=== PATIENT | male | born 1945 | race Caucasian/White ===

== ENCOUNTER 2018-03-22 21:44 | Inpatient (IN) ==
--- NOTE | 2018-03-22 22:28 | Emergency Department Note ---
Disposition Clinical Impression: Acute pancreatitis Qualifiers: Pancreatitis type: unspecified pancreatitis type Acute pancreatitis complication: unspecified Qualified Code(s): K85.90 - Acute pancreatitis without necrosis or infection, unspecified Disposition: Admitted As Inpatient Condition: Fair Time of Disposition: 07:20 Abdominal Pain HPI - General Chief Complaint: ED Dental/Oral Stated Complaint: abd pain Time Seen by Provider: 03/22/18 22:22 Source: patient, EMS Nursing Notes Reviewed: Yes Vital Signs Reviewed: Yes - History of Present Illness HPI Narrative: [place] 3-year-old male presents as transfer from the [place] for pancreatitis. Suspects he may also have cholelithiasis. Patient is a poor historian secondary to his history of dementia. He believes that he is here because somebody is out getting groceries for him. Unknown if this is his baseline. Review of systems unobtainable secondary to patient's dementia. Pain Scale: 5 - Related Data Home Medications Medication Instructions Recorded Confirmed Adults Multivitamin Caplet 1 tab PO DAILY 03/23/18 03/23/18 Apixaban 5 mg PO 1-2XD 03/23/18 03/23/18 Aspirin 81 mg PO DAILY 03/23/18 03/23/18 Atorvastatin 80 mg PO DAILY 03/23/18 03/23/18 Calcium 250+D Tablet 250 mg PO 1-2XD 03/23/18 03/23/18 Cholecalciferol (D-3) 1,000 units PO 1-2XD 03/23/18 03/23/18 Colace 100 mg PO 1-2XD PRN 03/23/18 03/23/18 Ferrous Sulfate 325 mg PO 1-2XD 03/23/18 03/23/18 Furosemide [Lasix] 20 mg PO DAILY 03/23/18 03/23/18 Gabapentin [Neurontin] 100 mg PO 1-2XD 03/23/18 03/23/18 Hydrophilic Cream 1-3XD 03/23/18 Insulin Glargine 22 units SQ HS 03/23/18 03/23/18 Melatonin 3 mg Tablet 9 mg PO HS 03/23/18 03/23/18 Metformin HCl 1,000 mg PO 1-2XD 03/23/18 03/23/18 Nystatin POWDER 1 appl 03/23/18 Ranitidine HCl 150 mg PO 1-2XD 03/23/18 03/23/18 Sennosides [Senokot] 8.6 mg PO 1-2XD PRN 03/23/18 03/23/18 Allergies Allergy/AdvReac Type Severity Reaction Status Date / Time Amoxicillin Allergy See Verified 03/22/18 21:56 Comments clavulanic acid Allergy See Verified 03/22/18 21:56 Comments fluvastatin Allergy See Verified 03/22/18 21:56 Comments lovastatin Allergy See Verified 03/22/18 21:56 Comments niacin Allergy See Verified 03/22/18 21:56 Comments omeprazole Allergy See Verified 03/22/18 21:56 Comments simvastatin Allergy See Verified 03/22/18 21:56 Comments topiramate Allergy See Verified 03/22/18 21:56 Comments venlafaxine Allergy See Verified 03/22/18 21:56 Comments All systems ED: reviewed and negative except as stated. Review of Systems: As Per HPI Abdominal Pain PMH - Past Medical History Medical history: Reports: COPD, DVT, dementia, diabetes, GERD, hyperlipidemia, hypertension, osteoporosis Male Surgical History: Reports: non-contributory - Social History Smoking status: Unknown if ever smoked Alcohol use: Reports: none Drug use: Reports: none Physical Exam Vital Signs Reviewed General: Patient is alert, oriented, and in no acute distress. Head: atraumatic, normocephalic Eye: normal appearance, PERRL, EOMI, no scleral icterus, no conjunctival injection ENT: mucous membranes moist, normal external ear exam Neck: normal inspection, trachea midline, full ROM Chest: normal inspection, symmetric chest rise Respiratory: Good respiratory effort. Bilateral breath sounds are clear without wheezing, crackles, or rhonchi. Cardiovascular: Regular rate and rhythm. No clicks, rubs, gallops, or murmors. Normal heart sounds. Abdomen: Bowel sounds present normoactive. Abdomen is soft, nondistended. Mild epigastric and mild right-sided abdominal tenderness. No guarding or rebound. Musculoskeletal: Spontaneously moving all extremities. Skin: warm, dry, intact. Neuro: Alert and oriented x4. Sensation light touch intact. Psych: Patient's affect is appropriate for situation. - General Limitations: no limitations General appearance: alert, in no apparent distress Course Course Narrative: [facility] -[facility] abdomen pelvis without contrast of 03/22/18:1. CT findings consistent with mild acute pancreatitis. No associated fluid collection. 2. Trace pericholecystic fluid. Bodies may be suggestive of acute cholecystitis. Recommend right upper quadrant ultrasound for further evaluation. 3. Left nonobstructing nephrolithiasis. 4. Atherosclerosis. -Two-view x-ray chest of 03/22/18: Impression-stable chest. -Three-view x-ray right wrist 03/22/18: Impression-no acute osseous abnormalities -Serum hematology of 03/22/18 at 19:09 WBC 18.2 Hgb 11.5 HCT 33.9 -Serum chemistry 03/22 at 19:09 Sodium 133 Potassium 5.1 Chloride 97 CO2 26 Glucose 380 BU and 47 Creatinine 2.40 EGFR 28.2 Calcium 9.4 Magnesium 2.1 Albumin 3.3 ALP 505 AST 284 ALT 448 Alkaline phosphatase 505 Lipase greater than 3000 Total bili 1.8 Direct bili 1.4 CK 45 Troponin less than 0.015 -Urinalysis 03 22 2018 at 20:30 Urine bilirubin negative Urine ketones negative Specific gravity 1.011 Occult blood negative PH 5.0 Nitrite negative We will ultrasound patient's gallbladder looking for possible cholelithiasis. I discussed the patient with the admitting hospitalist. He is in agreement to accept the patient for continued evaluation of pancreatitis with possibility of cholelithiasis. Gallbladder Ultrasound 03/22/18 22:35 IMPRESSION: 1. Overall the exam is severely limited due to bowel gas. 2. Indeterminate for cholelithiasis. There is no wall thickening or cholecystitis. The technologist demonstrated presence of sonographic Daniel sign. 3. Dilated common bowel duct measuring 1 cm, choledocholithiasis cannot be excluded. D/ / 03/23/2018 05:11:11 Aris Moore MD / elmer Interpreting Provider: Aris Moore MD Chest X-Ray 03/22/18 23:23 IMPRESSION: Negative portable study. D/ / Zo Skinner Cha, MD / Zo Skinner Cha, MD Interpreting Provider: Zo Skinner Cha, MD Vital Signs Temperature 98.1 F 03/22/18 21:57 Pulse Rate 98 03/22/18 21:57 Respiratory Rate 20 03/22/18 21:57 Blood Pressure 136/88 03/22/18 21:57 O2 Sat by Pulse Oximetry 95 03/22/18 21:57 Temperature 98.4 F 03/23/18 06:47 Pulse Rate 78 03/23/18 06:47 Respiratory Rate 16 03/23/18 06:47 Blood Pressure 134/68 03/23/18 06:47 O2 Sat by Pulse Oximetry 96 03/23/18 06:47 Oxygen Delivery Oxygen Delivery Room Air Abdominal Pain - Lab Data Result diagrams: 03/23/18 00:13 03/23/18 00:13 Lab Results 03/23/18 03/23/18 03/23/18 Range/Units 00:13 00:13 00:13 WBC 16.5 H (4.3-11.1) K/mcL RBC 3.21 L (4.19-5.50) M/mcL Hgb 10.5 L (12.9-16.9) g/dL Hct 30.3 L (37.5-50.1) % MCV 94.4 (83.0-100.0) fL MCH 32.7 (28.0-33.3) pg MCHC 34.7 (31.6-35.5) g/dL RDW 13.1 (11.5-14.5) % Plt Count 198 (140-400) K/mcL MPV 9.8 (9.4-12.4) fL Immature Gran % 0.3 (0-4) % Seg Neutrophils % 86.2 % Lymphocytes % 8.2 % Monocytes % 5.1 % Eosinophils % 0.0 % Basophils % 0.2 % Neutrophils # 14.2 H (1.6-8.9) K/mcL Lymphocytes # 1.4 (0.6-4.6) K/mcL Monocytes # 0.9 (0.0-1.3) K/mcL Eosinophils # 0.0 (0.0-0.6) K/mcL Basophils # 0.0 (0.0-0.2) K/mcL Immature Plt Fraction 3.0 (1.1-6.1) % Sodium 134 L (136-145) mEq/L Potassium 4.6 (3.5-5.1) mEq/L Chloride 98 (98-107) mEq/L Carbon Dioxide 23 (23-29) mEq/L BUN 49 H (8-23) mg/dL Creatinine 1.83 H (0.70-1.30) mg/dL Est GFR ( Amer) 44 L (> 60) Est GFR (Non-Af Amer) 36 L (> 60) BUN/Creatinine Ratio 27 H (6-26) Glucose 317 H (70-105) mg/dL Calculated Osmolality 303 H (280-300) Calcium 9.5 (8.6-10.3) mg/dL Phosphorus 2.3 L (2.7-4.5) mg/dL Magnesium 1.8 (1.6-2.6) mg/dL Total Bilirubin 1.8 H (0.3-1.0) mg/dL AST 198 H (13-39) Units/L ALT 362 H (7-52) Units/L Alkaline Phosphatase 403 H (34-104) Units/L Serum Total Protein 7.4 (6.4-8.9) g/dL Albumin 3.8 (3.5-5.7) g/dL Globulin 3.6 H (2.4-3.5) g/dL Albumin/Globulin Ratio 1.1 (1.1-2.2)
[2018-03-22] MEDS ORDERED: 0.9 % Sodium Chloride 500 ML IVC ONE (22:56)
[2018-03-22] MEDS ORDERED: Naloxone 0.4 MG/ML INJ IVP PRN (23:15)
[2018-03-22] MEDS ORDERED: D5% in Water 1,000 ML IVC PRN (23:21)
[2018-03-22] MEDS ORDERED: *HR* Dextrose 50 % in Water (Syg) 50 ML SYRINGE IVP PRN (23:21)
[2018-03-22] MEDS ORDERED: Dextrose Gel 15 GM/37.5 ML TUBE PO PRN ×2 (23:21)
--- NOTE | 2018-03-22 23:38 | Emergency Department Note ---
Disposition Clinical Impression: Acute pancreatitis Qualifiers: Pancreatitis type: unspecified pancreatitis type Acute pancreatitis complication: unspecified Qualified Code(s): K85.90 - Acute pancreatitis without necrosis or infection, unspecified Disposition: Admitted As Inpatient Condition: Fair General Adult HPI - General Chief complaint: ED Abdominal Pain Stated complaint: abd pain Time Seen by Provider: 03/22/18 22:22 Source: patient, EMS Limitations: no limitations Nursing Notes Reviewed: Yes Vital Signs Reviewed: Yes - History of Present Illness Pain Scale: 5 - Related Data Allergies Allergy/AdvReac Type Severity Reaction Status Date / Time Amoxicillin Allergy See Verified 03/22/18 21:56 Comments clavulanic acid Allergy See Verified 03/22/18 21:56 Comments fluvastatin Allergy See Verified 03/22/18 21:56 Comments lovastatin Allergy See Verified 03/22/18 21:56 Comments niacin Allergy See Verified 03/22/18 21:56 Comments omeprazole Allergy See Verified 03/22/18 21:56 Comments simvastatin Allergy See Verified 03/22/18 21:56 Comments topiramate Allergy See Verified 03/22/18 21:56 Comments venlafaxine Allergy See Verified 03/22/18 21:56 Comments Past Medical History - Past Medical History Medical history: Reports: COPD, DVT, dementia, diabetes, GERD, hyperlipidemia, hypertension, osteoporosis - Social History Smoking Status: Unknown if ever smoked Alcohol use: Reports: none Drug use: Reports: none Physical Exam - General Limitations: no limitations General appearance: alert, in no apparent distress Course Vital Signs Temperature 98.1 F 03/22/18 21:57 Pulse Rate 98 03/22/18 21:57 Respiratory Rate 20 03/22/18 21:57 Blood Pressure 136/88 03/22/18 21:57 O2 Sat by Pulse Oximetry 95 03/22/18 21:57 Temperature 98.1 F 03/22/18 21:57 Pulse Rate 98 03/22/18 21:57 Respiratory Rate 18 03/23/18 00:20 Blood Pressure 143/59 03/23/18 00:20 O2 Sat by Pulse Oximetry 95 03/22/18 21:57 Oxygen Delivery Oxygen Delivery Room Air Medical Decision Making - Lab Data Result diagrams: 03/23/18 00:13 Lab Results 03/23/18 Range/Units 00:13 WBC 16.5 H (4.3-11.1) K/mcL RBC 3.21 L (4.19-5.50) M/mcL Hgb 10.5 L (12.9-16.9) g/dL Hct 30.3 L (37.5-50.1) % MCV 94.4 (83.0-100.0) fL MCH 32.7 (28.0-33.3) pg MCHC 34.7 (31.6-35.5) g/dL RDW 13.1 (11.5-14.5) % Plt Count 198 (140-400) K/mcL MPV 9.8 (9.4-12.4) fL Immature Gran % 0.3 (0-4) % Seg Neutrophils % 86.2 % Lymphocytes % 8.2 % Monocytes % 5.1 % Eosinophils % 0.0 % Basophils % 0.2 % Neutrophils # 14.2 H (1.6-8.9) K/mcL Lymphocytes # 1.4 (0.6-4.6) K/mcL Monocytes # 0.9 (0.0-1.3) K/mcL Eosinophils # 0.0 (0.0-0.6) K/mcL Basophils # 0.0 (0.0-0.2) K/mcL Immature Plt Fraction 3.0 (1.1-6.1) % - Radiology Data Radiology results reviewed: Yes I reviewed the patient's radiology results. Gallbladder Ultrasound 03/22/18 22:35 IMPRESSION: 1. the overall exam is severely limited due to bowel gas. 2. Indeterminate for cholelithiasis. There is no wall thickening or cholecystitis. The technologist demonstrated presence of sonographic Daniel's sign. 3. Dilated common bowel duct measuring 1 cm, choledocholithiasis cannot be excluded. D/ / Aris Moore MD / Aris Moore MD Interpreting Provider: Aris Moore MD Attestation Statement - Attestation Attestation: I, Woody Bonner MD, personally evaluated this patient and discussed their management with the resident physician. I reviewed the resident's note and agree with the documented findings, medical decision making, and plan of care. 73-year-old male transferred here from the [place] for admission for pancreatitis and possible cholecystitis. Patient presented there with one day history of abdominal pain in the upper abdomen. Also nausea and one episode of vomiting. He was evaluated at the [place] and had a CT scan as well as lab work. He was found to have acute pancreatitis with a lipase greater than 3000. CT consistent with acute pancreatitis but also some questionable pericholecystic fluid and ultrasound recommended. On examination patient is a well-developed obese elderly male in no acute distress. He is alert. There is no cyanosis or diaphoresis. Breath sounds are decreased but equal bilaterally. Heart regular rate and rhythm. Abdomen is soft with present bowel sounds. There is mild epigastric tenderness. The hospitalist, Dr. Apodaca, was consulted and accepted admission of the patient.
--- NOTE | 2018-03-22 23:45 | Internal Med History&Physical ---
Date of Encounter: 03/23/18 Time of Encounter: 23:00 Internal Medicine - H&P: HPI Chief complaint: Abdominal pain, nausea and vomiting History of present illness: Mr. Urena is a 73 year old male with pmh of diabetes presenting after he was transferred from the [place] for acute pancreatitis. He reported was sent to his PCP for abdominal pain , nausea and vomiting. PCP subsequently dis labs showing a lipase of [address] as a CT scan showing acute pancreatitis. He has therefore been sent here for further management. Patient has a history of dementia and is unable to provide a lot of information. He does admit to abdominal pain, nausea and vomiting Past Med Surg Social Fam HX - Past Medical History Medical history: COPD, DVT, dementia, diabetes, GERD, hyperlipidemia, hypertension, osteoporosis Additional medical history: anemia, neuropathy, PSA, - Past Surgical History Additional surgical history: unknown surgical - Social History Smoking Status: Unknown if ever smoked Alcohol use: none Drug use: none Internal Medicine - H&P: Meds Apixaban [Eliquis] 5 mg PO BID 03/23/18 [History] Aspirin [Lo-Dose Aspirin EC] 81 mg PO DAILY 03/23/18 [History] Atorvastatin Calcium [Lipitor] 40 mg PO HS 03/23/18 [History] Calcium Carbonate/Vitamin D3 [Calcium 250+D Tablet] 1 tab PO BID 03/23/18 [ History] Cholecalciferol (D-3) [Vitamin D] 2,000 unit PO DAILY 03/23/18 [History] Docusate [Colace] 100 mg PO BID PRN 03/23/18 [History] Ferrous Sulfate 325 mg PO BIDWM 03/23/18 [History] Furosemide [Lasix] 20 mg PO DAILY 03/23/18 [History] Gabapentin [Neurontin] 100 mg PO BID 03/23/18 [History] Insulin Glargine,Hum.rec.anlog [Basaglar Kwikpen U-100] 22 unit SQ HS 03/23/18 [ History] Melatonin/Pyridoxine HCl (B6) [Melatonin 3 mg Tablet] 3 tab PO HS 03/23/18 [ History] Metformin HCl 1,000 mg PO BID 03/23/18 [History] Multivitamin [One Daily Multivitamin] 1 tab PO DAILY 03/23/18 [History] Ranitidine HCl [Heartburn Relief] 150 mg PO BID 03/23/18 [History] Sennosides [Evac-U-Gen] 8.6 mg PO DAILY PRN 03/23/18 [History] 3 Allergy/AdvReac Type Severity Reaction Status Date / Time Amoxicillin Allergy See Verified 03/23/18 08:54 Comments clavulanic acid Allergy See Verified 03/23/18 08:54 Comments fluvastatin Allergy See Verified 03/23/18 08:54 Comments lovastatin Allergy See Verified 03/23/18 08:54 Comments niacin Allergy See Verified 03/23/18 08:54 Comments omeprazole Allergy See Verified 03/23/18 08:54 Comments simvastatin Allergy See Verified 03/23/18 08:54 Comments topiramate Allergy See Verified 03/23/18 08:54 Comments venlafaxine Allergy See Verified 03/23/18 08:54 Comments ROS unobtainable: due to mental status All Systems PM: A 10-system review of systems was performed and is negative for pertinent findings except as documented above in the HPI. - Gastrointestinal Gastrointestinal: abdominal pain, vomiting - Constitutional Vitals: Temp Pulse Resp BP Pulse Ox 98.1 F 98 20 136/88 95 03/22/18 21:57 03/22/18 21:57 03/22/18 21:57 03/22/18 21:57 03/22/18 21:57 - Head Head exam: Present: atraumatic, normocephalic - Eye Eye exam: Present: PERRL, conjuntiva pink, sclera anicteric Pupils: Present: PERRL - Neck Neck exam general surgery: Present: supple, trachea midline. Absent: lymphadenopathy - Respiratory Respiratory exam: Present: CTAB. Absent: accessory muscle use, rales, rhonchi, wheezes - Cardiovascular Cardiovascular exam: Present: RRR, +S1, +S2. Absent: diastolic murmur, gallop, rubs, systolic murmur - GI/Abdominal GI/Abdominal exam: Present: normal bowel sounds, soft, tenderness, no peritoneal signs. Absent: distended - Extremities Exam Extremities exam: Present: warm, radial pulses palpable and symmetrical. Absent : calf tenderness, cyanotic, pedal edema - Neurological Exam Neurological exam: Present: CN II-XII intact, oriented X3, no focal deficits. Absent: pronater drift, facial droop, speech deficit - Skin Skin exam: Present: dry, intact Internal Med - H&P Results - Labs CBC & Chem 7: 03/23/18 00:13 03/23/18 00:13 - Assessment and plan (1) Acute pancreatitis Current Visit: Yes Status: Acute Assessment and plan: Will keep , NPO, start on IV fluids, pain control. F/U ultrasound to r/o out any abscesses/ fluid collections in light of leukocytosis Qualifiers: Pancreatitis type: unspecified pancreatitis type Acute pancreatitis complication: unspecified Qualified Code(s): K85.90 - Acute pancreatitis without necrosis or infection, unspecified (2) Leukocytosis Current Visit: Yes Status: Acute Assessment and plan: R/o sepsis, query pancreatic pseudocyst/aabscess, f/u abdominal ultrasound, f/u blood cultures ancxr, urinalysis. start empirically on aztreonam. may be 2/2 to dehydration. repeat CBC Qualifiers: Qualified Code(s): D72.829 - Elevated white blood cell count, unspecified (3) Acute kidney injury Current Visit: Yes Status: Acute Assessment and plan: CHEMA vs Chema on CKD. No baseline creatinine available. Patients creatinie from [employer] paper work is 2.40. Will give Iv fluids. Monitor creatinine (4) Diabetes mellitus Current Visit: Yes Status: Acute Assessment and plan: Place on sliding scale. Monitor fingersticks Qualifiers: Qualified Code(s): E11.9 - Type 2 diabetes mellitus without complications (5) Transaminitis Current Visit: Yes Status: Acute Assessment and plan: F/u abdominal ultrasound. IV fluid hydration (6) DVT prophylaxis Current Visit: Yes Status: Acute Assessment and plan: Heparin sc - Time Spent With Patient Total time spent is greater than 50% in coordination of care (as documented) at patient's floor/unit and/or counseling patient:
[2018-03-23] MEDS: Aztreonam 1,000 MG in Water for inj. (sterile) 20 ML 10 ML IVP SCH ×3 (00:13→17:04)
[2018-03-23] MEDS: 0.9 % Sodium Chloride 1,000 ML IVC SCH ×3 (00:16→18:42)
[2018-03-23 00:45] LABS: Basophils % 0.2 %; Hematocrit 30.3 % (37.5-50.1); Hemoglobin 10.5 g/dL (12.9-16.9); Immature Granulocytes % 0.3 % (0-4); Lymphocytes # 1.4 K/mcL (0.6-4.6); Lymphocytes % 8.2 %; Mean Corpuscular HGB Conc 34.7 g/dL (31.6-35.5); Mean Corpuscular Hemoglobin 32.7 pg (28.0-33.3); Mean Corpuscular Volume 94.4 fL (83.0-100.0); Mean Platelet Volume 9.8 fL (9.4-12.4); Monocytes # 0.9 K/mcL (0.0-1.3); Monocytes % 5.1 %; Neutrophils # 14.2 K/mcL (1.6-8.9); Platelet Count 198 K/mcL (140-400); Red Blood Count 3.21 M/mcL (4.19-5.50); Red Cell Distribution Width 13.1 % (11.5-14.5); Segmented Neutrophils % 86.2 %
[2018-03-23] MEDS: Insulin LISPRO 300 UNITS/3 ML VIAL SQ SCH ×4 (01:15→18:46)
[2018-03-23 03:19] LABS: Bilirubin,Urine Negative (Negative); Blood,Urine Negative (Negative); Clarity,Urine Cloudy (Clear); Color,Urine Dark Yellow (Yellow); Glucose,Urine (UA) Normal (Normal); Ketones,Urine Negative (Negative); Leukocyte Esterase,Urine Trace (Negative); Nitrite,Urine Negative (Negative); PH,Urine 5.5 pH Units (5.0-8.0); Protein,Urine 100 mg/dL (Neg-Trace); Specific Gravity,Urine 1.018 (1.010-1.025); Urobilinogen,Urine Normal (Normal)
[2018-03-23 03:21] LABS: Squamous Epithelial Cell,Urine Many per lpf (None-Few)
[2018-03-23 03:40] LABS: Amorphous Sediment,Urine Few (Few); Bacteria,Urine Few per hpf (None-Few); Hyaline Casts,Urine Few per lpf (None-Few); RBC,Urine 0-3 per hpf (0-3)
[2018-03-23 04:46] LABS: Magnesium 1.8 mg/dL (1.6-2.6); Phosphorous 2.3 mg/dL (2.7-4.5)
[2018-03-23 04:47] LABS: Albumin 3.8 g/dL (3.5-5.7); Albumin/Globulin Ratio 1.1 (1.1-2.2); Bilirubin,Total 1.8 mg/dL (0.3-1.0); Calcium 9.5 mg/dL (8.6-10.3); Globulin 3.6 g/dL (2.4-3.5); Potassium 4.6 mEq/L (3.5-5.1); Total Protein 7.4 g/dL (6.4-8.9)
[2018-03-23 08:36] LABS: Estimated Average Glucose 157 mg/dl; Hemoglobin A1C 7.1 %
--- NOTE | 2018-03-23 13:09 | Gastroenterology Consult Note ---
<Art Holbrook - Last Filed: 03/23/18 14:22> Date of Encounter: 03/23/18 Time of Encounter: 13:08 - Assessment and plan (1) Acute pancreatitis Current Visit: Yes Status: Acute Assessment and plan: - Evidence of obstruction given elevated Alk phos, LFTs, CBD dilation - Suspect gallstone pancreatitis however US was obstructed by bowel gas. Denies alcohol use, family history of GI problems. - Radiologist contacted personally and says there is no definite obstructing stone - CT at [facility] shows mild inflammatory fat stranding around pancreatitis. Lipase > 3000 - Patient is asymptomatic right now. - MRCP ordered and pending. - Labs improving from [facility]. Plan - Possible ERCP tonight/tomorrow pending results of MRCP - Patient may have passed the stone or may have moved. MRCP will confirm. - NPO Supportive care Qualifiers: Pancreatitis type: unspecified pancreatitis type Acute pancreatitis complication: unspecified Qualified Code(s): K85.90 - Acute pancreatitis without necrosis or infection, unspecified (2) Gallstone pancreatitis Current Visit: Yes Status: Suspected Assessment and plan: - As above. - Unsure of cause of CBD dilation. Radiologist contacted and states that it may be an overestimation. - Will follow up on MRCP. - Time Spent With Patient Total time spent is greater than 50% in coordination of care (as documented) at patient's floor/unit and/or counseling patient: GI History of Present Illness - Data of Consult Consult date: 03/23/18 Requesting Physician: Manav Apodaca MD - Consult Narrative Reason for consult: Pancreatitis, CBD dilation History of present illness: Mr. Urena is a 73 year old male with past medical history of COPD, diabetes, dementia, GERD presents to emergency room from [facility] with plan of abdominal pain 1 day. No overdose of a history of dementia and is unable to provide full history. He states that he awoke with mid abdominal sharp pain without radiation on day of admission. Currently during time of interview, he denies any symptoms. He states that he was experiencing some nausea with 1 episode of vomiting including food contents and no blood however this resolved as well. He denies any changes in bowel movements since his last one was yesterday morning. He has never experienced pain like this in the past. At the [facility] labs: -CT abdomen pelvis without contrast of 03/22/18:1. CT findings consistent with mild acute pancreatitis. No associated fluid collection. 2. Trace pericholecystic fluid. Bodies may be suggestive of acute cholecystitis. Recommend right upper quadrant ultrasound for further evaluation. 3. Left nonobstructing nephrolithiasis. 4. Atherosclerosis. WBC 18.2, Hgb 11.5, HCT 33.9 Sodium 133 Potassium 5.1 Chloride 97 CO2 26 Glucose 380 BU and 47 Creatinine 2.40 EGFR 28.2 Calcium 9.4 Magnesium 2.1 Albumin 3.3 ALP 505 AST 284 ALT 448 Alkaline phosphatase 505 Lipase greater than 3000 Total bili 1.8 Direct bili 1.4 CK 45 Patient denies any abdominal surgeries. He states he is a former smoker quitting proximally 5 years ago. Denies any history of heavy drinking. Denies any recreational drug abuse. Gallbladder ultrasound at this facility shows calm bile duct dilation at approximately 1.0 cm. Film is noted to be severely obscured due to bowel gas. Past Med Surg Social Fam HX - Past Medical History Medical history: COPD, DVT, dementia, diabetes, GERD, hyperlipidemia, hypertension, osteoporosis Additional medical history: anemia, neuropathy, PSA, Psychiatric history: other - Past Surgical History Additional surgical history: unknown surgical - Social History Smoking Status: Unknown if ever smoked Smokeless Tobacco Status: No Alcohol use: none Drug use: none ROS unobtainable: due to mental status - Gastrointestinal Gastrointestinal: Present: abdominal pain, nausea, vomiting. Absent: change in bowel habits, coffee ground emesis, constipation, diarrhea, heartburn, hematemesis, hematochezia, melena - Constitutional Constitutional: no fever(s) - Cardiovascular Cardiovascular ROS: Absent: chest pain - Respiratory Respiratory IM: Present: dyspnea - Neurological ROS Neurological GI: Present: confusion - Constitutional Vitals: Temp Pulse Resp BP Pulse Ox 98.2 F 76 18 155/66 95 03/23/18 11:57 03/23/18 11:57 03/23/18 11:57 03/23/18 11:57 03/23/18 11:57 Exam: Gen.: Vitals noted. No acute distress. Alert and oriented, answers questions appropriately but does search for answers. Resting comfortably in bed HEENT: PERRL/EOMI, oropharynx clear, Normocephalic, atraumatic, moist mucous membranes Cardiac: RRR, no murmur, +S1/S2 Pulmonary: CTA bilaterally, no wheezes, rales or rhonchi, equal chest expansion. Decreased lung sounds in bases Abdomen: soft, nontender, BS noted, no guarding, no rebound, no peritoneal signs. Nondistended Extremities: no BLE edema, nontender calf, no cyanosis or clubbing Neuro: A&O, moves all extremities, no focal deficits Psych: Appropriate mood and behavior Results - Labs CBC & Chem 7: 03/23/18 00:13 03/23/18 00:13 Labs: Last Result Calcium 9.5 mg/dL (8.6-10.3) 03/23/18 00:13 Triglycerides 58 mg/dL (< 150) 03/23/18 11:39 Entire Visit Hgb 10.5 g/dL (12.9-16.9) L 03/23/18 00:13 Hct 30.3 % (37.5-50.1) L 03/23/18 00:13 Total Bilirubin 1.8 mg/dL (0.3-1.0) H 03/23/18 00:13 AST 198 Units/L (13-39) H 03/23/18 00:13 ALT 362 Units/L (7-52) H 03/23/18 00:13 Consult Discharge Plan - Plan [facility]errals: [facility] [Primary Care Provider[facility] - <Shira Brown - Last Filed: 03/23/18 19:00> Date of Encounter: 03/23/18 Time of Encounter: 17:30 - Time Spent With Patient Total time spent is greater than 50% in coordination of care (as documented) at patient's floor/unit and/or counseling patient: GI History of Present Illness - Data of Consult Requesting Physician: Manav Apodcaa MD - Consult Narrative History of present illness: Mr. Urena is a 73 year old male - Constitutional Vitals: Temp Pulse Resp BP Pulse Ox 98.9 F 73 18 153/71 97 03/23/18 16:38 03/23/18 16:38 03/23/18 16:38 03/23/18 16:38 03/23/18 16:38 Results - Labs CBC & Chem 7: 03/23/18 00:13 03/23/18 00:13 Labs: Last Result Calcium 9.5 mg/dL (8.6-10.3) 03/23/18 00:13 Triglycerides 58 mg/dL (< 150) 03/23/18 11:39 Entire Visit Hgb 10.5 g/dL (12.9-16.9) L 03/23/18 00:13 Hct 30.3 % (37.5-50.1) L 03/23/18 00:13 Total Bilirubin 1.8 mg/dL (0.3-1.0) H 03/23/18 00:13 AST 198 Units/L (13-39) H 03/23/18 00:13 ALT 362 Units/L (7-52) H 03/23/18 00:13 - Attending Attestation I have personally performed a face to face evaluation on this patient. I have reviewed and agree with the care plan. History and Exam by me shows: Patient seen denies any abdominal pain. Patient with gallstone pancreatitis on examination belly is benign. Does has elevated alkaline phosphatase and bilirubin concerning for retained stone. Assessment: Gallstone pancreatitis rule out CBD stone Recommendation: MRCP if positive for stone then ERCP
--- NOTE | 2018-03-23 17:15 | Internal Med Progress Note ---
Date of Encounter: 03/23/18 Time of Encounter: 10:50 - Assessment and plan (1) Acute pancreatitis Current Visit: Yes Status: Acute Assessment and plan: Noted per CT scan at [facility]. Lipase elevated at 3000. Pt with abdominal pain and nausea. GI has been consulted, I appreciate their recommendations and consultation. Ultrasound showed 1 cm dilated CBD, choledocholithiasis could not be ruled out. MRCP ordered and still pending. NPO, IVF hydration, pain control MRCP Monitor labs and vitals Qualifiers: Pancreatitis type: unspecified pancreatitis type Acute pancreatitis complication: unspecified Qualified Code(s): K85.90 - Acute pancreatitis without necrosis or infection, unspecified (2) Acute kidney injury Current Visit: Yes Status: Acute Assessment and plan: IVF hydration Avoid nephrotoxins Continue to monitor labs Consider nephrology consultation if no improvement in the a.m. (3) DVT prophylaxis Current Visit: Yes Status: Acute Assessment and plan: Heparin SQ BID (4) Diabetes mellitus Current Visit: Yes Status: Acute Assessment and plan: SSI, accuchecks achs, diabetic diet when able to eat. Qualifiers: Diabetes mellitus type: type 2 Diabetes mellitus half-way insulin use: unspecified half-way insulin use status Diabetes mellitus complication status : without complication Qualified Code(s): E11.9 - Type 2 diabetes mellitus without complications (5) Leukocytosis Current Visit: Yes Status: Acute Assessment and plan: WBC 16.5 this a.m. Blood cultures pending, urine not indicative of UTI. Unclear source, possibly pancreatitis vs reactive from dehydration/stress Pt has been started on Aztreonam Recheck CBC in the a.m. Pt does not have fever, tachypnea, tachycardia, or hypotension. Qualifiers: Leukocytosis type: unspecified Qualified Code(s): D72.829 - Elevated white blood cell count, unspecified (6) Transaminitis Current Visit: Yes Status: Acute Assessment and plan: Abdominal ultrasound shows dilated CBD, choledocholitiasis could not be excluded. MRCP ordered and pending. IV fluid hydration Recheck labs in the a.m. (7) Anemia Current Visit: Yes Status: Acute Assessment and plan: Hgb 10.5/ Hct 30.3 No signs of bleeding, no hematuria on UA. Stool occult blood ordered. Could be dilutional from 3 liters of IV fluids, will follow H and H. Qualifiers: Anemia type: unspecified type Qualified Code(s): D64.9 - Anemia, unspecified - Time Spent With Patient Total time spent is greater than 50% in coordination of care (as documented) at patient's floor/unit and/or counseling patient: less than 15 minutes - Subjective Interval history: Pt was seen and assessed at bedside at 1050a.m. Pt states that his pain has improved as long as he is lying still. He denies headache, nausea, diarrhea, vomiting. Pt denies chest pain or SOB. He reports chronic BLE cellulitis, he states it is the same as it always looks and denies pain. He denies fever or chills. - Constitutional Vitals: Temp Pulse Resp BP Pulse Ox 98.9 F 73 18 153/71 97 03/23/18 16:38 03/23/18 16:38 03/23/18 16:38 03/23/18 16:38 03/23/18 16:38 General appearance: Present: cooperative, pleasant, no acute distress, answers questions appropriately - Head Head exam: Present: atraumatic, normal inspection, normocephalic - Eye Eye exam: Present: normal appearance, conjuntiva pink, sclera anicteric - Neck Neck exam general surgery: Present: supple, trachea midline. Absent: lymphadenopathy, tenderness - Respiratory Respiratory exam: Present: CTAB. Absent: accessory muscle use, rales, rhonchi, wheezes - Cardiovascular Cardiovascular exam: Present: RRR, +S1, +S2. Absent: diastolic murmur, gallop, rubs, systolic murmur - GI/Abdominal GI/Abdominal exam: Present: normal bowel sounds, soft, no peritoneal signs. Absent: distended, hepatomegaly, tenderness - Extremities Exam Extremities exam: Present: normal capillary refill, normal inspection, tenderness, warm, radial pulses palpable and symmetrical. Absent: calf tenderness, cyanotic, pedal edema - Neurological Exam Neurological exam: Present: alert, oriented X3, no focal deficits. Absent: facial droop, speech deficit - Skin Skin exam: Present: dry, intact, normal color, warm. Absent: rash Internal Medicine: Result - Labs CBC & Chem 7: 03/23/18 00:13 03/23/18 00:13 Labs: Urine 03/23/18 Range/Units 02:50 Urine Color Dark Yellow (Yellow) Urine Clarity Cloudy A (Clear) Urine pH 5.5 (5.0-8.0) pH Units Ur Specific [place] 1.018 (1.010-1.025) Urine Protein 100 H (Neg-Trace) mg/dL Urine Glucose (UA) Normal (Normal) mg/dL Consult Discharge Plan - Plan [facility]errals: [facility] [Primary Care Provider] -
[2018-03-23] MEDS ORDERED: 0.9 % Sodium Chloride 1,000 ML ONE (17:31)
[2018-03-23 20:12] LABS: VBG Ionized Calcium 1.14 mmol/L (1.15-1.35)
[2018-03-23 21:38] LABS: INR 1.2; Prothrombin Time 13.1 Seconds (9.4-12.1)
[2018-03-24] MEDS: Aztreonam 1,000 MG in Water for inj. (sterile) 20 ML 10 ML IVP SCH ×4 (00:25→23:58)
[2018-03-24] MEDS: Insulin LISPRO 300 UNITS/3 ML VIAL SQ SCH ×5 (04:56→23:59)
[2018-03-24] MEDS ORDERED: *HR* FentaNYL (PF) 100 MCG/2 ML VIAL ONE (07:42)
[2018-03-24] MEDS ORDERED: *HR* Propofol 200 MG/20 ML VIAL IVP ONE (07:42)
[2018-03-24] MEDS ORDERED: *HR* Succinylcholine 200 MG/10 ML VIAL IVP ONE (07:43)
[2018-03-24 07:55] LABS: Basophils % 0.3 %; Eosinophils # 0.1 K/mcL (0.0-0.6); Eosinophils % 0.5 %; Hematocrit 29.6 % (37.5-50.1); Hemoglobin 10.2 g/dL (12.9-16.9); Immature Granulocytes % 0.3 % (0-4); Immature Platelets 2.4 % (1.1-6.1); Lymphocytes # 1.3 K/mcL (0.6-4.6); Lymphocytes % 9.8 %; Mean Corpuscular HGB Conc 34.5 g/dL (31.6-35.5); Mean Corpuscular Hemoglobin 32.4 pg (28.0-33.3); Mean Platelet Volume 10.1 fL (9.4-12.4); Monocytes # 0.8 K/mcL (0.0-1.3); Monocytes % 6.4 %; Neutrophils # 10.8 K/mcL (1.6-8.9); Platelet Count 161 K/mcL (140-400); Red Blood Count 3.15 M/mcL (4.19-5.50); Red Cell Distribution Width 13.2 % (11.5-14.5); Segmented Neutrophils % 82.7 %
[2018-03-24 08:27] LABS: BUN/Creatinine Ratio 29 (6-26); Blood Urea Nitrogen 26 mg/dL (8-23); Calcium 8.8 mg/dL (8.6-10.3); Carbon Dioxide 22 mEq/L (23-29); Chloride 104 mEq/L (98-107); Glucose 187 mg/dL (70-105); Osmolality,Calculated 292 (280-300); Potassium 3.9 mEq/L (3.5-5.1); Sodium 136 mEq/L (136-145); eGFR For African Americans > 60 (> 60); eGFR For Non-African Americans > 60 (> 60)
[2018-03-24] MEDS ORDERED: Lidocaine -MPF 2% 2 ML VIAL ONE (08:58)
--- NOTE | 2018-03-24 11:12 | Anesthesia Evaluation PreOp ---
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) Other Medical History: Diabetes Type II Anesthesia History: No Prior Anesthetic Complications Alcohol Use: none Drug use: none Medications and Allergies Apixaban [Eliquis] 5 mg PO BID 03/23/18 [History] Aspirin [Lo-Dose Aspirin EC] 81 mg PO DAILY 03/23/18 [History] Atorvastatin Calcium [Lipitor] 40 mg PO HS 03/23/18 [History] Calcium Carbonate/Vitamin D3 [Calcium 250+D Tablet] 1 tab PO BID 03/23/18 [ History] Cholecalciferol (D-3) [Vitamin D] 2,000 unit PO DAILY 03/23/18 [History] Docusate [Colace] 100 mg PO BID PRN 03/23/18 [History] Ferrous Sulfate 325 mg PO BIDWM 03/23/18 [History] Furosemide [Lasix] 20 mg PO DAILY 03/23/18 [History] Gabapentin [Neurontin] 100 mg PO BID 03/23/18 [History] Insulin Glargine,Hum.rec.anlog [Basaglar Kwikpen U-100] 22 unit SQ HS 03/23/18 [ History] Melatonin/Pyridoxine HCl (B6) [Melatonin 3 mg Tablet] 3 tab PO HS 03/23/18 [ History] Metformin HCl 1,000 mg PO BID 03/23/18 [History] Multivitamin [One Daily Multivitamin] 1 tab PO DAILY 03/23/18 [History] Ranitidine HCl [Heartburn Relief] 150 mg PO BID 03/23/18 [History] Sennosides [Evac-U-Gen] 8.6 mg PO DAILY PRN 03/23/18 [History] 3 Allergy/AdvReac Type Severity Reaction Status Date / Time Amoxicillin Allergy See Verified 03/23/18 08:54 Comments clavulanic acid Allergy See Verified 03/23/18 08:54 Comments fluvastatin Allergy See Verified 03/23/18 08:54 Comments lovastatin Allergy See Verified 03/23/18 08:54 Comments niacin Allergy See Verified 03/23/18 08:54 Comments omeprazole Allergy See Verified 03/23/18 08:54 Comments simvastatin Allergy See Verified 03/23/18 08:54 Comments topiramate Allergy See Verified 03/23/18 08:54 Comments venlafaxine Allergy See Verified 03/23/18 08:54 Comments - Meds/Allergy Pre-op Review Medications Reviewed: Yes Allergies Reviewed: Yes Beta Blockers on Current Med List: No Anesthesia Results - Labs 03/23/18 00:13 03/23/18 00:13 - Imaging EKG: report reviewed (SR) Anesthesia Exam Vital Signs/O2 Sat/Glucose, Most Current Resp BP Pulse Ox 03/24/18 11:10 18 190/82 97 Height: 5'7 Weight: 219 lbs NPO (# of Hours): MN Pain Scale: 0 - HEENT Pupil (Motor): Pupils equal, EOMI Mallampati: III Denture Type: Upper: Complete Oral Opening: Less than or equal to 3 - CHUTE TENDER LOC: Disoriented CHUTE TENDER Motor: Normal RUE, Normal LUE, Normal RLE, Normal LLE, Normal Face CHUTE TENDER Sensory: Normal: RUE, LUE, RLE, LLE, Face - Cardiac Rhythm: Regular Murmur: None JVD: No Carotid Bruit: No - Pulmonary Breath Sounds: bilateral Clear Respiratory Effort: Symmetrical Anesthesia Assess/Plan ASA Score: 3 (HTN Dementia DM) Modified Kaylynn Scale for Level of Consciousness: Cooperative, oriented, and tranquil Anesthetic Plan: General Monitoring Plan: Standard Monitors Recovery Plan: PACU (Discussed GA, agrees to proceed, discussed with POA)
--- NOTE | 2018-03-24 11:14 | Anesthesia Evaluation Post Op ---
Date of Encounter: 03/24/18 Time of Encounter: 10:35 - Vital Signs Vital Signs: Vital Signs/O2 Sat/Glucose, Most Current Resp BP Pulse Ox 03/24/18 11:10 18 190/82 97 - Lungs Lungs: Clear Ascult./Percussion - Airway Airway: Non-obstructed - Cardiovascular Regular Rate - Mental Status Mental Status: Alert & Oriented, Answers Appropriately - Pain Pain Scale: 0 - Nausea Vomiting Nausea Vomiting: Not Present - Hydration Hydration: NPO - Discharge PostOp Status: Transfer Patient to floor
[2018-03-24] MEDS: 0.9 % Sodium Chloride 1,000 ML IVC SCH ×2 (11:46→16:29)
--- NOTE | 2018-03-24 17:47 | Event Note ---
Date of Encounter: 03/24/18 Time of Encounter: 07:50 [facility] down time. See paper documentation.
[2018-03-25] MEDS: *HR* Morphine 2 MG/ML SYRINGE IVP PRN ×2 (04:11→21:03)
[2018-03-25 05:24] LABS: Basophils % 0.2 %; Eosinophils # 0.1 K/mcL (0.0-0.6); Eosinophils % 0.9 %; Hematocrit 30.8 % (37.5-50.1); Hemoglobin 10.8 g/dL (12.9-16.9); Immature Granulocytes % 0.5 % (0-4); Lymphocytes # 1.5 K/mcL (0.6-4.6); Lymphocytes % 11.5 %; Mean Corpuscular HGB Conc 35.1 g/dL (31.6-35.5); Mean Corpuscular Hemoglobin 32.5 pg (28.0-33.3); Mean Corpuscular Volume 92.8 fL (83.0-100.0); Mean Platelet Volume 9.8 fL (9.4-12.4); Monocytes # 0.9 K/mcL (0.0-1.3); Neutrophils # 10.1 K/mcL (1.6-8.9); Platelet Count 160 K/mcL (140-400); Red Blood Count 3.32 M/mcL (4.19-5.50); Red Cell Distribution Width 12.9 % (11.5-14.5); Segmented Neutrophils % 79.9 %
[2018-03-25 05:42] LABS: BUN/Creatinine Ratio 26 (6-26); Blood Urea Nitrogen 21 mg/dL (8-23); Calcium 8.6 mg/dL (8.6-10.3); Carbon Dioxide 23 mEq/L (23-29); Chloride 103 mEq/L (98-107); Glucose 131 mg/dL (70-105); Osmolality,Calculated 285 (280-300); Potassium 3.5 mEq/L (3.5-5.1); Sodium 135 mEq/L (136-145); eGFR For African Americans > 60 (> 60); eGFR For Non-African Americans > 60 (> 60)
[2018-03-25] MEDS: Insulin LISPRO 300 UNITS/3 ML VIAL SQ SCH ×3 (06:23→17:35)
[2018-03-25] MEDS: Aztreonam 1,000 MG in Water for inj. (sterile) 20 ML 10 ML IVP SCH ×2 (09:04→17:07)
[2018-03-25] MEDS ORDERED: 0.9 % Sodium Chloride 1,000 ML IVC SCH (13:00)
--- NOTE | 2018-03-25 17:41 | Internal Med Progress Note ---
Date of Encounter: 03/25/18 Time of Encounter: 10:40 - Assessment and plan (1) Acute pancreatitis Current Visit: Yes Status: Acute Assessment and plan: Noted per CT scan at [facility]. Lipase elevated at 3000 on admission. Pt with abdominal pain and nausea that are resolving. Pt states that pain is somewhat better, denies nausea. GI has been consulted, I appreciate their recommendations and consultation. ERCP 03/25 total of approximately 10 stones, 4-6 mm in size, removed. Patient has a 10-Green[place]ic by 9 cm temporary stent that was placed 8 cm in the common bile duct. Patient will have ERCP for stent removal in 2 months. IVF hydration, pain control Patient has been started on clear liquid diet and is tolerating well, we will advance as tolerated. Monitor labs and vitals Qualifiers: Pancreatitis type: unspecified pancreatitis type Acute pancreatitis complication: unspecified Qualified Code(s): K85.90 - Acute pancreatitis without necrosis or infection, unspecified (2) Acute kidney injury Current Visit: Yes Status: Acute Assessment and plan: 0.80/> 60 IVF hydration while patient is still on clear liquid diet. Renal function appears to have improved with gentle IV fluid hydration. Avoid nephrotoxins Continue to monitor labs Consider nephrology consultation if no improvement in the a.m. (3) DVT prophylaxis Current Visit: Yes Status: Acute Assessment and plan: Heparin SQ (4) Diabetes mellitus Current Visit: Yes Status: Acute Assessment and plan: SSI, accuchecks achs, diabetic diet when able to eat. 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 Blood cultures pending, urine not indicative of UTI. Unclear source, most likely pancreatitis Continue IV aztreonam Continue to trend labs Pt does not have fever, tachypnea, tachycardia, or hypotension. Qualifiers: Leukocytosis type: unspecified Qualified Code(s): D72.829 - Elevated white blood cell count, unspecified (6) Transaminitis Current Visit: Yes Status: Acute Assessment and plan: Abdominal ultrasound shows dilated CBD, MRCP and stone removal on 03/24. Recheck labs in the a.m. (7) Anemia Current Visit: Yes Status: Acute Assessment and plan: Hgb 10.8/ Hct 30.8 No signs of bleeding, no hematuria on UA. Stool occult blood ordered, remains pending Could be dilutional from IV fluids, will follow H and H. Qualifiers: Anemia type: unspecified type Qualified Code(s): D64.9 - Anemia, unspecified - Time Spent With Patient Total time spent is greater than 50% in coordination of care (as documented) at patient's floor/unit and/or counseling patient: less than 15 minutes - Subjective Interval history: Pt was seen and assessed at bedside at 1040 a.m. Pt states that his pain has improved, abdomen remains tender to palpation near umbilicus. He denies headache , nausea, diarrhea, vomiting. Pt denies chest pain or SOB. He reports chronic BLE cellulitis that is tender to palpation today, seems to be a little more red , however, pt states that it looks the same. He still is alert, oriented to name only. States that Sean is the president and is unsure of where he is or of the year. - Constitutional Vitals: Temp Pulse Resp BP Pulse Ox 98.3 F 86 16 144/66 97 03/25/18 14:48 03/25/18 14:48 03/25/18 14:48 03/25/18 14:48 03/25/18 14:48 General appearance: Present: cooperative, pleasant, no acute distress, answers questions appropriately - Head Head exam: Present: atraumatic, normal inspection, normocephalic - Eye Eye exam: Present: normal appearance, conjuntiva pink, sclera anicteric - Neck Neck exam general surgery: Present: supple, trachea midline. Absent: lymphadenopathy, tenderness - Respiratory Respiratory exam: Present: chest wall tenderness, CTAB. Absent: accessory muscle use, rales, rhonchi, stridor, wheezes - Cardiovascular Cardiovascular exam: Present: RRR, +S1, +S2. Absent: diastolic murmur, gallop, rubs, systolic murmur - GI/Abdominal GI/Abdominal exam: Present: normal bowel sounds, soft. Absent: distended, hepatomegaly, tenderness - Extremities Exam Extremities exam: Present: normal capillary refill, normal inspection, warm, radial pulses palpable and symmetrical. Absent: calf tenderness, cyanotic, pedal edema, tenderness - Neurological Exam Neurological exam: Present: alert, oriented X3, no focal deficits. Absent: facial droop, speech deficit - Skin Skin exam: Present: dry, intact, normal color, warm. Absent: rash Internal Medicine: Result - Labs CBC & Chem 7: 03/25/18 03:45 03/25/18 03:45 Labs: Short CBC 03/25/18 Range/Units 03:45 WBC 12.7 H (4.3-11.1) K/mcL Hgb 10.8 L (12.9-16.9) g/dL Hct 30.8 L (37.5-50.1) % Plt Count 160 (140-400) K/mcL Neutrophils # 10.1 H (1.6-8.9) K/mcL BMP 03/25/18 03:45 Sodium 135 L Potassium 3.5 Chloride 103 Carbon Dioxide 23 BUN 21 Creatinine 0.80 Glucose 131 H Calcium 8.6 - ABG Interpretation ABG results: PT/INR, D-dimer PT 13.1 Seconds (9.4-12.1) H 03/23/18 21:11 Consult Discharge Plan - Plan [facility]errals: [facility] [Primary Care Provider] -
[2018-03-26] MEDS: Aztreonam 1,000 MG in Water for inj. (sterile) 20 ML 10 ML IVP SCH ×3 (00:27→17:42)
[2018-03-26] MEDS: Insulin LISPRO 300 UNITS/3 ML VIAL SQ SCH ×5 (00:33→23:28)
[2018-03-26] MEDS: *HR* Morphine 2 MG/ML SYRINGE IVP PRN ×2 (03:17→20:22)
[2018-03-26 05:30] LABS: Basophils % 0.4 %; Eosinophils # 0.2 K/mcL (0.0-0.6); Eosinophils % 1.6 %; Hematocrit 28.9 % (37.5-50.1); Hemoglobin 10.2 g/dL (12.9-16.9); Immature Granulocytes % 0.4 % (0-4); Lymphocytes # 1.8 K/mcL (0.6-4.6); Lymphocytes % 16.7 %; Mean Corpuscular HGB Conc 35.3 g/dL (31.6-35.5); Mean Corpuscular Hemoglobin 32.7 pg (28.0-33.3); Mean Corpuscular Volume 92.6 fL (83.0-100.0); Mean Platelet Volume 9.2 fL (9.4-12.4); Monocytes # 0.9 K/mcL (0.0-1.3); Monocytes % 8.6 %; Neutrophils # 7.6 K/mcL (1.6-8.9); Platelet Count 156 K/mcL (140-400); Red Blood Count 3.12 M/mcL (4.19-5.50); Segmented Neutrophils % 72.3 %
[2018-03-26 06:39] LABS: BUN/Creatinine Ratio 29 (6-26); Blood Urea Nitrogen 23 mg/dL (8-23); Calcium 8.2 mg/dL (8.6-10.3); Carbon Dioxide 23 mEq/L (23-29); Chloride 107 mEq/L (98-107); Glucose 135 mg/dL (70-105); Osmolality,Calculated 292 (280-300); Potassium 3.4 mEq/L (3.5-5.1); Sodium 138 mEq/L (136-145); eGFR For African Americans > 60 (> 60); eGFR For Non-African Americans > 60 (> 60)
[2018-03-26 08:35] LABS: Immunoglobulin G Subclass 1 580 mg/dL (240-1118); Immunoglobulin G Subclass 2 270 mg/dL (124-549); Immunoglobulin G Subclass 3 48 mg/dL (21-134); Immunoglobulin G Subclass 4 34 mg/dL (1-123)
[2018-03-26 10:34] LABS: ANA IgG by ELISA NONE DETECTED (None Detected)
--- NOTE | 2018-03-26 13:21 | Internal Med Progress Note ---
Date of Encounter: 03/26/18 Time of Encounter: 09:15 - Assessment and plan (1) Acute pancreatitis Current Visit: Yes Status: Acute Assessment and plan: Repeating amylase, lipase, transaminases. Pt continues to deny nausea and reports that pain is better. ERCP 03/25 total of approximately 10 stones, 4-6 mm in size, removed. Patient has a 10-[place] by 9 cm temporary stent that was placed 8 cm in the common bile duct. Patient will have ERCP for stent removal in 2 months. IVF hydration, pain control Advance to full liquids for dinner. Pt tolerating clear liquids well. Qualifiers: Pancreatitis type: unspecified pancreatitis type Acute pancreatitis complication: unspecified Qualified Code(s): K85.90 - Acute pancreatitis without necrosis or infection, unspecified (2) Acute kidney injury Current Visit: Yes Status: Acute Assessment and plan: 0.79/> 60 IVF hydration while patient is still on clear liquid diet. Renal function appears to have improved with gentle IV fluid hydration. Avoid nephrotoxins Continue to monitor labs (3) DVT prophylaxis Current Visit: Yes Status: Acute Assessment and plan: Heparin SQ (4) Diabetes mellitus Current Visit: Yes Status: Acute Assessment and plan: SSI, accuchecks achs, full liquid diet for now. Qualifiers: Diabetes mellitus type: type 2 Diabetes mellitus fdc insulin use: unspecified fdc insulin use status Diabetes mellitus complication status : without complication Qualified Code(s): E11.9 - Type 2 diabetes mellitus without complications (5) Leukocytosis Current Visit: Yes Status: Acute Assessment and plan: Resolved. Continue to monitor labs. Blood cultures pending, urine not indicative of UTI. Continue to trend labs Pt does not have fever, tachypnea, tachycardia, or hypotension. Continue IV antibiotics. Qualifiers: Leukocytosis type: unspecified Qualified Code(s): D72.829 - Elevated white blood cell count, unspecified (6) Transaminitis Current Visit: Yes Status: Acute Assessment and plan: Repeat labs ordered and pending. (7) Anemia Current Visit: Yes Status: Acute Assessment and plan: Hgb 10.2 No signs of bleeding, no hematuria on UA. Stool occult blood ordered, remains pending Has remained stable, follow and see PCP after discharge. Qualifiers: Anemia type: unspecified type Qualified Code(s): D64.9 - Anemia, unspecified - Time Spent With Patient Total time spent is greater than 50% in coordination of care (as documented) at patient's floor/unit and/or counseling patient: less than 15 minutes - Subjective Interval history: Pt was seen and assessed at bedside at 0915 a.m. Pt states that his pain has improved, abdomen less tender to palpation today. He denies headache, nausea, diarrhea, vomiting. Pt denies chest pain or SOB. He reports chronic BLE cellulitis that is tender to palpation, but has improved. He is alert, oriented mentatinon is better today and pt answers questions appropriately. Pt states that he lives at home with his step daughter and is planning to return there after discharge. - Constitutional Vitals: Temp Pulse Resp BP Pulse Ox 98.2 F 74 16 136/77 97 03/26/18 11:34 03/26/18 11:34 03/26/18 11:34 03/26/18 11:34 03/26/18 11:34 General appearance: Present: cooperative, A&O X 2, pleasant, no acute distress, answers questions appropriately - Head Head exam: Present: atraumatic, normal inspection, normocephalic - Eye Eye exam: Present: normal appearance, conjuntiva pink, sclera anicteric. Absent : nystagmus - Neck Neck exam general surgery: Present: supple, trachea midline. Absent: lymphadenopathy, tenderness - Respiratory Respiratory exam: Present: CTAB. Absent: accessory muscle use, decreased breath sounds, rales, respiratory distress, rhonchi, wheezes - Cardiovascular Cardiovascular exam: Present: RRR, +S1, +S2. Absent: diastolic murmur, gallop, rubs, systolic murmur - GI/Abdominal GI/Abdominal exam: Present: normal bowel sounds, soft. Absent: distended, hepatomegaly, tenderness - Extremities Exam Extremities exam: Present: normal capillary refill, normal inspection, warm, radial pulses palpable and symmetrical. Absent: calf tenderness, cyanotic, pedal edema, tenderness - Neurological Exam Neurological exam: Present: alert, oriented X3, no focal deficits. Absent: facial droop, speech deficit - Skin Skin exam: Present: dry, intact, normal color, warm. Absent: rash Internal Medicine: Result - Labs CBC & Chem 7: 03/26/18 05:12 03/26/18 05:12 Labs: Short CBC 03/26/18 Range/Units 05:12 WBC 10.6 (4.3-11.1) K/mcL Hgb 10.2 L (12.9-16.9) g/dL Hct 28.9 L (37.5-50.1) % Plt Count 156 (140-400) K/mcL Neutrophils # 7.6 (1.6-8.9) K/mcL BMP 03/26/18 05:12 Sodium 138 Potassium 3.4 L Chloride 107 Carbon Dioxide 23 BUN 23 Creatinine 0.79 Glucose 135 H Calcium 8.2 L - ABG Interpretation ABG results: PT/INR, D-dimer PT 13.1 Seconds (9.4-12.1) H 03/23/18 21:11 Consult Discharge Plan - Plan [facility]: [facility]Primary Care Provider[facility] -
[2018-03-26 14:10] LABS: Alanine Aminotransferase 113 Units/L (7-52); Amylase 20 Units/L (29-103); Aspartate Amino Transferase 34 Units/L (13-39); Lipase 19 Units/L (11-82)
[2018-03-27] MEDS: Aztreonam 1,000 MG in Water for inj. (sterile) 20 ML 10 ML IVP SCH ×4 (01:00→23:15)
[2018-03-27] MEDS: Insulin LISPRO 300 UNITS/3 ML VIAL SQ SCH ×4 (05:56→23:16)
[2018-03-27 06:59] LABS: Basophils # 0.1 K/mcL (0.0-0.2); Basophils % 0.6 %; Eosinophils # 0.4 K/mcL (0.0-0.6); Eosinophils % 4.4 %; Hematocrit 28.8 % (37.5-50.1); Hemoglobin 9.9 g/dL (12.9-16.9); Immature Granulocytes % 0.6 % (0-4); Lymphocytes # 1.9 K/mcL (0.6-4.6); Lymphocytes % 22.9 %; Mean Corpuscular HGB Conc 34.4 g/dL (31.6-35.5); Mean Corpuscular Hemoglobin 32.2 pg (28.0-33.3); Mean Corpuscular Volume 93.8 fL (83.0-100.0); Mean Platelet Volume 9.4 fL (9.4-12.4); Monocytes # 0.8 K/mcL (0.0-1.3); Monocytes % 9.7 %; Neutrophils # 5.1 K/mcL (1.6-8.9); Platelet Count 153 K/mcL (140-400); Red Blood Count 3.07 M/mcL (4.19-5.50); Red Cell Distribution Width 13.1 % (11.5-14.5); Segmented Neutrophils % 61.8 %
[2018-03-27 07:10] LABS: BUN/Creatinine Ratio 26 (6-26); Blood Urea Nitrogen 20 mg/dL (8-23); Calcium 8.1 mg/dL (8.6-10.3); Carbon Dioxide 24 mEq/L (23-29); Chloride 107 mEq/L (98-107); Glucose 142 mg/dL (70-105); Osmolality,Calculated 289 (280-300); Potassium 3.4 mEq/L (3.5-5.1); Sodium 137 mEq/L (136-145); eGFR For African Americans > 60 (> 60); eGFR For Non-African Americans > 60 (> 60)
[2018-03-27 09:58] LABS: % Iron Saturation 12 % (20-55); Iron 30 mcg/dL (65-175); Transferrin 184 mg/dL (203-362)
[2018-03-27 10:15] LABS: Ferritin 157 ng/mL (20-250)
[2018-03-27 10:22] LABS: Vitamin B12 722 pg/mL (250-1100)
[2018-03-27 10:25] LABS: Folate > 22.3 ng/mL (3.0-16.0)
[2018-03-27] MEDS ORDERED: *HR* OxyCODONE Oral Soln 5 MG/5 ML UD.LIQ PO PRN (13:31)
--- NOTE | 2018-03-27 15:17 | Internal Med Progress Note ---
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: unspecified [facility] insulin use status Diabetes mellitus complication status : without complication Qualified Code(s): E11.9 - Type 2 diabetes mellitus without complications (5) Leukocytosis Current Visit: Yes Status: Acute Qualifiers: Leukocytosis type: unspecified Qualified Code(s): D72.829 - Elevated white blood cell count, unspecified (6) Transaminitis Current Visit: Yes Status: Acute (7) Anemia Current Visit: Yes Status: Acute Qualifiers: Anemia type: unspecified type Qualified Code(s): D64.9 - Anemia, unspecified - Time Spent With Patient Total time spent is greater than 50% in coordination of care (as documented) at patient's floor/unit and/or counseling patient: - Subjective Interval history: Pt was seen and assessed at bedside at 0915 a.m. Pt states that his pain has improved, abdomen less tender to palpation today. He denies headache, nausea, diarrhea, vomiting. Pt denies chest pain or SOB. He reports chronic BLE cellulitis that is tender to palpation, but has improved. He is alert, oriented mentatinon is better today and pt answers questions appropriately. Pt states that he lives at home with his step daughter and is planning to return there after discharge. - Constitutional Vitals: Temp Pulse Resp BP Pulse Ox 97.7 F 65 18 131/74 97 03/27/18 10:56 03/27/18 10:56 03/27/18 10:56 03/27/18 10:56 03/27/18 10:56 General appearance: Present: cooperative, A&O X 2, pleasant, no acute distress, answers questions appropriately Internal Medicine: Result - Labs CBC & Chem 7: 03/27/18 06:17 03/27/18 06:17 Labs: Short CBC 03/27/18 Range/Units 06:17 WBC 8.3 (4.3-11.1) K/mcL Hgb 9.9 L (12.9-16.9) g/dL Hct 28.8 L (37.5-50.1) % Plt Count 153 (140-400) K/mcL Neutrophils # 5.1 (1.6-8.9) K/mcL BMP 03/27/18 06:17 Sodium 137 Potassium 3.4 L Chloride 107 Carbon Dioxide 24 BUN 20 Creatinine 0.77 Glucose 142 H Calcium 8.1 L - ABG Interpretation ABG results: PT/INR, D-dimer PT 13.1 Seconds (9.4-12.1) H 03/23/18 21:11 Consult Discharge Plan - Plan [facility]errals: [facility] [Primary Care Provider] -
--- NOTE | 2018-03-27 15:26 | General Surgery Consult Note ---
<Emerson Mello W - Last Filed: 03/27/18 17:50> Date of Encounter: 03/27/18 Time of Encounter: 15:21 Assessment and Plan (1) Gall stones Current Visit: Yes Status: Acute MRCP showed evidence of Cholelithiasis but no evidence of Cholecystitis noted no abdominal tenderness ERCP removed 10 stones Surgical intervention is recommended in the future but is not emergent Sister in law may have medical power of attorney lawyer we will attempt to contact her tomorrow for consent or to find the true medical power of attorney lawyer continue conservative management IVF hydration pain control as necessary will continue to follow (2) Gallstone pancreatitis Current Visit: Yes Status: Suspected Resolving amylase and lipase have normalized see above plan (3) Anemia Current Visit: Yes Status: Acute continue care per primary follow up with pcp Qualifiers: Anemia type: unspecified type Qualified Code(s): D64.9 - Anemia, unspecified History of Present Illness Reason for consult: gallstones Requesting physician: Lyssa Lance History of present illness: Mr. Urena is a 73 year old male with past medical history of COPD, diabetes, dementia, GERD presents to emergency room from [place] with plan of abdominal painon 03/22/18. The patient was found to have choledocholithiasis and pancreatitis from gallstones. Patient was treated for pancreatitis which has now resolved. On 03/24/18, patient had an ERCP with stent placement. Abdominal MRI showed cholelithiasis wth no evidence of cholecystitis. Currently the patient has no abdominal pain. Pt denies n/v/d. He cannot remember when his last bowel movement was last noted on 03/23. Patient has been passing gas. Patient is tolerating a liquid diet. Denies fever, chills or night sweats. Past Med Surg Social Fam HX - Past Medical History Medical history: COPD, DVT, dementia, diabetes, GERD, hyperlipidemia, hypertension, osteoporosis Additional medical history: anemia, neuropathy, PSA, Psychiatric history: other - Past Surgical History Additional surgical history: unknown surgical - Social History Smoking Status: Unknown if ever smoked Smokeless Tobacco Status: No Alcohol use: none Drug use: none Medications and Allergies Apixaban [Eliquis] 5 mg PO BID 03/23/18 [History] Aspirin [Lo-Dose Aspirin EC] 81 mg PO DAILY 03/23/18 [History] Atorvastatin Calcium [Lipitor] 40 mg PO HS 03/23/18 [History] Calcium Carbonate/Vitamin D3 [Calcium 250+D Tablet] 1 tab PO BID 03/23/18 [ History] Cholecalciferol (D-3) [Vitamin D] 2,000 unit PO DAILY 03/23/18 [History] Docusate [Colace] 100 mg PO BID PRN 03/23/18 [History] Ferrous Sulfate 325 mg PO BIDWM 03/23/18 [History] Furosemide [Lasix] 20 mg PO DAILY 03/23/18 [History] Gabapentin [Neurontin] 100 mg PO BID 03/23/18 [History] Insulin Glargine,Hum.rec.anlog [Basaglar Kwikpen U-100] 22 unit SQ HS 03/23/18 [ History] Melatonin/Pyridoxine HCl (B6) [Melatonin 3 mg Tablet] 3 tab PO HS 03/23/18 [ History] Metformin HCl 1,000 mg PO BID 03/23/18 [History] Multivitamin [One Daily Multivitamin] 1 tab PO DAILY 03/23/18 [History] Ranitidine HCl [Heartburn Relief] 150 mg PO BID 03/23/18 [History] Sennosides [Evac-U-Gen] 8.6 mg PO DAILY PRN 03/23/18 [History] 3 Allergy/AdvReac Type Severity Reaction Status Date / Time Amoxicillin Allergy See Verified 03/23/18 08:54 Comments clavulanic acid Allergy See Verified 03/23/18 08:54 Comments fluvastatin Allergy See Verified 03/23/18 08:54 Comments lovastatin Allergy See Verified 03/23/18 08:54 Comments niacin Allergy See Verified 03/23/18 08:54 Comments omeprazole Allergy See Verified 03/23/18 08:54 Comments simvastatin Allergy See Verified 03/23/18 08:54 Comments topiramate Allergy See Verified 03/23/18 08:54 Comments venlafaxine Allergy See Verified 03/23/18 08:54 Comments Review of Systems All systems PM: The remainder of the systems were reviewed and are negative - Constitutional as per HPI - Cardiovascular no chest pain, no dyspnea, no palpitations - Respiratory no cough, no dyspnea on exertion - Gastrointestinal change in bowel habits, no diarrhea, no vomiting - Neurological no vertigo, no weakness General Surgery Exam Initial Vital Signs Temp Pulse Resp BP Pulse Ox 98.1 F 98 20 136/88 95 03/22/18 21:57 03/22/18 21:57 03/22/18 21:57 03/22/18 21:57 03/22/18 21:57 - General physical appearance well developed, well nourished, no distress, no pain, obese, other (attention focused on TV) - Eyes PERRL, normal ocular movement - ENT atraumatic, normocephalic, CN 2-12 grossly intact - Neck no masses - Respiratory normal expansion, normal respiratory effort, clear to percussion, clear to auscultation - Cardiovascular Cardiovascular exam: Present: RRR, no murmurs/rubs/gallops - Abdomen Abdomen general surgery: Present: bowel sounds present, soft, tender (only with deep palpation) Abdominal Tenderness: Present: RUQ - Integumentary Integumentary general surgery: Present: other (b/l lower leg venous stasis demratitis) - Neurologic Present: CN 2-12 grossly intact, normal coordination, normal sensation - Musculoskeletal Present: normal posture - Psychiatric Psychiatric general surgery: Present: other (friendly but not oriented to time, oriented to person and place. poor historian and seemed disinterested in his hospital course. ) Exam Initial Vital Signs Temp Pulse Resp BP Pulse Ox 98.1 F 98 20 136/88 95 03/22/18 21:57 03/22/18 21:57 03/22/18 21:57 03/22/18 21:57 03/22/18 21:57 Results - Labs 03/27/18 06:17 03/27/18 06:17 Abnormal lab results RBC 3.07 M/mcL (4.19-5.50) L 03/27/18 06:17 Hgb 9.9 g/dL (12.9-16.9) L 03/27/18 06:17 Hct 28.8 % (37.5-50.1) L 03/27/18 06:17 PT 13.1 Seconds (9.4-12.1) H 03/23/18 21:11 Potassium 3.4 mEq/L (3.5-5.1) L 03/27/18 06:17 Glucose 142 mg/dL (70-105) H 03/27/18 06:17 POC Glucose 116 mg/dL (70-99) H 03/26/18 23:04 Hemoglobin A1c 7.1 % (-5.6) H 03/22/18 23:21 Calcium 8.1 mg/dL (8.6-10.3) L 03/27/18 06:17 Venous Ioniz Calcium 1.14 mmol/L (1.15-1.35) L 03/23/18 20:09 Phosphorus 2.3 mg/dL (2.7-4.5) L 03/23/18 00:13 Iron 30 mcg/dL (65-175) L 03/27/18 09:27 % Saturation 12 % (20-55) L 03/27/18 09:27 Transferrin 184 mg/dL (203-362) L 03/27/18 09:27 Total Bilirubin 1.8 mg/dL (0.3-1.0) H 03/23/18 00:13 ALT 113 Units/L (7-52) H 03/26/18 13:42 Alkaline Phosphatase 403 Units/L (34-104) H 03/23/18 00:13 Globulin 3.6 g/dL (2.4-3.5) H 03/23/18 00:13 Amylase 20 Units/L (29-103) L 03/26/18 13:42 Folate > 22.3 ng/mL (3.0-16.0) H 03/27/18 09:27 Urine Clarity Cloudy (Clear) A 03/23/18 02:50 Urine Protein 100 mg/dL (Neg-Trace) H 03/23/18 02:50 Ur Leukocyte Esterase Trace (Negative) H 03/23/18 02:50 Urine Microscopic WBC 5-15 per hpf (0-3) H 03/23/18 02:50 Ur Squamous Epith Cells Many per lpf (None-Few) H 03/23/18 02:50 Vancomycin Trough 22 mcg/mL (5-10) H 03/27/18 06:17 Diabetes panel 03/27/18 Range/Units 06:17 Sodium 137 (136-145) mEq/L Potassium 3.4 L (3.5-5.1) mEq/L Chloride 107 (98-107) mEq/L Carbon Dioxide 24 (23-29) mEq/L BUN 20 (8-23) mg/dL Creatinine 0.77 (0.70-1.30) mg/dL Glucose 142 H (70-105) mg/dL Calcium 8.1 L (8.6-10.3) mg/dL Calcium panel 03/27/18 Range/Units 06:17 Calcium 8.1 L (8.6-10.3) mg/dL Pituitary panel 03/27/18 Range/Units 06:17 Sodium 137 (136-145) mEq/L Potassium 3.4 L (3.5-5.1) mEq/L Chloride 107 (98-107) mEq/L Carbon Dioxide 24 (23-29) mEq/L BUN 20 (8-23) mg/dL Creatinine 0.77 (0.70-1.30) mg/dL Glucose 142 H (70-105) mg/dL Calcium 8.1 L (8.6-10.3) mg/dL Adrenal panel 03/27/18 Range/Units 06:17 Sodium 137 (136-145) mEq/L Potassium 3.4 L (3.5-5.1) mEq/L Chloride 107 (98-107) mEq/L Carbon Dioxide 24 (23-29) mEq/L BUN 20 (8-23) mg/dL Creatinine 0.77 (0.70-1.30) mg/dL Glucose 142 H (70-105) mg/dL Calcium 8.1 L (8.6-10.3) mg/dL All other labs normal. Consult Discharge Plan - Plan [facility]errals: [facility] [Primary Care Provider[facility] - <Brandi Womack - Last Filed: 03/28/18 08:28> Date of Encounter: 03/27/18 Assessment and Plan (1) Choledocholithiasis Current Visit: Yes Status: Acute s/p ERCP, stone extraction x 1o, stent placement (2) Gallstone pancreatitis Current Visit: Yes Status: Suspected no amylase and lipase ordered this hospital stay, will check in am would like to plan laparoscopic cholecystectomy in next 24 to 48 hrs need to establish who patient lives with and if he someone has medical power of attorney lawyer, if not need competency eval History of Present Illness Consult date: 03/27/18 History of present illness: Patient is confused and essentially unable to relay any reliable history. States he was told by the nurses to come to the hospital but cannot tell me who those nurses were. He denies abdominal pain, nausea , vomiting, diarrhea, jaundice, fevers, chills night sweats. States he has not had any imaging or procedures done during this hospital stay despite his mrcp and ERCP States year is 1995 and Laith is president Past Med Surg Social Fam HX - Past Medical History Source: old records reviewed Review of Systems All systems PM: The remainder of the systems were reviewed and are negative General Surgery Exam Initial Vital Signs Temp Pulse Resp BP Pulse Ox 98.1 F 98 20 136/88 95 03/22/18 21:57 03/22/18 21:57 03/22/18 21:57 03/22/18 21:57 03/22/18 21:57 - General physical appearance no distress - Eyes PERRL, normal ocular movement - ENT normal mucosa - Neck trachea midline - Respiratory normal expansion - Cardiovascular Cardiovascular exam: Present: RRR - Abdomen Abdomen general surgery: Present: soft, non tender. Absent: distended, tender - Integumentary Integumentary general surgery: Present: warm and dry, other (b/l lower leg venous stasis dermatitis) - Neurologic Present: CN 2-12 grossly intact - Musculoskeletal Present: normal posture - Psychiatric Psychiatric general surgery: Present: other Exam Initial Vital Signs Temp Pulse Resp BP Pulse Ox 98.1 F 98 20 136/88 95 03/22/18 21:57 03/22/18 21:57 03/22/18 21:57 03/22/18 21:57 03/22/18 21:57 Results - Labs 03/28/18 03:25 03/28/18 03:25 Abnormal lab results RBC 3.00 M/mcL (4.19-5.50) L 03/28/18 03:25 Hgb 10.0 g/dL (12.9-16.9) L 03/28/18 03:25 Hct 28.0 % (37.5-50.1) L 03/28/18 03:25 MCHC 35.7 g/dL (31.6-35.5) H 03/28/18 03:25 PT 13.1 Seconds (9.4-12.1) H 03/23/18 21:11 Sodium 133 mEq/L (136-145) L 03/28/18 03:25 Carbon Dioxide 19 mEq/L (23-29) L 03/28/18 03:25 POC Glucose 337 mg/dL (70-99) H 03/27/18 17:26 Hemoglobin A1c 7.1 % (-5.6) H 03/22/18 23:21 Calculated Osmolality 278 (280-300) L 03/28/18 03:25 Calcium 8.5 mg/dL (8.6-10.3) L 03/28/18 03:25 Venous Ioniz Calcium 1.14 mmol/L (1.15-1.35) L 03/23/18 20:09 Phosphorus 2.3 mg/dL (2.7-4.5) L 03/23/18 00:13 Iron 30 mcg/dL (65-175) L 03/27/18 09:27 % Saturation 12 % (20-55) L 03/27/18 09:27 Transferrin 184 mg/dL (203-362) L 03/27/18 09:27 Total Bilirubin 1.8 mg/dL (0.3-1.0) H 03/23/18 00:13 ALT 113 Units/L (7-52) H 03/26/18 13:42 Alkaline Phosphatase 403 Units/L (34-104) H 03/23/18 00:13 Globulin 3.6 g/dL (2.4-3.5) H 03/23/18 00:13 Amylase 20 Units/L (29-103) L 03/26/18 13:42 Folate > 22.3 ng/mL (3.0-16.0) H 03/27/18 09:27 Urine Clarity Cloudy (Clear) A 03/23/18 02:50 Urine Protein 100 mg/dL (Neg-Trace) H 03/23/18 02:50 Ur Leukocyte Esterase Trace (Negative) H 03/23/18 02:50 Urine Microscopic WBC 5-15 per hpf (0-3) H 03/23/18 02:50 Ur Squamous Epith Cells Many per lpf (None-Few) H 03/23/18 02:50 Vancomycin Trough 22 mcg/mL (5-10) H 03/27/18 06:17 Diabetes panel 03/28/18 Range/Units 03:25 Sodium 133 L (136-145) mEq/L Potassium 3.5 (3.5-5.1) mEq/L Chloride 105 (98-107) mEq/L Carbon Dioxide 19 L (23-29) mEq/L BUN 18 (8-23) mg/dL Creatinine 0.77 (0.70-1.30) mg/dL Glucose 97 (70-105) mg/dL Calcium 8.5 L (8.6-10.3) mg/dL Calcium panel 03/28/18 Range/Units 03:25 Calcium 8.5 L (8.6-10.3) mg/dL Pituitary panel 03/28/18 Range/Units 03:25 Sodium 133 L (136-145) mEq/L Potassium 3.5 (3.5-5.1) mEq/L Chloride 105 (98-107) mEq/L Carbon Dioxide 19 L (23-29) mEq/L BUN 18 (8-23) mg/dL Creatinine 0.77 (0.70-1.30) mg/dL Glucose 97 (70-105) mg/dL Calcium 8.5 L (8.6-10.3) mg/dL Adrenal panel 03/28/18 Range/Units 03:25 Sodium 133 L (136-145) mEq/L Potassium 3.5 (3.5-5.1) mEq/L Chloride 105 (98-107) mEq/L Carbon Dioxide 19 L (23-29) mEq/L BUN 18 (8-23) mg/dL Creatinine 0.77 (0.70-1.30) mg/dL Glucose 97 (70-105) mg/dL Calcium 8.5 L (8.6-10.3) mg/dL All other labs normal. - Imaging Additional studies: MRI and ercp reports reviewed - Attending Attestation I examined this patient and my medical decision-making was reviewed with the Resident Physician. I agree with the documented findings, disposition and treatment plan as described except to the extent set forth below.
[2018-03-27] MEDS: Aspirin Enteric Coated 81 MG Tablet PO SCH (17:32)
[2018-03-27] MEDS: *HR* Metformin 500 MG TABLET PO SCH (17:32)
--- NOTE | 2018-03-27 19:11 | Internal Med Progress Note ---
Date of Encounter: 03/27/18 Time of Encounter: 09:25 - Assessment and plan (1) Acute pancreatitis Current Visit: Yes Status: Acute Assessment and plan: Repeated amylase, lipase, transaminases, all have decreased and ALT remains elevated but improved. Pt continues to deny nausea and reports that pain is better. ERCP 03/25 total of approximately 10 stones, 4-6 mm in size, removed. Patient has a 10-Romansh by 9 cm temporary stent that was placed 8 cm in the common bile duct. Patient will have ERCP for stent removal in 2 months. IVF hydration, pain control Advance to regular diet. 03/27/18- Received call from GI that pt should have cholecystectomy and to call surgery. Surgery evaluated pt today and state that it is not emergent. Will follow pt. He can probably be discharged tomorrow. Qualifiers: Pancreatitis type: unspecified pancreatitis type Acute pancreatitis complication: unspecified Qualified Code(s): K85.90 - Acute pancreatitis without necrosis or infection, unspecified (2) Acute kidney injury Current Visit: Yes Status: Acute Assessment and plan: 0.77/> 60 Renal function appears to have improved with gentle IV fluid hydration. Avoid nephrotoxins Continue to monitor labs (3) DVT prophylaxis Current Visit: Yes Status: Acute Assessment and plan: Heparin SQ (4) Diabetes mellitus Current Visit: Yes Status: Acute Assessment and plan: SSI, accuchecks achs, diabetic/regular diet. 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 Qualifiers: Leukocytosis type: unspecified Qualified Code(s): D72.829 - Elevated white blood cell count, unspecified (6) Transaminitis Current Visit: Yes Status: Acute Assessment and plan: Improving. (7) Anemia Current Visit: Yes Status: Acute Assessment and plan: Hgb 9.9 No signs of bleeding, no hematuria on UA. Stool occult blood ordered, remains pending Has remained stable, follow and see PCP after discharge. Patient with known iron deficiency anemia. Ferrous sulfate continued from home. Qualifiers: Anemia type: unspecified type Qualified Code(s): D64.9 - Anemia, unspecified - Time Spent With Patient Total time spent is greater than 50% in coordination of care (as documented) at patient's floor/unit and/or counseling patient: less than 15 minutes - Subjective Interval history: Pt was seen and assessed at bedside at 0925 a.m. Pt states that his pain has improved, abdomen less tender to palpation today. He denies headache, nausea, diarrhea, vomiting. Pt denies chest pain or SOB. He reports chronic BLE cellulitis that is tender to palpation, but has improved. He is alert, oriented mentatinon is better today and pt answers questions appropriately. Pt states that he lives at home with his step daughter and is planning to return there after discharge. Pt is more alert and interactive than he has been since I have seen him. - Constitutional Vitals: Temp Pulse Resp BP Pulse Ox 99.8 F H 60 16 138/62 99 03/27/18 15:32 03/27/18 15:32 03/27/18 15:32 03/27/18 15:32 03/27/18 15:32 General appearance: Present: cooperative, A&O X 2, pleasant, no acute distress, answers questions appropriately - Head Head exam: Present: atraumatic, normal inspection, normocephalic - Eye Eye exam: Present: normal appearance, conjuntiva pink, sclera anicteric - Neck Neck exam general surgery: Present: supple, trachea midline. Absent: lymphadenopathy, tenderness - Respiratory Respiratory exam: Present: decreased breath sounds, CTAB. Absent: accessory muscle use, chest wall tenderness, rales, respiratory distress, rhonchi, wheezes - Cardiovascular Cardiovascular exam: Present: RRR, +S1, +S2. Absent: diastolic murmur, gallop, rubs, systolic murmur - GI/Abdominal GI/Abdominal exam: Present: distended, normal bowel sounds, soft. Absent: hepatomegaly, tenderness - Extremities Exam Extremities exam: Present: normal capillary refill, normal inspection, warm, radial pulses palpable and symmetrical. Absent: calf tenderness, cyanotic, pedal edema, tenderness - Neurological Exam Neurological exam: Present: alert, oriented X3, no focal deficits. Absent: facial droop, speech deficit - Skin Skin exam: Present: dry, intact, normal color, warm. Absent: rash Internal Medicine: Result - Labs CBC & Chem 7: 03/27/18 06:17 03/27/18 06:17 Labs: Short CBC 03/27/18 Range/Units 06:17 WBC 8.3 (4.3-11.1) K/mcL Hgb 9.9 L (12.9-16.9) g/dL Hct 28.8 L (37.5-50.1) % Plt Count 153 (140-400) K/mcL Neutrophils # 5.1 (1.6-8.9) K/mcL BMP 03/27/18 06:17 Sodium 137 Potassium 3.4 L Chloride 107 Carbon Dioxide 24 BUN 20 Creatinine 0.77 Glucose 142 H Calcium 8.1 L - ABG Interpretation ABG results: PT/INR, D-dimer PT 13.1 Seconds (9.4-12.1) H 03/23/18 21:11 Consult Discharge Plan - Plan [facility] Provider[facility] -
[2018-03-27] MEDS: Gabapentin 100 MG CAPSULE PO SCH (20:05)
[2018-03-27] MEDS ORDERED: Apixaban 5 MG TABLET PO SCH (21:00)
[2018-03-28 05:07] LABS: Basophils % 0.5 %; Eosinophils # 0.4 K/mcL (0.0-0.6); Eosinophils % 4.6 %; Immature Granulocytes % 0.7 % (0-4); Mean Corpuscular HGB Conc 35.7 g/dL (31.6-35.5); Mean Corpuscular Hemoglobin 33.3 pg (28.0-33.3); Mean Corpuscular Volume 93.3 fL (83.0-100.0); Mean Platelet Volume 9.7 fL (9.4-12.4); Monocytes # 0.9 K/mcL (0.0-1.3); Monocytes % 11.1 %; Neutrophils # 4.7 K/mcL (1.6-8.9); Platelet Count 161 K/mcL (140-400); Segmented Neutrophils % 58.1 %
[2018-03-28 05:32] LABS: BUN/Creatinine Ratio 23 (6-26); Blood Urea Nitrogen 18 mg/dL (8-23); Calcium 8.5 mg/dL (8.6-10.3); Carbon Dioxide 19 mEq/L (23-29); Chloride 105 mEq/L (98-107); Glucose 97 mg/dL (70-105); Osmolality,Calculated 278 (280-300); Potassium 3.5 mEq/L (3.5-5.1); Sodium 133 mEq/L (136-145); eGFR For African Americans > 60 (> 60); eGFR For Non-African Americans > 60 (> 60)
--- NOTE | 2018-03-28 08:07 | Event Note ---
Date of Encounter: 03/28/18 Time of Encounter: 08:04 Discussed patients POC with Dr. Womack this morning. Plan is to recheck liver function and lipase. If normal patient okay to discharge home. Resume eliquis at this time. Patient to follow-up with Dr. Womack in 1-2 weeks to discuss elective cholecystectomy.
[2018-03-28 08:31] LABS: Albumin 2.9 g/dL (3.5-5.7); Albumin/Globulin Ratio 0.9 (1.1-2.2); Bilirubin,Direct 0.1 mg/dL (0.0-0.2); Bilirubin,Indirect 0.4 mg/dL (0.0-1.2); Bilirubin,Total 0.5 mg/dL (0.3-1.0); Globulin 3.1 g/dL (2.4-3.5)
[2018-03-28] MEDS ORDERED: Apixaban 5 MG TABLET PO SCH (09:00)
[2018-03-28] MEDS ORDERED: Multivit/Ca/Min/Fe/FA 1 TAB TABLET PO SCH (09:00)
[2018-03-28] MEDS ORDERED: Cholecalciferol (D-3) 1,000 UNIT TABLET PO SCH (09:00)
--- NOTE | 2018-03-28 10:22 | Discharge Summary ---
- NOTES TO OUTPATIENT PROVIDER Notes to Outpatient Provider: Admitted for gallstone pancreatitis. Approximately 10 stones, 4-6cm in size removed. Received a temporary stent in the CBD; to be removed in 2-months MRCP with evidence of cholecystitis. To f/ u with Dr. Womack, in 1-2 weeks to schedule elective cholecystectomy. Clinically improving, liver enzymes trending down, lipase 20 on day of d/c. No studies pending Orders not resulted at time of discharge: Pending orders 03/27/18 07:34 Occult Blood,Stool [BF] Stat Date of Encounter: 03/28/18 Time of Encounter: 10:19 - Discharge Diagnosis (1) Acute pancreatitis Priority: Primary Status: Acute Assessment and Plan: Repeated amylase, lipase, transaminases, all have decreased and ALT remains elevated but improved. Pt continues to deny nausea and reports that pain is better. ERCP 03/25 total of approximately 10 stones, 4-6 mm in size, removed. Patient has a 10-Ugandan by 9 cm temporary stent that was placed 8 cm in the common bile duct. Patient will have ERCP for stent removal in 2 months. IVF hydration, pain control Advance to regular diet. 03/27/18- Received call from GI that pt should have cholecystectomy and to call surgery. Surgery evaluated pt today and state that it is not emergent. Will follow pt. He can probably be discharged tomorrow. Qualifiers: Pancreatitis type: unspecified pancreatitis type Acute pancreatitis complication: unspecified Qualified Code(s): K85.90 - Acute pancreatitis without necrosis or infection, unspecified (2) Leukocytosis Priority: Secondary Status: Acute Assessment and Plan: Resolved. Qualifiers: Leukocytosis type: unspecified Qualified Code(s): D72.829 - Elevated white blood cell count, unspecified (3) Acute kidney injury Priority: Secondary Status: Acute Assessment and Plan: 0.77/> 60 Renal function appears to have improved with gentle IV fluid hydration. Avoid nephrotoxins Continue to monitor labs (4) Diabetes mellitus Priority: Secondary Status: Acute Assessment and Plan: SSI, accuchecks achs, diabetic/regular diet. 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 (6) Anemia Priority: Secondary Status: Acute Assessment and Plan: Hgb 9.9 No signs of bleeding, no hematuria on UA. Stool occult blood ordered, remains pending Has remained stable, follow and see PCP after discharge. Patient with known iron deficiency anemia. Ferrous sulfate continued from home. Qualifiers: Anemia type: unspecified type Qualified Code(s): D64.9 - Anemia, unspecified (7) DVT prophylaxis Priority: Secondary Status: Acute Hospital course: Mr. Urena is a 73 year old male admitted with abdominal pain. Also found to have elevated amylase, lipase, transaminitis as well as cholecystitis. Gallstone pancreatitis. ERCP 03/25 with removal of approximately 10 stones ranging in 4-6 mm in size. Patient had a 10-Ugandan by 9 cm temporary stent placed 8 cm in the CBD. To have follow-up ERCP for stent removal in 2 months. Abdominal pain improved throughout the stay. Transaminase returning to normal day of discharge. Lipase 20. We will need to follow up with Dr. Womack outpatient to schedule elective cholecystectomy. No pending studies or diagnostic studies at time of discharge. Was found to have cellulitis of BLE, wound cultures growing staph warneri with (S) to bactrim DS. He is being discharged on a 10-day course of Bactrim DS. Uneventful hospital course. Remains hemodynamically stable. Continuing to improve clinically daily. Instructed to follow-up with PCP within 1 week of discharge to discuss pancreatitis, so cholecystitis and bilateral lower extremity cellulitis. Also, instructed to return to the ED should he develop abdominal pain, fever, chills, rigors, vomiting. Patient verbalizes understanding denies any further questions at this time. Discharge discussed with: patient, family - Time Spent with Patient Total time spent providing and/or coordinating discharge services: Less than 30 minutes - Discharge Medications Prescriptions: Ondansetron ODT [Zofran ODT] 4 mg SL Q8HR 30 Days #90 tab.rapdis Sulfamethoxazole/Trimeth DS [Bactrim DS] 1 each PO BID 10 Days #20 tablet Home Medications: Apixaban [Eliquis] 5 mg PO BID 03/23/18 [History] Aspirin [Lo-Dose Aspirin EC] 81 mg PO DAILY 03/23/18 [History] Atorvastatin Calcium [Lipitor] 40 mg PO HS 03/23/18 [History] Calcium Carbonate/Vitamin D3 [Calcium 250+D Tablet] 1 tab PO BID 03/23/18 [ History] Cholecalciferol (D-3) [Vitamin D] 2,000 unit PO DAILY 03/23/18 [History] Docusate [Colace] 100 mg PO BID PRN 03/23/18 [History] Ferrous Sulfate 325 mg PO BIDWM 03/23/18 [History] Furosemide [Lasix] 20 mg PO DAILY 03/23/18 [History] Gabapentin [Neurontin] 100 mg PO BID 03/23/18 [History] Insulin Glargine,Hum.rec.anlog [Basaglar Kwikpen U-100] 22 unit SQ HS 03/23/18 [ History] Melatonin/Pyridoxine HCl (B6) [Melatonin 3 mg Tablet] 3 tab PO HS 03/23/18 [ History] Metformin HCl 1,000 mg PO BID 03/23/18 [History] Multivitamin [One Daily Multivitamin] 1 tab PO DAILY 03/23/18 [History] Ranitidine HCl [Heartburn Relief] 150 mg PO BID 03/23/18 [History] Sennosides [Evac-U-Gen] 8.6 mg PO DAILY PRN 03/23/18 [History] Ondansetron ODT [Zofran ODT] 4 mg SL Q8HR 30 Days #90 tab.rapdis 03/28/18 [Rx] Sulfamethoxazole/Trimeth DS [Bactrim DS] 1 each PO BID 10 Days #20 tablet [Rx] Allergies/Adverse Reactions: 3 Allergy/AdvReac Type Severity Reaction Status Date / Time Amoxicillin Allergy See Verified 03/23/18 08:54 Comments clavulanic acid Allergy See Verified 03/23/18 08:54 Comments fluvastatin Allergy See Verified 03/23/18 08:54 Comments lovastatin Allergy See Verified 03/23/18 08:54 Comments niacin Allergy See Verified 03/23/18 08:54 Comments omeprazole Allergy See Verified 03/23/18 08:54 Comments simvastatin Allergy See Verified 03/23/18 08:54 Comments topiramate Allergy See Verified 03/23/18 08:54 Comments venlafaxine Allergy See Verified 03/23/18 08:54 Comments Date of admission: 03/23/18 00:30 Primary care physician: PCP [place] Consults: 03/23/18 11:06 Consult to Gastroenterology [CONS] Routine Consulting Provider: [facility] Reason for Consult: MRCP ordered for possible choledocholithiasis, 1 cm dilation on ultrasound. abd tender, reports abd pain. Lipase elevated, transaminitis. Time Notified: 11:09 Call Completed: Yes 03/25/18 15:25 Consult to Physical Therapy [CONS] Routine Comment: Evaluate, develop and implement POC Reason for Consult: weakness, lives at home with family. May not be able to care for patient. Does patient have active BEDREST order?: No Is patient medically & hemodynamically stable?: Yes 03/27/18 15:03 Consult to Surgery [CONS] Routine Consulting Provider: [facility] Reason for Consult: ERCP Tuesday, today GI recommends cholecystectomy Time Notified: 09:25 Call Completed: Yes Discharging clinician: Krishna Rosado Anticipated date of discharge: 03/28/18 - Constitutional Vitals: Temp Pulse Resp BP Pulse Ox 98.2 F 74 18 114/65 98 03/28/18 06:47 03/28/18 06:47 03/28/18 06:47 03/28/18 06:47 03/28/18 06:47 General appearance: Present: cooperative, A&O X 2, pleasant, no acute distress, answers questions appropriately - Head Head exam: Present: atraumatic, normocephalic - Eye Eye exam: Present: PERRL, conjuntiva pink, sclera anicteric Pupils: Present: PERRL - Neck Neck exam general surgery: Present: supple, trachea midline. Absent: lymphadenopathy - Respiratory Respiratory exam: Present: CTAB. Absent: accessory muscle use, rales, rhonchi, wheezes - Cardiovascular Cardiovascular exam: Present: RRR, +S1, +S2. Absent: diastolic murmur, gallop, rubs, systolic murmur - GI/Abdominal GI/Abdominal exam: Present: normal bowel sounds, soft, no peritoneal signs. Absent: distended, tenderness - Extremities Exam Extremities exam: Present: warm, radial pulses palpable and symmetrical. Absent : calf tenderness, cyanotic, pedal edema - Expanded Lower Extremities Exam Lower Leg exam: Present: erythema, swelling (Bilateral extremity cellulitis), tenderness - Neurological Exam Neurological exam: Present: CN II-XII intact, oriented X3, no focal deficits. Absent: pronater drift, facial droop, speech deficit - Skin Skin exam: Present: dry, intact - Patient Status Disposition: Home, Self-Care Condition: Fair Overall status at discharge: patient is progressing back to baseline - Discharge Instructions Instructions: Pancreatitis (DC), Diabetes Mellitus Type 2 in Adults (DC), Anemia (GEN) Follow Up With: Brandi Womack MD [Partnered Physician] - 04/06/18 8:55 am [facility] - ([facility] and [facility] will be setting you an appointment up soon with your provider. ) - Diet and Activity Activity: increase activity as tolerated, resume usual activities as tolerated Diet: advance to your usual diet
[2018-03-28] MEDS: Aztreonam 1,000 MG in Water for inj. (sterile) 20 ML 10 ML IVP SCH ×2 (10:59→16:50)
[2018-03-28] MEDS: *HR* Metformin 500 MG TABLET PO SCH ×2 (11:02→17:09)
[2018-03-28] MEDS: Aspirin Enteric Coated 81 MG Tablet PO SCH (11:07)
[2018-03-28] MEDS: Gabapentin 100 MG CAPSULE PO SCH (11:08)
[2018-03-28] MEDS: Insulin LISPRO 300 UNITS/3 ML VIAL SQ SCH ×2 (12:45→18:59)
[2018-03-28 16:03] VITALS: BP 128/79
--- NOTE | 2018-03-28 18:25 | Physician Discharge Referral ---
Home Health/Hosp Referral Info Transfer to: Home Health Provider in Charge Post Discharge: PCP - Diagnosis (1) Acute pancreatitis Priority: Primary Status: Acute (2) Leukocytosis Priority: Secondary Status: Acute (3) Acute kidney injury Priority: Secondary Status: Acute (4) Diabetes mellitus Priority: Secondary Status: Acute (5) Transaminitis Priority: Secondary Status: Acute (6) Anemia Priority: Secondary Status: Acute (7) DVT prophylaxis Priority: Secondary Status: Acute - Respiratory Orders Smoking Cessation: Smoking cessation has been advised. For more information, call the [place] [employer] Quit Line at 7-388-OHMT-NOW. - Diet/Nutrition Diet/Nutrition Orders: Cardiac - Activity Activity Orders: Ambulate - Services Needed Following services are medically necessary services: Nursing, Home Health Aide - Transfer Medications Prescriptions: Ondansetron ODT [Zofran ODT] 4 mg SL Q8HR 30 Days #90 tab.rapdis Sulfamethoxazole/Trimeth DS [Bactrim DS] 1 each PO BID 10 Days #20 tablet Home Medications: Apixaban [Eliquis] 5 mg PO BID 03/23/18 [History] Aspirin [Lo-Dose Aspirin EC] 81 mg PO DAILY 03/23/18 [History] Atorvastatin Calcium [Lipitor] 40 mg PO HS 03/23/18 [History] Calcium Carbonate/Vitamin D3 [Calcium 250+D Tablet] 1 tab PO BID 03/23/18 [ History] Cholecalciferol (D-3) [Vitamin D] 2,000 unit PO DAILY 03/23/18 [History] Docusate [Colace] 100 mg PO BID PRN 03/23/18 [History] Ferrous Sulfate 325 mg PO BIDWM 03/23/18 [History] Furosemide [Lasix] 20 mg PO DAILY 03/23/18 [History] Gabapentin [Neurontin] 100 mg PO BID 03/23/18 [History] Insulin Glargine,Hum.rec.anlog [Basaglar Kwikpen U-100] 22 unit SQ HS 03/23/18 [ History] Melatonin/Pyridoxine HCl (B6) [Melatonin 3 mg Tablet] 3 tab PO HS 03/23/18 [ History] Metformin HCl 1,000 mg PO BID 03/23/18 [History] Multivitamin [One Daily Multivitamin] 1 tab PO DAILY 03/23/18 [History] Ranitidine HCl [Heartburn Relief] 150 mg PO BID 03/23/18 [History] Sennosides [Evac-U-Gen] 8.6 mg PO DAILY PRN 03/23/18 [History] Ondansetron ODT [Zofran ODT] 4 mg SL Q8HR 30 Days #90 tab.rapdis 03/28/18 [Rx] Sulfamethoxazole/Trimeth DS [Bactrim DS] 1 each PO BID 10 Days #20 tablet [Rx] Allergies/Adverse Reactions: 3 Allergy/AdvReac Type Severity Reaction Status Date / Time Amoxicillin Allergy See Verified 03/23/18 08:54 Comments clavulanic acid Allergy See Verified 03/23/18 08:54 Comments fluvastatin Allergy See Verified 03/23/18 08:54 Comments lovastatin Allergy See Verified 03/23/18 08:54 Comments niacin Allergy See Verified 03/23/18 08:54 Comments omeprazole Allergy See Verified 03/23/18 08:54 Comments simvastatin Allergy See Verified 03/23/18 08:54 Comments topiramate Allergy See Verified 03/23/18 08:54 Comments venlafaxine Allergy See Verified 03/23/18 08:54 Comments Certification: Further, I certify that my clinical findings support that this patient is homebound (i.e. absences from home require considerable and taxing effort and are for medical reasons or cheondoism services or infrequently or short duration when for other reasons) because: Homebound Reason: Patient requires assistance of a person or device to safely leave home Attestation: My signature below is to certify that this patient is under my care and that I, or nurse practitioner, or a physician's home care assistant working with me, has a face-to -face encounter with this patient.
[2018-03-28] MEDS ORDERED: Aminoglycoside Consult 1 EACH MC ONE (19:09)
== END 2018-03-28 19:10 | disposition home or self-care (01) | DRG 444 ==
LOC: EMEROO 21:44 → 3BNU 21:44
PROVIDERS: ADMIT Internal Medicine; ATTEND Internal Medicine

== ENCOUNTER 2018-06-12 09:00 | Inpatient (IN) ==
[2018-06-12] MEDS ORDERED: Albuterol 2.5 MG/3 ML NEBULIZER IH ONE (09:26)
[2018-06-12] MEDS ORDERED: Acetaminophen IV 1,000 MG/100 ML INFUS..BTL IVPB ONE (09:30)
[2018-06-12] MEDS ORDERED: Ringers Solution, Lactated 1,000 ML IVC SCH (09:30)
[2018-06-12] MEDS ORDERED: Famotidine 20 MG/2 ML VIAL IVP ONE (09:30)
--- NOTE | 2018-06-12 10:02 | Anesthesia Evaluation PreOp ---
Date of Encounter: 06/12/18 Time of Encounter: 10:00 - Past History Planned Operation: Lap Cholecystectomy Cardiac History: HTN, Hyperlipidemia, Other (Hx DVT on Eliquis) Pulmonary History: Former smoker, COPD PRINT MANAGER History: Denies Any Significant HX Other Medical History: Diabetes Type II Anesthesia History: No Prior Anesthetic Complications Alcohol Use: none Drug use: none Medications and Allergies Apixaban [Eliquis] 5 mg PO BID 03/23/18 [History] Aspirin [Lo-Dose Aspirin EC] 81 mg PO DAILY 03/23/18 [History] Atorvastatin Calcium [Lipitor] 40 mg PO HS 03/23/18 [History] Calcium Carbonate/Vitamin D3 [Calcium 250+D Tablet] 1 tab PO BID 03/23/18 [ History] Cholecalciferol (D-3) [Vitamin D] 2,000 unit PO DAILY 03/23/18 [History] Docusate [Colace] 100 mg PO BID PRN 03/23/18 [History] Ferrous Sulfate 325 mg PO BIDWM 03/23/18 [History] Furosemide [Lasix] 20 mg PO DAILY 03/23/18 [History] Gabapentin [Neurontin] 100 mg PO BID 03/23/18 [History] Insulin Glargine,Hum.rec.anlog [Basaglar Kwikpen U-100] 22 unit SQ HS 03/23/18 [ History] Melatonin/Pyridoxine HCl (B6) [Melatonin 3 mg Tablet] 3 tab PO HS 03/23/18 [ History] Metformin HCl 1,000 mg PO BID 03/23/18 [History] Multivitamin [One Daily Multivitamin] 1 tab PO DAILY 03/23/18 [History] Ranitidine HCl [Heartburn Relief] 150 mg PO BID 03/23/18 [History] Sennosides [Evac-U-Gen] 8.6 mg PO DAILY PRN 03/23/18 [History] Ondansetron ODT [Zofran ODT] 4 mg SL Q8HR 30 Days #90 tab.rapdis 03/28/18 [Rx] Sulfamethoxazole/Trimeth DS [Bactrim DS] 1 each PO BID 10 Days #20 tablet [Rx] 3 Allergy/AdvReac Type Severity Reaction Status Date / Time Amoxicillin Allergy See Verified 03/23/18 08:54 Comments clavulanic acid Allergy See Verified 03/23/18 08:54 Comments fluvastatin Allergy See Verified 03/23/18 08:54 Comments lovastatin Allergy See Verified 03/23/18 08:54 Comments niacin Allergy See Verified 03/23/18 08:54 Comments omeprazole Allergy See Verified 03/23/18 08:54 Comments simvastatin Allergy See Verified 03/23/18 08:54 Comments topiramate Allergy See Verified 03/23/18 08:54 Comments venlafaxine Allergy See Verified 03/23/18 08:54 Comments - Meds/Allergy Pre-op Review Medications Reviewed: Yes Allergies Reviewed: Yes Beta Blockers on Current Med List: No Anesthesia Results - Labs Laboratory Tests 03/28/18 06/06/18 06/06/18 03:25 13:00 13:00 Hgb Hct Plt Count PT 13.5 H INR 1.2 APTT 45.7 H Sodium 133 L Potassium 4.4 BUN 18 Creatinine 1.11 06/06/18 13:00 Hgb 9.6 L Hct 28.8 L Plt Count 188 PT INR APTT Sodium Potassium BUN Creatinine - Imaging EKG: report reviewed (SB Intraventricular Delay) Anesthesia Exam O2 Sat Height 1.65 m Height 1.65 m Height 1.65 m Weight 96.162 kg Weight 96.162 kg Weight 96.162 kg O2 Sat by Pulse Oximetry 98 Vital Signs Temp Pulse Resp BP Pulse Ox 97.6 F 83 18 110/52 98 06/12/18 09:35 06/12/18 09:35 06/12/18 09:35 06/12/18 09:35 06/12/18 09:35 Height: 5'5 Weight: 212 lbs NPO (# of Hours): MN Pain Scale: 0 - HEENT Pupil (Motor): Pupils equal, EOMI Mallampati: II Oral Opening: Greater than 3 - PRINT MANAGER LOC: Oriented PRINT MANAGER Motor: Normal RUE, Normal LUE, Normal RLE, Normal LLE, Normal Face PRINT MANAGER Sensory: Normal: RUE, LUE, RLE, LLE, Face - Cardiac Rhythm: Regular Murmur: None JVD: No Carotid Bruit: No - Pulmonary Breath Sounds: bilateral Clear Respiratory Effort: Symmetrical Anesthesia Assess/Plan ASA Score: 3 (HTN DVT DM COPD) Modified Kaylynn Scale for Level of Consciousness: Cooperative, oriented, and tranquil Anesthetic Plan: General Monitoring Plan: Standard Monitors Recovery Plan: PACU (Discussed GA, agrees to proceed)
[2018-06-12] MEDS ORDERED: Isovue-300 50 ML VIAL IVP ONE (10:22)
[2018-06-12] MEDS ORDERED: Neostigmine Methylsulfate 3 MG/3 ML SYRINGE ONE (10:54)
[2018-06-12] MEDS ORDERED: Ketorolac 30 MG/ML VIAL ONE (10:54)
[2018-06-12] MEDS ORDERED: Dexamethasone 4 MG/ML VIAL ONE (10:54)
[2018-06-12] MEDS ORDERED: *HR* Midazolam HCl 2 MG/2 ML VIAL ONE (10:54)
[2018-06-12] MEDS ORDERED: *HR* Propofol 200 MG/20 ML VIAL IVP ONE (10:54)
[2018-06-12] MEDS ORDERED: *HR* FentaNYL (PF) 100 MCG/2 ML VIAL ONE (10:54)
[2018-06-12] MEDS ORDERED: Ondansetron 4 MG/2 ML VIAL ONE (10:54)
[2018-06-12] MEDS ORDERED: *HR* Rocuronium Bromide 50 MG/5 ML VIAL ONE (10:54)
[2018-06-12] MEDS ORDERED: Lidocaine -MPF 4% 5 ML AMPUL ONE (10:54)
[2018-06-12] MEDS ORDERED: Lidocaine -MPF 2% 2 ML VIAL ONE (10:54)
--- NOTE | 2018-06-12 11:33 | Event Note ---
Date of Encounter: 06/12/18 Time of Encounter: 11:28 Patient was planned to have laparoscopic cholecystectomy today for recent choledocholithiasis and gallstone pancreatitis. Today his daughter who is present states patient has additional antibiotic allergies in addition to what is currently listed but she nor the patient know what they are. Patient is [facility] and [facility] is closed today due to holiday and we are currently unable to obtain that information. Will admit patient for observation and plan surgery tomorrow, will get old of [facility] pharmacy in an and confirm allergies to be able to proceed with surgery. Patient H/P is in paper format in chart/ 24 hr full h/p update
[2018-06-12] MEDS ORDERED: *HR* Dextrose 50 % in Water (Syg) 50 ML SYRINGE IVP PRN (11:52)
[2018-06-12] MEDS ORDERED: Naloxone 0.4 MG/ML INJ IVP PRN (11:52)
[2018-06-12] MEDS ORDERED: Dextrose Gel 15 GM/37.5 ML TUBE PO PRN ×2 (11:52)
[2018-06-12] MEDS ORDERED: D5% in Water 1,000 ML IVC PRN (11:52)
[2018-06-12] MEDS ORDERED: Ondansetron 4 MG/2 ML VIAL IVP PRN (11:52)
[2018-06-12] MEDS: Insulin LISPRO 300 UNITS/3 ML VIAL SQ SCH ×2 (13:00→16:45)
[2018-06-12] MEDS: Famotidine 20 MG TABLET PO SCH (16:44)
[2018-06-12] MEDS: *HR* Metformin 500 MG TABLET PO SCH (16:45)
[2018-06-12] MEDS: *HR* Heparin 5,000 UNIT/ML VIAL SQ SCH (22:21)
[2018-06-12] MEDS: Gabapentin 100 MG CAPSULE PO SCH (22:21)
[2018-06-13 05:52] LABS: Basophils # 0.1 K/mcL (0.0-0.2); Basophils % 0.9 %; Eosinophils # 0.3 K/mcL (0.0-0.6); Eosinophils % 3.5 %; Hematocrit 30.2 % (37.5-50.1); Immature Granulocytes % 0.3 % (0-4); Lymphocytes # 1.8 K/mcL (0.6-4.6); Lymphocytes % 23.5 %; Mean Corpuscular HGB Conc 33.1 g/dL (31.6-35.5); Mean Corpuscular Hemoglobin 32.9 pg (28.0-33.3); Mean Corpuscular Volume 99.3 fL (83.0-100.0); Mean Platelet Volume 9.8 fL (9.4-12.4); Monocytes # 0.8 K/mcL (0.0-1.3); Monocytes % 10.3 %; Neutrophils # 4.8 K/mcL (1.6-8.9); Platelet Count 186 K/mcL (140-400); Red Blood Count 3.04 M/mcL (4.19-5.50); Red Cell Distribution Width 13.5 % (11.5-14.5); Segmented Neutrophils % 61.5 %
[2018-06-13 06:12] LABS: Alanine Aminotransferase 10 Units/L (7-52); Albumin 3.8 g/dL (3.5-5.7); Albumin/Globulin Ratio 1.2 (1.1-2.2); Alkaline Phosphatase 85 Units/L (34-104); Aspartate Amino Transferase 10 Units/L (13-39); BUN/Creatinine Ratio 26 (6-26); Bilirubin,Direct 0.1 mg/dL (0.0-0.2); Bilirubin,Indirect 0.3 mg/dL (0.0-1.2); Bilirubin,Total 0.4 mg/dL (0.3-1.0); Blood Urea Nitrogen 32 mg/dL (8-23); Calcium 9.8 mg/dL (8.6-10.3); Carbon Dioxide 25 mEq/L (23-29); Chloride 104 mEq/L (98-107); Globulin 3.1 g/dL (2.4-3.5); Glucose 150 mg/dL (70-105); Osmolality,Calculated 296 (280-300); Potassium 4.5 mEq/L (3.5-5.1); Sodium 138 mEq/L (136-145); Total Protein 6.9 g/dL (6.4-8.9); eGFR For Non-African Americans 58 (> 60)
[2018-06-13] MEDS: Famotidine 20 MG TABLET PO SCH ×2 (06:43→17:43)
[2018-06-13] MEDS: *HR* Heparin 5,000 UNIT/ML VIAL SQ SCH ×3 (06:43→22:39)
[2018-06-13] MEDS: Furosemide 20 MG TABLET PO SCH (09:05)
[2018-06-13] MEDS: Cholecalciferol (D-3) 1,000 UNIT TABLET PO SCH (09:05)
[2018-06-13] MEDS: Gabapentin 100 MG CAPSULE PO SCH ×2 (09:05→22:40)
[2018-06-13] MEDS: *HR* Metformin 500 MG TABLET PO SCH ×2 (09:05→17:43)
[2018-06-13] MEDS: Insulin LISPRO 300 UNITS/3 ML VIAL SQ SCH ×3 (09:07→17:33)
--- NOTE | 2018-06-13 11:53 | General Surgery Progress Note ---
Date of Encounter: 06/13/18 Time of Encounter: 11:49 - Assessment and Plan (1) Diabetes mellitus Current Visit: No Status: Acute continue diabetic diet and home medication with SSI coverage if needed Qualifiers: Diabetes mellitus type: type 2 Diabetes mellitus long-term insulin use: unspecified ferry terminal agent insulin use status Diabetes mellitus complication status : without complication Qualified Code(s): E11.9 - Type 2 diabetes mellitus without complications (2) Choledocholithiasis Current Visit: No Status: Acute patient with CBD stent planning laparoscopic cholecystectomy in near future, awaiting to hear from [facility] regarding allergies (antibiotic) as patient and daughter daughter states she will be unable to take patient home after surgery and would like him set up with [facility] lft (3) GERD (gastroesophageal reflux disease) Current Visit: Yes Status: Chronic continue home medication Qualifiers: Esophagitis presence: with esophagitis Qualified Code(s): K21.0 - Gastro- esophageal reflux disease with esophagitis (4) BPH (benign prostatic hyperplasia) Current Visit: Yes Status: Chronic continue with home medication Qualifiers: Lower urinary tract symptom presence: unspecified whether lower urinary tract symptoms present Qualified Code(s): N40.0 - Benign prostatic hyperplasia without lower urinary tract symptoms Subjective Patient reports: no new complaints, tolerating a regular diet Objective Vital Signs - Last 8 Hours Temp Pulse Resp BP Pulse Ox 06/13/18 11:17 97.7 F 54 16 115/56 98 06/13/18 08:30 96 06/13/18 07:19 97.9 F 61 16 117/74 96 Intake and Output 06/12/18 06/13/18 06/13/18 23:59 07:59 15:59 Intake Total 240 / 240 720 / 720 240 / 240 Output Total 925 / 925 Balance 240 / 240 -205 / -205 240 / 240 Intake: Oral 240 / 240 720 / 720 240 / 240 Output: Urine 925 / 925 Other: Meal Dinner Breakfast Percent of Meal Consumed 90% 50% # Voids 3 Weight 101.9 kg Blood Glucose* 168 177 217 Patient Weight 06/13/18 23:59 Weight 101.9 kg - General physical appearance well developed, well nourished, no pain - Eyes PERRL, normal ocular movement - ENT normal mucosa, normocephalic - Neck Neck exam: trachea midline - Respiratory normal expansion, normal respiratory effort - Cardiovascular Cardiovascular exam: Present: RRR - Abdomen Abdomen: Present: bowel sounds present, soft, non tender - Integumentary no rash, no growths - Neurologic CN 2-12 grossly intact - Musculoskeletal normal gait - Psychiatric oriented to time, oriented to person, oriented to place, speech is normal, memory intact - Labs 06/13/18 05:26 06/13/18 05:26 Diabetes panel 06/13/18 Range/Units 05:26 Sodium 138 (136-145) mEq/L Potassium 4.5 (3.5-5.1) mEq/L Chloride 104 (98-107) mEq/L Carbon Dioxide 25 (23-29) mEq/L BUN 32 H (8-23) mg/dL Creatinine 1.21 (0.70-1.30) mg/dL Glucose 150 H (70-105) mg/dL Calcium 9.8 (8.6-10.3) mg/dL AST 10 L (13-39) Units/L ALT 10 (7-52) Units/L Alkaline Phosphatase 85 (34-104) Units/L Albumin 3.8 (3.5-5.7) g/dL Calcium panel 06/13/18 Range/Units 05:26 Calcium 9.8 (8.6-10.3) mg/dL Albumin 3.8 (3.5-5.7) g/dL Pituitary panel 06/13/18 Range/Units 05:26 Sodium 138 (136-145) mEq/L Potassium 4.5 (3.5-5.1) mEq/L Chloride 104 (98-107) mEq/L Carbon Dioxide 25 (23-29) mEq/L BUN 32 H (8-23) mg/dL Creatinine 1.21 (0.70-1.30) mg/dL Glucose 150 H (70-105) mg/dL Calcium 9.8 (8.6-10.3) mg/dL Adrenal panel 06/13/18 Range/Units 05:26 Sodium 138 (136-145) mEq/L Potassium 4.5 (3.5-5.1) mEq/L Chloride 104 (98-107) mEq/L Carbon Dioxide 25 (23-29) mEq/L BUN 32 H (8-23) mg/dL Creatinine 1.21 (0.70-1.30) mg/dL Glucose 150 H (70-105) mg/dL Calcium 9.8 (8.6-10.3) mg/dL Total Bilirubin 0.4 (0.3-1.0) mg/dL AST 10 L (13-39) Units/L ALT 10 (7-52) Units/L Alkaline Phosphatase 85 (34-104) Units/L Albumin 3.8 (3.5-5.7) g/dL Consult Discharge Plan - Plan Referrals: Brandi Womack MD [Partnered Physician] - [facility] [[facility] Care Provider] -
[2018-06-14] MEDS: Insulin LISPRO 300 UNITS/3 ML VIAL SQ SCH ×3 (08:14→17:47)
[2018-06-14] MEDS: Furosemide 20 MG TABLET PO SCH (08:14)
[2018-06-14] MEDS: *HR* Heparin 5,000 UNIT/ML VIAL SQ SCH ×3 (08:14→21:50)
[2018-06-14] MEDS: Cholecalciferol (D-3) 1,000 UNIT TABLET PO SCH (08:14)
[2018-06-14] MEDS: Gabapentin 100 MG CAPSULE PO SCH ×2 (08:15→21:50)
[2018-06-14] MEDS: *HR* Metformin 500 MG TABLET PO SCH ×2 (08:15→17:46)
[2018-06-14] MEDS: Famotidine 20 MG TABLET PO SCH ×2 (08:15→17:47)
--- NOTE | 2018-06-14 12:01 | General Surgery Progress Note ---
Date of Encounter: 06/14/18 Time of Encounter: 11:30 - Assessment and Plan (1) Choledocholithiasis Current Visit: No Status: Acute Diabetic diet NPO after midnight IV fluids at midnight Plan for laparoscopic cholecystectomy with Dr. Womack 06/15/18 Antibiotic allergies confirmed- Augmentin Supportive care Social service consult for discharge planning- [facility] (2) Diabetes mellitus Current Visit: No Status: Chronic Continue current medication regimen Qualifiers: Diabetes mellitus type: type 2 Diabetes mellitus fdc insulin use: unspecified improvement manager insulin use status Diabetes mellitus complication status : without complication Qualified Code(s): E11.9 - Type 2 diabetes mellitus without complications (3) BPH (benign prostatic hyperplasia) Current Visit: Yes Status: Chronic Qualifiers: Lower urinary tract symptom presence: unspecified whether lower urinary tract symptoms present Qualified Code(s): N40.0 - Benign prostatic hyperplasia without lower urinary tract symptoms (4) GERD (gastroesophageal reflux disease) Current Visit: Yes Status: Chronic PPI therapy daily Qualifiers: Esophagitis presence: with esophagitis Qualified Code(s): K21.0 - Gastro- esophageal reflux disease with esophagitis (5) DVT prophylaxis Current Visit: No Status: Acute Heparin 5,000 units SQ TID for DVT prophylaxis Subjective Patient reports: no new complaints, tolerating liquids well, tolerating a regular diet, voiding w/o difficulty, afebrile Objective Vital Signs - Last 8 Hours Temp Pulse Resp BP Pulse Ox 06/14/18 10:31 97.5 F L 55 15 120/75 98 06/14/18 07:18 97.6 F 56 15 147/62 97 Intake and Output 06/13/18 06/14/18 06/14/18 23:59 07:59 15:59 Intake Total 120 / 120 240 / 240 120 / 120 Output Total 0 / 0 0 / 0 Balance 120 / 120 240 / 240 120 / 120 Intake: Oral 120 / 120 240 / 240 120 / 120 Output: Urine 0 / 0 0 / 0 Other: Meal Dinner Percent of Meal Consumed 100% # Voids 2 Blood Glucose* 138 212 159 - General physical appearance well nourished, no distress, no pain - Eyes normal ocular movement - ENT normal mucosa, atraumatic, normocephalic - Neck Neck exam: trachea midline - Respiratory normal respiratory effort, clear to auscultation - Cardiovascular Cardiovascular exam: Present: RRR, bradycardia - Abdomen Abdomen: Present: bowel sounds present, soft, non tender - Neurologic CN 2-12 grossly intact - Psychiatric oriented to time, oriented to person, oriented to place, speech is normal, memory intact - Labs 06/13/18 05:26 06/13/18 05:26 Consult Discharge Plan - Plan Referrals: Brandi Womack MD [Partnered Physician] - [facility] [[facility] Care Provider] - - Attending Attestation For this encounter, I have reviewed the [employer]ANGER or PA documentation, treatment plan, and medical decision making; and I have had face to face time with this patient.
[2018-06-15] MEDS: 0.9 % Sodium Chloride 1,000 ML IVC SCH ×2 (00:10→23:52)
[2018-06-15] MEDS: *HR* Heparin 5,000 UNIT/ML VIAL SQ SCH ×2 (04:54→23:53)
[2018-06-15] MEDS: Insulin LISPRO 300 UNITS/3 ML VIAL SQ SCH ×2 (09:09→23:54)
[2018-06-15] MEDS: Gabapentin 100 MG CAPSULE PO SCH ×2 (09:15→23:55)
[2018-06-15] MEDS: Famotidine 20 MG TABLET PO SCH (09:15)
[2018-06-15] MEDS: Cholecalciferol (D-3) 1,000 UNIT TABLET PO SCH (09:15)
[2018-06-15] MEDS: *HR* Metformin 500 MG TABLET PO SCH ×2 (09:16→23:53)
[2018-06-15] MEDS: Furosemide 20 MG TABLET PO SCH (09:21)
[2018-06-15] MEDS ORDERED: Isovue-300 50 ML VIAL IVP ONE (15:27)
[2018-06-15] MEDS ORDERED: *HR* FentaNYL (PF) 100 MCG/2 ML VIAL ONE (15:46)
[2018-06-15] MEDS ORDERED: Ondansetron 4 MG/2 ML VIAL ONE (15:46)
[2018-06-15] MEDS ORDERED: Lidocaine -MPF 2% 2 ML VIAL ONE (15:46)
[2018-06-15] MEDS ORDERED: Neostigmine Methylsulfate 3 MG/3 ML SYRINGE ONE ×2 (15:46→18:28)
[2018-06-15] MEDS ORDERED: *HR* Rocuronium Bromide 50 MG/5 ML VIAL ONE (15:46)
[2018-06-15] MEDS ORDERED: *HR* Propofol 200 MG/20 ML VIAL IVP ONE (15:46)
[2018-06-15] MEDS ORDERED: Lidocaine -MPF 4% 5 ML AMPUL ONE (15:50)
--- NOTE | 2018-06-15 15:57 | Anesthesia Evaluation PreOp ---
Date of Encounter: 06/15/18 Time of Encounter: 15:55 - Past History Planned Operation: Laparoscopic Cholecystectomy Cardiac History: HTN, Hyperlipidemia, Other (H/O DVT, on Eliquis) Pulmonary History: Former smoker (smoked for 65 years, now using E-cigs), COPD RETAIL ZONE SPECIALIST History: Denies Any Significant HX Other Medical History: Diabetes Type II Anesthesia History: Past Anesthesia (no prior surgery) Alcohol Use: none Drug use: none Medications and Allergies Apixaban [Eliquis] 5 mg PO BID 03/23/18 [History] Aspirin [Lo-Dose Aspirin EC] 81 mg PO DAILY 03/23/18 [History] Atorvastatin Calcium [Lipitor] 40 mg PO HS 03/23/18 [History] Calcium Carbonate/Vitamin D3 [Calcium 250+D Tablet] 1 tab PO BID 03/23/18 [ History] Cholecalciferol (D-3) [Vitamin D] 2,000 unit PO DAILY 03/23/18 [History] Docusate [Colace] 100 mg PO BID PRN 03/23/18 [History] Ferrous Sulfate 325 mg PO BIDWM 03/23/18 [History] Furosemide [Lasix] 20 mg PO DAILY 03/23/18 [History] Gabapentin [Neurontin] 100 mg PO BID 03/23/18 [History] Melatonin/Pyridoxine HCl (B6) [Melatonin 3 mg Tablet] 3 tab PO HS 03/23/18 [ History] Multivitamin [One Daily Multivitamin] 1 tab PO DAILY 03/23/18 [History] Ranitidine HCl [Heartburn Relief] 150 mg PO BID 03/23/18 [History] Lisinopril [Zestril] 5 mg PO DAILY 06/12/18 [History] Metformin HCl 1,000 mg PO BID 06/12/18 [History] Tamsulosin HCl [Flomax] 0.8 mg PO DAILY 06/12/18 [History] 3 Allergy/AdvReac Type Severity Reaction Status Date / Time Amoxicillin Allergy See Verified 06/12/18 11:15 Comments clavulanic acid Allergy See Verified 06/12/18 11:15 Comments fluvastatin Allergy See Verified 06/12/18 11:15 Comments lovastatin Allergy See Verified 06/12/18 11:15 Comments niacin Allergy See Verified 06/12/18 11:15 Comments omeprazole Allergy See Verified 06/12/18 11:15 Comments simvastatin Allergy See Verified 06/12/18 11:15 Comments topiramate Allergy See Verified 06/12/18 11:15 Comments venlafaxine Allergy See Verified 06/12/18 11:15 Comments - Meds/Allergy Pre-op Review Medications Reviewed: Yes Allergies Reviewed: Yes Beta Blockers on Current Med List: No Anesthesia Results - Labs 06/13/18 05:26 06/13/18 05:26 - Imaging EKG: report reviewed (06/06/2018 SINUS BRADYCARDIA INTRAVENTRICULAR CONDUCTION DELAY) Anesthesia Exam Vital Signs/O2 Sat/Glucose, Most Recent Temp Pulse Resp BP Pulse Ox 97.8 F 83 17 126/72 95 06/15/18 10:22 06/15/18 10:22 06/15/18 10:22 06/15/18 10:22 06/15/18 10:22 Blood Glucose* 138 Height: 5'5''/1.65m Weight: 224 lbs/101.7 kg NPO (# of Hours): 8 Pain Scale: 0 Pain Scale Used: Numeric (1 - 10) - HEENT Pupil (Motor): EOMI Mallampati: II Teeth: Missing Denture Type: Upper: Complete Oral Opening: Greater than 3 - RETAIL ZONE SPECIALIST LOC: Oriented RETAIL ZONE SPECIALIST Motor: Normal RUE, Normal LUE, Normal RLE, Normal LLE, Normal Face RETAIL ZONE SPECIALIST Sensory: Normal: RUE, LUE, Face, Deficit: RLE, LLE - Cardiac Rhythm: Regular Murmur: None - Pulmonary Breath Sounds: bilateral Clear Respiratory Effort: Symmetrical Anesthesia Assess/Plan ASA Score: 3 Modified Delta Scale for Level of Consciousness: Cooperative, oriented, and tranquil Anesthetic Plan: General Monitoring Plan: Standard Monitors Recovery Plan: PACU
[2018-06-15] MEDS ORDERED: Clindamycin 900 MG/50 ML 900 MG/50 ML IV.SOLN IVPB ONE ×2 (16:23→16:57)
[2018-06-15] MEDS ORDERED: Dexamethasone 4 MG/ML VIAL ONE (16:34)
[2018-06-15] MEDS ORDERED: EPHEDrine 50 MG/ML VIAL ONE (16:37)
[2018-06-15] MEDS ORDERED: *HR* OxyCODONE Immed Rel 5 MG TABLET PO PRN (16:55)
[2018-06-15] MEDS ORDERED: *HR* Promethazine 25 MG/ML VIAL IVP PRN (16:55)
[2018-06-15] MEDS ORDERED: *HR* HYDROmorphone (PF) 1 MG/ML SYRINGE IVP PRN (16:55)
[2018-06-15] MEDS ORDERED: *HR* Labetalol 20 MG/4 ML SYRINGE IVP PRN (16:55)
[2018-06-15] MEDS ORDERED: *HR* PHENYLEPHRINE 1,000 MCG/10 ML SYRINGE IVP ONE (16:59)
[2018-06-15] MEDS ORDERED: *HR* Morphine 10 MG/ML VIAL ONE (17:36)
[2018-06-15] MEDS: Fluconazole 200 MG/100 ML 200 MG/100 ML BAG IVPB ONE (18:30)
--- NOTE | 2018-06-15 18:40 | Event Note ---
Date of Encounter: 06/15/18 Time of Encounter: 18:00 I was called to the operating room for intraoperative consultation by Dr. Womack. The patient was stable. Dr. Womack attempted laparoscopic cholecystectomy but was unable to safely complete the operation due to tremendous difficulty with dissection and inflammatory change along the lateral aspect of the common bile duct involving the neck of the gallbladder. Appropriate decision was made for open conversion. The patient had already had subcostal incision with exposure the gallbladder. The common bile duct was clearly visible and the gallbladder had been dissected retrograde off the gallbladder fossa. At this point I was able to assist in dissecting the cystic artery free of the neck of the gallbladder as well as mobilize the cystic duct. Dr. Womack had performed the vast majority of the dissection. There was no evidence of any injury. Once the cystic artery and cystic duct were fully dissected identified the cystic duct was ligated and the cholecystectomy was completed. There was no bleeding. I was present for the dissection of the neck the gallbladder and cystic artery and cystic duct. No evidence of damage to the common bile duct. Excellent technical result. The remainder of the patient's care is assumed by Dr. Womack
[2018-06-15] MEDS ORDERED: Acetaminophen IV 1,000 MG/100 ML INFUS..BTL ONE (19:05)
--- NOTE | 2018-06-15 19:20 | Operative Note ---
Date of procedure: 06/15/18 Pre-op diagnosis: choledocholithiasis, gallstone pancreatitis Post-op diagnosis: same Procedure: Laparoscopic converted to open cholecystectomy Complications: none immediate Anesthesia: RODRICK local Surgeon: Brandi Womack Was there an compounding assistant present: Yes Corporate Development Intern: Jenifer Street Corporate Development Intern Other: Ramón Johns Estimated blood loss (cc): 280 Specimen: gallbladder and contents Condition: stable Disposition: PACU Procedure in Detail: Patient was brought into the operating suite and placed supine on the operating table. Sign in was performed and everyone was in agreement. Anesthesia was induced and patient was endotracheally intubated by anesthesia without incident. The abdomen was prepped and draped in the usual sterile fashion. Timeout was performed and everyone was in agreement. Stab incision left upper quadrant with 11 blade was made through the skin and subcutaneous tissue. Veress needle was placed through this and water drop test confirmed placement and the abdomen was insufflated. An incision above the umbilicus was made with an 11 blade. Towel clamps were placed on 7 fascia for retraction. We dissected through the subcutaneous tissue to the intra-abdominal fascia with S retractors. The abdomen was entered with a 5 mm 0 degree laparoscope on a 5 mm excelL trocar. A 5 mm trocar was placed in the subxiphoid position under direct visualization after first incising skin with 11 blade. A 5 mm port was placed in the subcostal right upper quadrant midclavicular line under direct visualization after first incising the skin with 11 blade. The laparoscope was placed to the right upper quadrant port. The super umbilical 5 mm port was visualized and it was obvious that was going through a small super umbilical hernia with omentum incarcerated within the hernia. The 5 mm port was removed. An incision several centimeters above the super umbilical incision was made through the skin into the subcutaneous tissue and 11 blade. The 12 mm port was placed through this incision. The super umbilical 5 mm port skin was closed with 4-0 Monocryl interrupted subcuticular stitches and a Tegaderm applied over the wound. The patient was placed in reverse Trendelenburg left side down position. The lesser omentum was adherent to the inferior aspect of the liver as well as the omentum. Using gentle blunt dissection and the Bovie the lesser omentum and greater omentum were dissected off the dome of the gallbladder. The gallbladder was scarred and tense. The anterior aspect of the right liver was completely adhesed to the anterior abdominal wall. These adhesions are taken down with the laparoscopic right angle.. The liver was very dense and heavy and this did not afford any more significant retraction of the liver. Due to the patient's body habitus, immobility of the liver and small contracted gallbladder visualization of the infundibulum was not possible. The decision to convert to open was made. The trochars were removed. A [place] incision through the skin and the subcutaneous tissue was made with a 15 blade connecting the previous right upper quadrant and subxiphoid port sites. He dissected through the subcutaneous tissue to the anterior abdominal wall with the Bovie. The lateral anterior rectus and external oblique fascia was transected with the Bovie. A large Antoinette was placed beneath the rectus muscle which was transected with the Bovie. Bookwalter was placed for retraction and exposure. A Antoinette was placed on the dome of the gallbladder for retraction. The gallbladder was taken off the liver in a dome down fashion with the Bovie and gentle blunt dissection. Around the infundibulum of the gallbladder there was significant scar and inflammatory changes making the dissection extremely difficult. Patient had a very large dilated common bile duct. The dome of the gallbladder was opened with the Bovie. Intraluminal gallstones were removed. The area of the infundibulum was able to be located through the lumen of the gallbladder. Using the right angle and gentle blunt dissection with Kitners were able to dissect to the infundibulum of the gallbladder which was densely scarred and adherent to the common bile duct area. Dr Johns was called into the case for an intraoperative consult due to the difficulty of dissection. Using a right angle the cystic artery was dissected off the posterior aspect of the cystic duct and two 5 mm Hemoclips were placed toward the common duct and it was transected near the gallbladder with the Bovie. A large dilated short scarred cystic duct was dissected with the right ankle. The cystic duct was ligated with 2 separate 0 silk ties and the gallbladder was transected off the cystic duct with Metzenbaum scissors. There was no obvious common bile duct injury. The abdomen was irrigated with sterile saline. A 19-[place] Tal drain was placed through the right upper quadrant skin after an incision was made with an 11 blade, laying the drain along the inferior aspect of the liver at the cystic plate. The Tal drain was secured to the skin with a 2-0 silk stitch. The posterior rectus and posterior transversus abdominis muscle fascia was reapproximated with a #1 non-looped PDS running stitch. The anterior rectus fascia and external oblique fascia were reapproximated with 2 separate # 1 non-looped PDS running stitches meeting in the middle. The subcutaneous tissue was copiously irrigated with sterile saline. The subcutaneous tissue was reapproximated with 3-0 Vicryl interrupted stitches. The skin was closed with kaylee. The abdominal wall the previous 12 mm port site was closed with a 0 Vicryl [id number] stitch. Kaylee were used to close the incision. All lap and instrument counts were correct at the end of the case. 30 mL of 0.5 % Marcaine was injected subcutaneously at the Bret incision. 4 x 4 gauze and Medipore tape were applied as a dressing to the right upper quadrant incision, a drain sponge was placed at the Tal drain site at the skin. A large Band- Aid was placed at the 12 mm port site. And Steri-Strips were applied at the supraumbilical incision site. Patient was awoken in the operating suite and extubated by anesthesia without incident. He was taken to PACU in stable condition.
[2018-06-15] MEDS ORDERED: Naloxone 0.4 MG/ML INJ IVP PRN (21:25)
[2018-06-15] MEDS ORDERED: Dextrose Gel 15 GM/37.5 ML TUBE PO PRN ×2 (21:25)
[2018-06-15] MEDS ORDERED: D5% in Water 1,000 ML IVC PRN (21:25)
[2018-06-15] MEDS ORDERED: OXYCODONE Oral CONC 10 MG/0.5 ML ORAL.SYG SL PRN (21:25)
[2018-06-15] MEDS ORDERED: *HR* Dextrose 50 % in Water (Syg) 50 ML SYRINGE IVP PRN (21:25)
[2018-06-15] MEDS ORDERED: Ondansetron 4 MG/2 ML VIAL IVP PRN (21:25)
--- NOTE | 2018-06-15 21:32 | Anesthesia Evaluation Post Op ---
Date of Encounter: 06/15/18 Time of Encounter: 21:31 - Vital Signs Vital Signs: Vital Signs/O2 Sat, Most Current Temp Pulse Resp BP Pulse Ox 94.2 F L 92 20 134/92 100 06/15/18 21:20 06/15/18 21:20 06/15/18 21:20 06/15/18 21:20 06/15/18 21:20 - Lungs Lungs: Clear Ascult./Percussion - Airway Airway: Non-obstructed - Cardiovascular Regular Rate - Mental Status Mental Status: Alert & Oriented, Answers Appropriately - Pain Pain Scale: 0 Pain Scale used: Numeric (1 - 10) - Nausea Vomiting Nausea Vomiting: Not Present - Hydration Hydration: NPO, Has not voided - Discharge PostOp Status: Transfer Patient to floor
[2018-06-16 01:37] LABS: Basophils % 0.1 %; Hematocrit 27.4 % (37.5-50.1); Hemoglobin 9.2 g/dL (12.9-16.9); Immature Granulocytes % 0.3 % (0-4); Lymphocytes # 0.4 K/mcL (0.6-4.6); Lymphocytes % 2.7 %; Mean Corpuscular HGB Conc 33.6 g/dL (31.6-35.5); Mean Corpuscular Volume 98.2 fL (83.0-100.0); Mean Platelet Volume 9.9 fL (9.4-12.4); Monocytes # 0.6 K/mcL (0.0-1.3); Monocytes % 4.4 %; Neutrophils # 12.3 K/mcL (1.6-8.9); Platelet Count 150 K/mcL (140-400); Red Blood Count 2.79 M/mcL (4.19-5.50); Red Cell Distribution Width 13.2 % (11.5-14.5); Segmented Neutrophils % 92.5 %
[2018-06-16 01:56] LABS: Alanine Aminotransferase 108 Units/L (7-52); Albumin 3.5 g/dL (3.5-5.7); Albumin/Globulin Ratio 1.3 (1.1-2.2); Alkaline Phosphatase 86 Units/L (34-104); Aspartate Amino Transferase 83 Units/L (13-39); Bilirubin,Direct 0.1 mg/dL (0.0-0.2); Bilirubin,Indirect 0.5 mg/dL (0.0-1.2); Bilirubin,Total 0.6 mg/dL (0.3-1.0); Blood Urea Nitrogen 27 mg/dL (8-23); Calcium 8.9 mg/dL (8.6-10.3); Carbon Dioxide 21 mEq/L (23-29); Chloride 103 mEq/L (98-107); Globulin 2.8 g/dL (2.4-3.5); Glucose 312 mg/dL (70-105); Osmolality,Calculated 297 (280-300); Sodium 135 mEq/L (136-145); Total Protein 6.3 g/dL (6.4-8.9)
[2018-06-16] MEDS: Acetaminophen IV 1,000 MG/100 ML INFUS..BTL IVPB SCH ×4 (02:00→18:41)
[2018-06-16] MEDS: *HR* Heparin 5,000 UNIT/ML VIAL SQ SCH ×4 (02:01→21:31)
[2018-06-16 02:36] LABS: BUN/Creatinine Ratio 23 (6-26); eGFR For Non-African Americans > 60 (> 60)
[2018-06-16] MEDS: 0.9 % Sodium Chloride 1,000 ML IVC SCH (06:09)
[2018-06-16] MEDS: *HR* Metformin 500 MG TABLET PO SCH ×2 (08:07→16:43)
[2018-06-16] MEDS: Insulin LISPRO 300 UNITS/3 ML VIAL SQ SCH ×4 (08:08→21:31)
[2018-06-16] MEDS ORDERED: Famotidine 20 MG TABLET PO SCH (09:00)
--- NOTE | 2018-06-16 11:25 | General Surgery Progress Note ---
<Mecca Barcenas - Last Filed: 06/16/18 11:23> Date of Encounter: 06/16/18 Time of Encounter: 11:00 - Assessment and Plan (1) Choledocholithiasis Current Visit: No Status: Acute POD #1 Laparoscopic converted to open cholecystectomy with Dr. Womack Pathology pending Continue clear liquid diet with assistance- will advance with return of bowel function IV fluids- 50ml/hour Strict I&Os Bladder scan now- may need simon catheter IS every 1 hour while awake Continue surgical drain Daily incision care PPI therapy daily Supportive care Out of bed to chair with assistance for meals PT/OT for mobilization AM labs- CBC, BMP Social service consult for [facility] (2) Diabetes mellitus Current Visit: No Status: Chronic Hyperglycemia noted Increased patient to medium sliding scale coverage Qualifiers: Diabetes mellitus type: type 2 Diabetes mellitus termite control 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 insulin use: unspecified termite control 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 insulin use status Diabetes mellitus complication status : without complication Qualified Code(s): E11.9 - Type 2 diabetes mellitus without complications (3) BPH (benign prostatic hyperplasia) Current Visit: Yes Status: Chronic Bladder scan now May need simon catheter Strict I&Os Add Flomax Qualifiers: Lower urinary tract symptom presence: unspecified whether lower urinary tract symptoms present Qualified Code(s): N40.0 - Benign prostatic hyperplasia without lower urinary tract symptoms (4) GERD (gastroesophageal reflux disease) Current Visit: Yes Status: Chronic PPI therapy daily Qualifiers: Esophagitis presence: with esophagitis Qualified Code(s): K21.0 - Gastro- esophageal reflux disease with esophagitis (5) DVT prophylaxis Current Visit: No Status: Acute Heparin 5,000 units SQ TID for DVT prophylaxis Subjective Patient reports: no new complaints, still having pain (post-surgical- minimal complaints), tolerating liquids well (with assistance), no flatus, no bowel movement, afebrile Objective Vital Signs - Last 8 Hours Temp Pulse Resp BP Pulse Ox 06/16/18 09:51 98.1 F 100 23 138/79 98 06/16/18 07:06 98.6 F 98 22 146/83 98 06/16/18 04:45 97.6 F 108 23 137/80 97 Intake and Output 06/15/18 06/16/18 06/16/18 23:59 07:59 15:59 Intake Total 950 / 950 100 / 100 340 / 340 Output Total 280 / 280 100 / 100 80 / 80 Balance 670 / 670 0 / 0 260 / 260 Intake: IV Fluids 950 / 950 100 / 100 100 / 100 0.9 % Sodium Chloride 1,000 ML 800 / 800 @ 50 mls/hr IVC .Q[facility]H [facility] Rx#: [id number] Ofirmev 1,000 mg/100 ml 1,000 100 / 100 100 / 100 mg In 100 ml @ 400 mls/hr IVPB Q6HR [facility] Rx#:[id number] Cleocin Premix 900 MG/50 ML 900 50 / 50 mg In 50 ml @ 50 mls/hr IVPB ONCE ONE Rx#:[id number] Diflucan Premix 200 MG/100 ML 100 / 100 200 mg In 100 ml @ 100 mls/hr IVPB ONCE ONE Rx#:[id number] Oral 240 / 240 Output: Urine 0 / 0 Estimated Blood Loss 280 / 280 Wound Drainage 100 / 100 80 / 80 Right Abdomen 100 / 100 80 / 80 Other: Meal NPO CLEARS Blood Glucose* 327 - General physical appearance well developed, well nourished, no distress, chronically ill - Eyes PERRL, normal ocular movement - ENT normal mucosa, atraumatic, normocephalic - Neck Neck exam: trachea midline - Respiratory normal respiratory effort, clear to auscultation - Cardiovascular Cardiovascular exam: Present: RRR - Abdomen Abdomen: Present: bowel sounds present, soft, tender (Expected postoperative tenderness), wound (VINH drain to bulb suction with serous drainage noted (200ml noted since midnight)) - Incision Incision: Present: clean and dry, intact - Neurologic CN 2-12 grossly intact - Psychiatric oriented to person, oriented to place, speech is normal - Labs 06/16/18 01:15 06/16/18 01:15 Diabetes panel 06/16/18 Range/Units 01:15 Sodium 135 L (136-145) mEq/L Potassium 4.0 (3.5-5.1) mEq/L Chloride 103 (98-107) mEq/L Carbon Dioxide 21 L (23-29) mEq/L BUN 27 H (8-23) mg/dL Creatinine 1.17 (0.70-1.30) mg/dL Glucose 312 H (70-105) mg/dL Calcium 8.9 (8.6-10.3) mg/dL AST 83 H (13-39) Units/L ALT 108 H (7-52) Units/L Alkaline Phosphatase 86 (34-104) Units/L Albumin 3.5 (3.5-5.7) g/dL Calcium panel 06/16/18 Range/Units 01:15 Calcium 8.9 (8.6-10.3) mg/dL Albumin 3.5 (3.5-5.7) g/dL Pituitary panel 06/16/18 Range/Units 01:15 Sodium 135 L (136-145) mEq/L Potassium 4.0 (3.5-5.1) mEq/L Chloride 103 (98-107) mEq/L Carbon Dioxide 21 L (23-29) mEq/L BUN 27 H (8-23) mg/dL Creatinine 1.17 (0.70-1.30) mg/dL Glucose 312 H (70-105) mg/dL Calcium 8.9 (8.6-10.3) mg/dL Adrenal panel 06/16/18 Range/Units 01:15 Sodium 135 L (136-145) mEq/L Potassium 4.0 (3.5-5.1) mEq/L Chloride 103 (98-107) mEq/L Carbon Dioxide 21 L (23-29) mEq/L BUN 27 H (8-23) mg/dL Creatinine 1.17 (0.70-1.30) mg/dL Glucose 312 H (70-105) mg/dL Calcium 8.9 (8.6-10.3) mg/dL Total Bilirubin 0.6 (0.3-1.0) mg/dL AST 83 H (13-39) Units/L ALT 108 H (7-52) Units/L Alkaline Phosphatase 86 (34-104) Units/L Albumin 3.5 (3.5-5.7) g/dL Consult Discharge Plan - Plan Referrals: Brandi Womack MD [Partnered Physician] - [facility] - - Attending Attestation For this encounter, I have reviewed the RIPSHEAR OPERATOR or PA documentation, treatment plan, and medical decision making; and I have had face to face time with this patient. <Brandi Womack - Last Filed: 06/16/18 15:02> Date of Encounter: 06/16/18 Time of Encounter: 08:30 - Assessment and Plan (1) Diabetes mellitus Current Visit: No Status: Chronic Qualifiers: Diabetes mellitus type: type 2 Diabetes mellitus care home insulin use: unspecified termite control 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 insulin use status Diabetes mellitus complication status : without complication Qualified Code(s): E11.9 - Type 2 diabetes mellitus without complications (2) Choledocholithiasis Current Visit: No Status: Acute Tal drain serosanginous pain controlled per patient start clears and see how he tolerates (3) GERD (gastroesophageal reflux disease) Current Visit: Yes Status: Chronic Qualifiers: Esophagitis presence: with esophagitis Qualified Code(s): K21.0 - Gastro- esophageal reflux disease with esophagitis (4) BPH (benign prostatic hyperplasia) Current Visit: Yes Status: Chronic Qualifiers: Lower urinary tract symptom presence: unspecified whether lower urinary tract symptoms present Qualified Code(s): N40.0 - Benign prostatic hyperplasia without lower urinary tract symptoms (5) Cutaneous candidiasis Current Visit: Yes Status: Acute nystatin powder to affected areas BID diflucan daily Subjective Patient reports: still having pain, no flatus, no bowel movement, afebrile Objective Vital Signs - Last 8 Hours Temp Pulse Resp BP Pulse Ox 06/16/18 14:43 97.8 F 84 18 138/76 100 06/16/18 12:00 97.6 F 102 22 145/80 98 06/16/18 09:51 98.1 F 100 23 138/79 98 06/16/18 08:30 98 06/16/18 07:06 98.6 F 98 22 146/83 98 Intake and Output 06/15/18 06/16/18 06/16/18 23:59 07:59 15:59 Intake Total 950 / 950 100 / 100 540 / 540 Output Total 280 / 280 100 / 100 1400 / 1400 Balance 670 / 670 0 / 0 -860 / -860 Intake: IV Fluids 950 / 950 100 / 100 300 / 300 0.9 % Sodium Chloride 1,000 ML 800 / 800 @ 50 mls/hr IVC .Q20H [facility] Rx#: [id number] Ofirmev 1,000 mg/100 ml 1,000 100 / 100 200 / 200 mg In 100 ml @ 400 mls/hr IVPB Q6HR [facility] Rx#:[id number] Cleocin Premix 900 MG/50 ML 900 50 / 50 mg In 50 ml @ 50 mls/hr IVPB ONCE ONE Rx#:[id number] Diflucan Premix 200 MG/100 ML 100 / 100 100 / 100 200 mg In 100 ml @ 100 mls/hr IVPB DAILY [facility] Rx#:[id number] Oral 240 / 240 Output: Urine 0 / 0 Estimated Blood Loss 280 / 280 Catheter 1300 / 1300 Urethral (Simon) 1300 / 1300 Wound Drainage 100 / 100 100 / 100 Right Abdomen 100 / 100 100 / 100 Other: Meal NPO Lunch Percent of Meal Consumed 0% Blood Glucose* 327 259 - General physical appearance well developed, well nourished, no distress, moderate pain - Eyes normal ocular movement - ENT normal mucosa, normocephalic - Respiratory normal expansion, normal respiratory effort - Cardiovascular Cardiovascular exam: Present: RRR - Abdomen Abdomen: Present: bowel sounds present, tender Additional Comments: candidiasis groin folds - Incision Incision: Present: clean and dry, intact - Integumentary no rash, no growths - Neurologic CN 2-12 grossly intact - Musculoskeletal normal posture - Psychiatric oriented to time, oriented to person, oriented to place, speech is normal, memory intact - Labs 06/16/18 01:15 06/16/18 01:15 Short CBC 06/16/18 Range/Units 01:15 WBC 13.3 H D (4.3-11.1) K/mcL Hgb 9.2 L (12.9-16.9) g/dL Hct 27.4 L (37.5-50.1) % Plt Count 150 (140-400) K/mcL Neutrophils # 12.3 H (1.6-8.9) K/mcL BMP 06/16/18 Range/Units 01:15 Sodium 135 L (136-145) mEq/L Potassium 4.0 (3.5-5.1) mEq/L Chloride 103 (98-107) mEq/L Carbon Dioxide 21 L (23-29) mEq/L BUN 27 H (8-23) mg/dL Creatinine 1.17 (0.70-1.30) mg/dL Glucose 312 H (70-105) mg/dL Calcium 8.9 (8.6-10.3) mg/dL Liver Function 06/16/18 Range/Units 01:15 Total Bilirubin 0.6 (0.3-1.0) mg/dL Direct Bilirubin 0.1 (0.0-0.2) mg/dL AST 83 H (13-39) Units/L ALT 108 H (7-52) Units/L Alkaline Phosphatase 86 (34-104) Units/L Albumin 3.5 (3.5-5.7) g/dL Vital Signs Temp Pulse Resp BP Pulse Ox 06/16/18 14:43 97.8 F 84 18 138/76 100 06/16/18 12:00 97.6 F 102 22 145/80 98 06/16/18 09:51 98.1 F 100 23 138/79 98 06/16/18 08:30 98 06/16/18 07:06 98.6 F 98 22 146/83 98 06/16/18 04:45 97.6 F 108 23 137/80 97 06/16/18 02:15 97.1 F L 123 28 141/69 95 06/16/18 02:00 97.8 F 93 20 127/72 98 06/16/18 00:27 96.3 F L 118 20 126/72 94 06/15/18 23:30 96.3 F L 107 20 129/78 93 06/15/18 22:10 95.1 F L 105 20 139/78 98 06/15/18 21:40 94.5 F L 100 20 137/82 100 06/15/18 21:23 100 06/15/18 21:20 94.2 F L 92 20 134/92 100 06/15/18 20:16 97.0 F L 86 18 123/55 100 06/15/18 20:06 86 18 132/64 100 06/15/18 19:56 86 20 125/59 100 06/15/18 19:46 97.1 F L 89 20 135/66 94 06/15/18 19:36 93 20 139/62 93 06/15/18 19:26 88 20 143/60 98 06/15/18 19:16 97.7 F 97 20 111/60 98 Intake and Output 06/15/18 06/16/18 06/16/18 23:59 07:59 15:59 Intake Total 950 / 950 100 / 100 540 / 540 Output Total 280 / 280 100 / 100 1400 / 1400 Balance 670 / 670 0 / 0 -860 / -860 Intake: IV Fluids 950 / 950 100 / 100 300 / 300 0.9 % Sodium Chloride 1,000 ML 800 / 800 @ 50 mls/hr IVC .Q20H [facility] Rx#: [id number] Ofirmev 1,000 mg/100 ml 1,000 100 / 100 200 / 200 mg In 100 ml @ 400 mls/hr IVPB Q6HR [facility] Rx#:[id number] Cleocin Premix 900 MG/50 ML 900 50 / 50 mg In 50 ml @ 50 mls/hr IVPB ONCE ONE Rx#:[id number] Diflucan Premix 200 MG/100 ML 100 / 100 100 / 100 200 mg In 100 ml @ 100 mls/hr IVPB DAILY [facility] Rx#:[id number] Oral 240 / 240 Output: Urine 0 / 0 Estimated Blood Loss 280 / 280 Catheter 1300 / 1300 Urethral (Siomn) 1300 / 1300 Wound Drainage 100 / 100 100 / 100 Right Abdomen 100 / 100 100 / 100 Other: Meal NPO Lunch Percent of Meal Consumed 0% Blood Glucose* 327 802 - Attending Attestation I have personally performed a face to face evaluation on this patient. I have reviewed and agree with the care plan. History and Exam by me shows:
[2018-06-16] MEDS: Gabapentin 100 MG CAPSULE PO SCH ×2 (11:32→21:30)
[2018-06-16] MEDS: Famotidine 20 MG TABLET PO SCH (11:32)
[2018-06-16] MEDS: Furosemide 20 MG TABLET PO SCH (11:32)
[2018-06-16] MEDS: Cholecalciferol (D-3) 1,000 UNIT TABLET PO SCH (11:34)
[2018-06-16] MEDS: Nystatin POWDER 30 GM BOTTLE TP SCH ×2 (11:34→21:32)
[2018-06-16] MEDS: Fluconazole 200 MG/100 ML 200 MG/100 ML BAG IVPB SCH (11:37)
[2018-06-16] MEDS: Fluconazole 200 MG/100 ML 200 MG/100 ML BAG IVPB ONE (16:42)
[2018-06-16] MEDS: OXYCODONE Oral CONC 10 MG/0.5 ML ORAL.SYG SL PRN (16:44)
[2018-06-17] MEDS: Acetaminophen IV 1,000 MG/100 ML INFUS..BTL IVPB SCH ×4 (01:14→18:21)
[2018-06-17] MEDS: *HR* Heparin 5,000 UNIT/ML VIAL SQ SCH ×3 (05:38→20:24)
[2018-06-17] MEDS: 0.9 % Sodium Chloride 1,000 ML IVC SCH (05:39)
[2018-06-17 06:50] LABS: Basophils % 0.1 %; Hemoglobin 8.5 g/dL (12.9-16.9); Immature Granulocytes % 0.3 % (0-4); Lymphocytes # 1.4 K/mcL (0.6-4.6); Lymphocytes % 9.7 %; Mean Corpuscular HGB Conc 32.7 g/dL (31.6-35.5); Mean Corpuscular Hemoglobin 32.8 pg (28.0-33.3); Mean Corpuscular Volume 100.4 fL (83.0-100.0); Mean Platelet Volume 10.4 fL (9.4-12.4); Monocytes % 6.8 %; Neutrophils # 12.3 K/mcL (1.6-8.9); Platelet Count 156 K/mcL (140-400); Red Blood Count 2.59 M/mcL (4.19-5.50); Red Cell Distribution Width 13.7 % (11.5-14.5); Segmented Neutrophils % 83.1 %
[2018-06-17 07:08] LABS: BUN/Creatinine Ratio 18 (6-26); Blood Urea Nitrogen 19 mg/dL (8-23); Calcium 8.6 mg/dL (8.6-10.3); Carbon Dioxide 24 mEq/L (23-29); Chloride 104 mEq/L (98-107); Glucose 178 mg/dL (70-105); Osmolality,Calculated 289 (280-300); Potassium 3.8 mEq/L (3.5-5.1); Sodium 136 mEq/L (136-145); eGFR For Non-African Americans > 60 (> 60)
[2018-06-17] MEDS: OXYCODONE Oral CONC 10 MG/0.5 ML ORAL.SYG SL PRN (08:45)
[2018-06-17] MEDS: Furosemide 20 MG TABLET PO SCH (08:45)
[2018-06-17] MEDS: *HR* Metformin 500 MG TABLET PO SCH ×2 (08:45→18:20)
[2018-06-17] MEDS: Cholecalciferol (D-3) 1,000 UNIT TABLET PO SCH (08:45)
[2018-06-17] MEDS: Famotidine 20 MG TABLET PO SCH (08:46)
[2018-06-17] MEDS: Nystatin POWDER 30 GM BOTTLE TP SCH ×2 (08:46→20:26)
[2018-06-17] MEDS: Gabapentin 100 MG CAPSULE PO SCH ×2 (08:46→20:24)
[2018-06-17] MEDS: Fluconazole 200 MG/100 ML 200 MG/100 ML BAG IVPB SCH (08:47)
[2018-06-17] MEDS: Insulin LISPRO 300 UNITS/3 ML VIAL SQ SCH ×4 (08:47→20:25)
--- NOTE | 2018-06-17 10:02 | General Surgery Progress Note ---
Date of Encounter: 06/17/18 Time of Encounter: 09:59 - Assessment and Plan (1) Choledocholithiasis Current Visit: No Status: Acute POD 2 Open cholecystectomy converted from laproscopic with Dr Womack - pathology pending - Continue clears, patient must have assistance to eat until OT can give more recommendation - Continue IVF at 50 - strict I/Os - continue daily wound care and joshua drain care - continue daily PPI - continue supportive care and pain management - PT consulted for mobilizations - up to chair with meals Social work consulted for discharge planning to [place] and needs per PT/OT (2) Anemia Current Visit: Yes Status: Chronic HgB 8.5 from 9.2 with baseline around 10 - continue to monitor Qualifiers: Anemia type: unspecified type Qualified Code(s): D64.9 - Anemia, unspecified (3) History of DVT (deep vein thrombosis) Current Visit: Yes Status: Acute Concern for increased edema and erythema considering history of DVT. Patient also has ongoing tachycardia but denies shortness of breath. -ordered bilateral US state this morning and nursing has attempted to prompt test but was not completed at 6pm - wet read showed partial politeal DVT in left lower extremity DVT - attempted to reach Dr Barcenas by phone, he later answered an instructed to start 1mg/kg now and another dose in 12 hours - d/c heparin sq (4) DVT, popliteal, acute Current Visit: Yes Status: Acute Partial, newly diagnosed- for treatment see above in hx of dvt Qualifiers: Laterality: left Qualified Code(s): I82.432 - Acute embolism and thrombosis of left popliteal vein (5) Diabetes mellitus Current Visit: No Status: Chronic continue medium ISS Qualifiers: Diabetes mellitus type: type 2 Diabetes mellitus chcf insulin use: unspecified ad terminal makeup operator insulin use status Diabetes mellitus complication status: without complication Qualified Code(s): E11.9 - Type 2 diabetes mellitus without complications (6) GERD (gastroesophageal reflux disease) Current Visit: Yes Status: Chronic PPI daily therapy continued Qualifiers: Esophagitis presence: with esophagitis Qualified Code(s): K21.0 - Gastro- esophageal reflux disease with esophagitis (7) BPH (benign prostatic hyperplasia) Current Visit: Yes Status: Chronic Fraser placed yesterday due to decreased out put- please continue and record strict I/Os Qualifiers: Lower urinary tract symptom presence: unspecified whether lower urinary tract symptoms present Qualified Code(s): N40.0 - Benign prostatic hyperplasia without lower urinary tract symptoms (8) Dementia Current Visit: Yes Status: Acute Unclear history of dementia but patient is altered at baseline for entire admit, now unable to feed self - several missed OT visits , thus re-consulted due to patient's inability to feed self Qualifiers: Alzheimer's disease onset: unspecified onset Dementia behavioral disturbance: without behavioral disturbance Qualified Code(s): G30.9 - Alzheimer's disease, unspecified; F02.80 - Dementia in other diseases classified elsewhere without behavioral disturbance (9) DVT prophylaxis Current Visit: No Status: Acute Subjective Patient reports: feels better, tolerating liquids well (clears but not able to cordinate movements of eating), no bowel movement, other (remains altered and unable to feed self) Objective Vital Signs - Last 8 Hours Temp Pulse Resp BP Pulse Ox 06/17/18 05:21 98.1 F 95 15 122/71 99 Intake and Output 06/16/18 06/17/18 06/17/18 23:59 07:59 15:59 Intake Total 100 / 100 1100 / 1100 Output Total 850 / 850 200 / 200 Balance -750 / -750 900 / 900 Intake: IV Fluids 100 / 100 1100 / 1100 0.9 % Sodium Chloride 1,000 ML 1000 / 1000 @ 50 mls/hr IVC .Q20H [facility] Rx#: [id number] Ofirmev 1,000 mg/100 ml 1,000 100 / 100 100 / 100 mg In 100 ml @ 400 mls/hr IVPB Q6HR [facility] Rx#:[id number] Oral 0 / 0 0 / 0 Output: Urine 200 / 200 Catheter 800 / 800 Wound Drainage 50 / 50 0 / 0 Right Abdomen 50 / 50 0 / 0 Other: Meal keep Blood Glucose* 191 222 - General physical appearance well developed, well nourished, obese - Eyes normal ocular movement - ENT normal pinna, normal nares, normal mucosa - Respiratory normal expansion, clear to auscultation - Cardiovascular Cardiovascular exam: Present: RRR, no murmurs/rubs/gallops Addtional Comments: bilat calf tenderness - Abdomen Abdomen: Present: bowel sounds present, soft, non tender, distended Hernia: none - Incision Incision: Present: clean and dry, serosanguinous, approximated. Absent: inflamed, erythema - Integumentary no rash, no growths, no abnormal pigmentation - Neurologic confused, disoriented, memory loss, other (unable to follow exam instructions) - Musculoskeletal other (weak and unable to lift self from bed) - Psychiatric oriented to person, other (speech is slowed) - Labs 06/17/18 05:03 06/17/18 05:03 Diabetes panel 06/17/18 Range/Units 05:03 Sodium 136 (136-145) mEq/L Potassium 3.8 (3.5-5.1) mEq/L Chloride 104 (98-107) mEq/L Carbon Dioxide 24 (23-29) mEq/L BUN 19 (8-23) mg/dL Creatinine 1.07 (0.70-1.30) mg/dL Glucose 178 H (70-105) mg/dL Calcium 8.6 (8.6-10.3) mg/dL Calcium panel 06/17/18 Range/Units 05:03 Calcium 8.6 (8.6-10.3) mg/dL Pituitary panel 06/17/18 Range/Units 05:03 Sodium 136 (136-145) mEq/L Potassium 3.8 (3.5-5.1) mEq/L Chloride 104 (98-107) mEq/L Carbon Dioxide 24 (23-29) mEq/L BUN 19 (8-23) mg/dL Creatinine 1.07 (0.70-1.30) mg/dL Glucose 178 H (70-105) mg/dL Calcium 8.6 (8.6-10.3) mg/dL Adrenal panel 06/17/18 Range/Units 05:03 Sodium 136 (136-145) mEq/L Potassium 3.8 (3.5-5.1) mEq/L Chloride 104 (98-107) mEq/L Carbon Dioxide 24 (23-29) mEq/L BUN 19 (8-23) mg/dL Creatinine 1.07 (0.70-1.30) mg/dL Glucose 178 H (70-105) mg/dL Calcium 8.6 (8.6-10.3) mg/dL Consult Discharge Plan - Plan Referrals: Mecca Barcenas CNP [Advanced Practice Nurse] - 06/26/18 1:30 pm [facility] -
[2018-06-17 19:10] LABS: INR 1.2; Prothrombin Time 13.4 Seconds (9.4-12.1)
[2018-06-17] MEDS: *HR* Enoxaparin 100 MG/ML SYRINGE SQ SCH (20:24)
[2018-06-18] MEDS: Acetaminophen IV 1,000 MG/100 ML INFUS..BTL IVPB SCH ×4 (00:22→19:43)
[2018-06-18] MEDS: 0.9 % Sodium Chloride 1,000 ML IVC SCH (04:34)
[2018-06-18] MEDS: *HR* Heparin 5,000 UNIT/ML VIAL SQ SCH ×2 (04:57→15:24)
[2018-06-18] MEDS: *HR* Enoxaparin 100 MG/ML SYRINGE SQ SCH ×2 (04:57→19:44)
[2018-06-18] MEDS: *HR* Metformin 500 MG TABLET PO SCH ×2 (07:31→19:44)
[2018-06-18] MEDS: Insulin LISPRO 300 UNITS/3 ML VIAL SQ SCH ×4 (07:33→21:39)
[2018-06-18 08:16] LABS: Basophils % 0.2 %; Eosinophils % 0.3 %; Hematocrit 24.2 % (37.5-50.1); Hemoglobin 7.9 g/dL (12.9-16.9); Immature Granulocytes % 0.7 % (0-4); Lymphocytes % 7.4 %; Mean Corpuscular HGB Conc 32.6 g/dL (31.6-35.5); Mean Corpuscular Hemoglobin 33.6 pg (28.0-33.3); Monocytes # 0.9 K/mcL (0.0-1.3); Monocytes % 6.4 %; Neutrophils # 11.5 K/mcL (1.6-8.9); Platelet Count 140 K/mcL (140-400); Red Blood Count 2.35 M/mcL (4.19-5.50); Red Cell Distribution Width 13.9 % (11.5-14.5)
[2018-06-18 08:34] LABS: BUN/Creatinine Ratio 18 (6-26); Blood Urea Nitrogen 20 mg/dL (8-23); Calcium 8.4 mg/dL (8.6-10.3); Carbon Dioxide 25 mEq/L (23-29); Chloride 105 mEq/L (98-107); Glucose 195 mg/dL (70-105); Osmolality,Calculated 292 (280-300); Potassium 3.7 mEq/L (3.5-5.1); Sodium 137 mEq/L (136-145); eGFR For Non-African Americans > 60 (> 60)
--- NOTE | 2018-06-18 08:44 | General Surgery Progress Note ---
Date of Encounter: 06/18/18 Time of Encounter: 08:42 - Assessment and Plan (1) DVT, popliteal, acute Current Visit: Yes Status: Acute Newly diagnosed partial politeal DVT in left lower extremity but negative in right with edema and erythema bilateral similar to yesterday. Clinically more stable with now afebrile after 100.3 yesterday and tachycardia somewhat improved to 90s this morning. - Hgb 7.9 from 8.5 - continue lovenox 1g/kg two does given already Qualifiers: Laterality: left Qualified Code(s): I82.432 - Acute embolism and thrombosis of left popliteal vein (2) History of DVT (deep vein thrombosis) Current Visit: Yes Status: Acute see above (3) Anemia Current Visit: Yes Status: Chronic HgB 7.9 from 8.5 with baseline around 10 - continue to monitor Qualifiers: Anemia type: unspecified type Qualified Code(s): D64.9 - Anemia, unspecified (4) Choledocholithiasis Current Visit: No Status: Acute POD 3 Open cholecystectomy converted from laproscopic with Dr Womack - pathology pending - Continue clears, patient must have assistance to eat until OT can give more recommendation - Continue IVF at 50 - strict I/Os - continue daily wound care and joshua drain care - continue daily PPI - continue supportive care and pain management - PT consulted for mobilization will hold off due to DVT - up to chair with meals Social work consulted for discharge planning to [place] and needs per PT/OT (5) Diabetes mellitus Current Visit: No Status: Chronic May tolerate hyperglycemia with goal to stay below 200- continue medium ISS Qualifiers: Diabetes mellitus type: type 2 Diabetes mellitus 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 insulin use: unspecified long-term insulin use status Diabetes mellitus complication s tatus: without complication Qualified Code(s): E11.9 - Type 2 diabetes mellitus without complications (6) GERD (gastroesophageal reflux disease) Current Visit: Yes Status: Chronic PPI daily therapy continued Qualifiers: Esophagitis presence: with esophagitis Qualified Code(s): K21.0 - Gastro- esophageal reflux disease with esophagitis (7) BPH (benign prostatic hyperplasia) Current Visit: Yes Status: Chronic Fraser placed due to decreased out put- please continue and record strict I/Os Qualifiers: Lower urinary tract symptom presence: unspecified whether lower urinary tract symptoms present Qualified Code(s): N40.0 - Benign prostatic hyperplasia without lower urinary tract symptoms (8) Dementia Current Visit: Yes Status: Acute Confusion continues with unclear history of dementia and still fails to feed self, no family at bedside - OT consulted fro recommendations for feeding Qualifiers: Alzheimer's disease onset: unspecified onset Dementia behavioral disturbance: without behavioral disturbance Qualified Code(s): G30.9 - Alzheimer's disease, unspecified; F02.80 - Dementia in other diseases classified elsewhere without behavioral disturbance (9) DVT prophylaxis Current Visit: No Status: Acute (10) Sepsis Current Visit: Yes Status: Acute Technically meets SIRs criteria with tachycardia and elevated temperature but those are better explained by reaction to DVT - continue IVF Qualifiers: Sepsis type: sepsis due to unspecified organism Qualified Code(s): A41.9 - Sepsis, unspecified organism (11) Encephalopathy Current Visit: Yes Status: Acute Of unknown durations and etiology; unable to reach daughter by phone to gauge baseline but now refusing to eat even when aided - will call daughter again tomorrow, I left message asking her too call nurses station 3a - X-Ray chest and abdomen - UA Subjective Patient reports: still having pain, tolerating liquids well, afebrile, other (difficult to obtain ROS given patient's mental status) Objective Vital Signs - Last 8 Hours Temp Pulse Resp BP Pulse Ox 06/18/18 07:04 98.6 F 91 16 142/78 94 06/18/18 03:41 98.4 F 98 16 148/75 97 Intake and Output 06/17/18 06/18/18 06/18/18 23:59 07:59 15:59 Intake Total 100 / 100 1000 / 1000 Output Total 255 / 255 355 / 355 Balance -155 / -155 645 / 645 Intake: IV Fluids 100 / 100 1000 / 1000 0.9 % Sodium Chloride 1,000 ML 1000 / 1000 @ 50 mls/hr IVC .Q20H [facility] Rx#: [id number] Ofirmev 1,000 mg/100 ml 1,000 100 / 100 0 / 0 mg In 100 ml @ 400 mls/hr IVPB Q6HR [facility] Rx#:[id number] Output: Catheter 200 / 200 300 / 300 Wound Drainage 55 / 55 55 / 55 Right Abdomen 55 / 55 55 / 55 Other: Weight 103.6 kg Blood Glucose* 157 200 Patient Weight 06/18/18 23:59 Weight 103.6 kg - General physical appearance well developed, well nourished, no distress, obese - ENT normal pinna, normal nares, normal mucosa - Respiratory normal expansion, clear to auscultation, other (increased respiratory effort but better than yesterday) - Cardiovascular Cardiovascular exam: Present: RRR, no murmurs/rubs/gallops Addtional Comments: bilateral calf tenderness worse in right lower extremity - Abdomen Abdomen: Present: bowel sounds present, soft Abdominal Tenderness: RLQ (at incision) Hernia: none - Incision Incision: Present: draining (JOSHUA), clean and dry, serosanguinous, approximated. Absent: inflamed, purulent - Neurologic CN 2-12 grossly intact, normal coordination, normal sensation - Musculoskeletal other (leanins in bed, unable to feed self) - Psychiatric oriented to person ([facility] he is at [facility] and is 46 years old), other - Labs 06/18/18 07:13 06/18/18 07:13 Diabetes panel 06/18/18 Range/Units 07:13 Sodium 137 (136-145) mEq/L Potassium 3.7 (3.5-5.1) mEq/L Chloride 105 (98-107) mEq/L Carbon Dioxide 25 (23-29) mEq/L BUN 20 (8-23) mg/dL Creatinine 1.09 (0.70-1.30) mg/dL Glucose 195 H (70-105) mg/dL Calcium 8.4 L (8.6-10.3) mg/dL Calcium panel 06/18/18 Range/Units 07:13 Calcium 8.4 L (8.6-10.3) mg/dL Pituitary panel 06/18/18 Range/Units 07:13 Sodium 137 (136-145) mEq/L Potassium 3.7 (3.5-5.1) mEq/L Chloride 105 (98-107) mEq/L Carbon Dioxide 25 (23-29) mEq/L BUN 20 (8-23) mg/dL Creatinine 1.09 (0.70-1.30) mg/dL Glucose 195 H (70-105) mg/dL Calcium 8.4 L (8.6-10.3) mg/dL Adrenal panel 06/18/18 Range/Units 07:13 Sodium 137 (136-145) mEq/L Potassium 3.7 (3.5-5.1) mEq/L Chloride 105 (98-107) mEq/L Carbon Dioxide 25 (23-29) mEq/L BUN 20 (8-23) mg/dL Creatinine 1.09 (0.70-1.30) mg/dL Glucose 195 H (70-105) mg/dL Calcium 8.4 L (8.6-10.3) mg/dL Consult Discharge Plan - Plan Referrals: Mecca Barcenas CNP [Advanced Practice Nurse] - 06/26/18 1:30 pm [facility] [Primary Care Provider[facility] -
[2018-06-18] MEDS: Fluconazole 200 MG/100 ML 200 MG/100 ML BAG IVPB SCH (10:51)
[2018-06-18] MEDS: Famotidine 20 MG TABLET PO SCH (10:52)
[2018-06-18] MEDS: Cholecalciferol (D-3) 1,000 UNIT TABLET PO SCH (10:52)
[2018-06-18] MEDS: Furosemide 20 MG TABLET PO SCH (10:52)
[2018-06-18] MEDS: Gabapentin 100 MG CAPSULE PO SCH ×2 (10:52→21:35)
[2018-06-18] MEDS: Nystatin POWDER 30 GM BOTTLE TP SCH (10:53)
[2018-06-18] MEDS: OXYCODONE Oral CONC 10 MG/0.5 ML ORAL.SYG SL PRN (11:04)
[2018-06-18 21:06] LABS: Bilirubin,Urine Negative (Negative); Blood,Urine Large (Negative); Clarity,Urine Turbid (Clear); Color,Urine Yellow (Yellow); Glucose,Urine (UA) Normal (Normal); Ketones,Urine Negative (Negative); Leukocyte Esterase,Urine Moderate (Negative); Nitrite,Urine Positive (Negative); Protein,Urine 30 mg/dL (Neg-Trace); Specific Gravity,Urine 1.029 (1.010-1.025); Urobilinogen,Urine Normal (Normal)
[2018-06-18 21:10] LABS: Bacteria,Urine Many per hpf (None-Few); Hyaline Casts,Urine None Seen per lpf (None-Few); RBC,Urine 50-100 per hpf (0-3); Squamous Epithelial Cell,Urine Moderate per lpf (None-Few); WBC,Urine TNTC per hpf (0-3)
[2018-06-19] MEDS: Acetaminophen IV 1,000 MG/100 ML INFUS..BTL IVPB SCH ×4 (01:18→18:17)
[2018-06-19] MEDS: Nystatin POWDER 30 GM BOTTLE TP SCH ×2 (01:21→09:30)
[2018-06-19] MEDS: 0.9 % Sodium Chloride 1,000 ML IVC SCH ×2 (03:21→09:31)
[2018-06-19 05:14] LABS: Basophils % 0.3 %; Eosinophils # 0.1 K/mcL (0.0-0.6); Eosinophils % 1.1 %; Hematocrit 23.1 % (37.5-50.1); Hemoglobin 7.6 g/dL (12.9-16.9); Immature Granulocytes % 0.7 % (0-4); Lymphocytes # 1.6 K/mcL (0.6-4.6); Lymphocytes % 12.9 %; Mean Corpuscular HGB Conc 32.9 g/dL (31.6-35.5); Mean Corpuscular Hemoglobin 33.3 pg (28.0-33.3); Mean Corpuscular Volume 101.3 fL (83.0-100.0); Mean Platelet Volume 9.7 fL (9.4-12.4); Monocytes # 0.9 K/mcL (0.0-1.3); Monocytes % 7.1 %; Neutrophils # 9.5 K/mcL (1.6-8.9); Platelet Count 136 K/mcL (140-400); Red Blood Count 2.28 M/mcL (4.19-5.50); Red Cell Distribution Width 14.1 % (11.5-14.5); Segmented Neutrophils % 77.9 %
[2018-06-19 05:28] LABS: BUN/Creatinine Ratio 19 (6-26); Blood Urea Nitrogen 20 mg/dL (8-23); Calcium 8.4 mg/dL (8.6-10.3); Carbon Dioxide 24 mEq/L (23-29); Chloride 108 mEq/L (98-107); Glucose 149 mg/dL (70-105); Osmolality,Calculated 291 (280-300); Potassium 3.4 mEq/L (3.5-5.1); Sodium 138 mEq/L (136-145); eGFR For Non-African Americans > 60 (> 60)
[2018-06-19] MEDS: *HR* Enoxaparin 100 MG/ML SYRINGE SQ SCH ×2 (05:40→18:16)
--- NOTE | 2018-06-19 07:01 | General Surgery Progress Note ---
<Yaima Cadet - Last Filed: 06/19/18 13:42> Date of Encounter: 06/19/18 Time of Encounter: 06:59 - Assessment and Plan (1) Encephalopathy Current Visit: Yes Status: Acute Of unknown durations; unable to reach daughter by phone over the weekend to gauge baseline but now refusing to eat even when aided - Called caregiver, step-daughter Lolly- she believes that current metal status is change from his baseline although his vascular dementia does give very transient symptoms at home. When she came in today she noted decline and was worried aboaut his chronic cellultisis. She states need for SNF after discharge due to decrease in mental status and strength. She confirmes DNR DNI CCA but wants full medical care including antibiotic, TPN and transfusion as needed. - X-Ray chest and abdomen; possible ileus - UA positive esterase and nitrites, UTI possibly contributes to mental status - EKG reviewed; no documented history of CAD but right bundle branch block seen on previous EKG, QT interval wnl, no acute changes from -10-23 (2) UTI (urinary tract infection) Current Visit: Yes Status: Acute UTI possibly contributes to mental status; UA postive esterase and nitrites - levaquin IV Qualifiers: Urinary tract infection type: acute cystitis Qualified Code(s): N30.00 - Acute cystitis without hematuria (3) DVT, popliteal, acute Current Visit: Yes Status: Acute Partial politeal DVT in left lower extremity but negative in right with edema and erythema. Clinically stable with with erythema and edema similar to yesterday - Hgb 7.6 from 7.9 - continue lovenox 1g/kg two does given already Qualifiers: Laterality: left Qualified Code(s): I82.432 - Acute embolism and thrombosis of left popliteal vein (4) History of DVT (deep vein thrombosis) Current Visit: Yes Status: Acute see above (5) Anemia Current Visit: Yes Status: Chronic Acute on chronic. HgB 7.6 from 7.9 with baseline around 10 - continue to monitor - Iron profile - Family is okay with transfusion when necessary Qualifiers: Anemia type: unspecified type Qualified Code(s): D64.9 - Anemia, unspecified (6) Choledocholithiasis Current Visit: No Status: Acute POD 4 Open cholecystectomy converted from laproscopic with Dr Spahn - pathology pending - Continue clears, patient must have assistance to eat until OT can give more recommendation - Continue IVF at 50 - strict I/Os - continue daily wound care and joshua drain care - continue daily PPI - continue diflucan - continue supportive care and pain management - PT consulted for mobilization will hold off due to DVT - up to chair with meals - X-ray 06-18 abdominal showed possible ileus - start relistor Social work consulted for discharge planning to [place] and needs pending PT/OT evaluation- Discussed with daughter need SNF placement. 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 insulin use status Diabetes mellitus complication status : without complication Qualified Code(s): E11.9 - Type 2 diabetes mellitus without complications (8) GERD (gastroesophageal reflux disease) Current Visit: Yes Status: Chronic PPI daily therapy continued Qualifiers: Esophagitis presence: with esophagitis Qualified Code(s): K21.0 - Gastro- esophageal reflux disease with esophagitis (9) BPH (benign prostatic hyperplasia) Current Visit: Yes Status: Chronic Simon placed due to decreased out put- please continue and record strict I/Os Qualifiers: Lower urinary tract symptom presence: unspecified whether lower urinary tract symptoms present Qualified Code(s): N40.0 - Benign prostatic hyperplasia without lower urinary tract symptoms (10) Sepsis Current Visit: Yes Status: Acute Technically meets SIRs criteria with tachycardia and elevated temperature but those are better explained by reaction to DVT - continue IVF Qualifiers: Sepsis type: sepsis due to unspecified organism Qualified Code(s): A41.9 - Sepsis, unspecified organism (11) DVT prophylaxis Current Visit: No Status: Acute (12) Hypokalemia Current Visit: Yes Status: Acute K 3.4 unlikely to be full cause of alter mental status (13) Vascular dementia Current Visit: Yes Status: Acute Confusion continues with unclear history of vascular dementia with waxing and waning symptoms at home - still fails to feed self - OT consulted for recommendations for feeding Qualifiers: Dementia behavioral disturbance: without behavioral disturbance Qualified Code(s): F01.50 - Vascular dementia without behavioral disturbance (14) Malnutrition Current Visit: Yes Status: Acute Family states last full meal over one week about before surgery was planned for Oli 10-8. Qualifiers: Malnutrition type: unspecified type Qualified Code(s): E46 - Unspecified protein-calorie malnutrition (15) Cellulitis Current Visit: Yes Status: Chronic Chronic bilateral lower extremity cellulites - elevate extremities as compression bandage avoided due to DVT Qualifiers: Site of cellulitis: extremity Site of cellulitis of extremity: lower extremity Laterality: unspecified laterality Qualified Code(s): L03.119 - Cellulitis of unspecified part of limb Subjective Patient reports: still having pain, no bowel movement, afebrile Narrative: Limited due to patients mental staus; he can't describe yasmeen pain. He is able to speak a few sentences today beyond "no" and moaning of yesterday. No family at bedside Objective Vital Signs - Last 8 Hours Temp Pulse Resp BP Pulse Ox 06/19/18 06:47 97.8 F 87 15 156/83 94 06/19/18 04:01 98.9 F 86 18 145/74 94 Intake and Output 06/18/18 06/18/18 06/19/18 15:59 23:59 07:59 Intake Total 100 / 100 0 / 0 1400 / 1400 Output Total 200 / 200 300 / 300 430 / 430 Balance -100 / -100 -300 / -300 970 / 970 Intake: IV Fluids 100 / 100 1400 / 1400 0.9 % Sodium Chloride 1,000 ML 1000 / 1000 @ 50 mls/hr IVC .Q20H [facility] Rx#: [id number] Ofirmev 1,000 mg/100 ml 1,000 100 / 100 300 / 300 mg In 100 ml @ 400 mls/hr IVPB Q6HR [facility] Rx#:[id number] Diflucan Premix 200 MG/100 ML 100 / 100 200 mg In 100 ml @ 100 mls/hr IVPB DAILY [facility] Rx#:[id number] Oral 0 / 0 0 / 0 Output: Catheter 200 / 200 300 / 300 400 / 400 Wound Drainage 0 / 0 30 / 30 Right Abdomen 0 / 0 30 / 30 Other: Weight 100.8 kg Blood Glucose* 164 Patient Weight 06/19/18 23:59 Weight 100.8 kg - General physical appearance well developed, moderate distress, obese - Eyes normal ocular movement - ENT normal pinna, normal nares, normal mucosa - Respiratory normal expansion, clear to auscultation, other (increased work of breathing mild ) - Cardiovascular Cardiovascular exam: Present: RRR, no murmurs/rubs/gallops - Abdomen Abdomen: Present: bowel sounds present, soft, distended. Absent: guarding, rebound Abdominal Tenderness: LUQ, diffusely Hernia: none - Incision Incision: Present: draining, clean and dry, serosanguinous, approximated. Absent: swollen, inflamed - Integumentary no rash, no growths, no abnormal pigmentation - Neurologic confused, disoriented, memory loss - Musculoskeletal normal posture, other (bilateral calf tenderness) - Psychiatric oriented to person, other (speech is slowed and limited) - Labs 06/19/18 04:56 06/19/18 04:56 Diabetes panel 06/18/18 06/19/18 Range/Units 07:13 04:56 Sodium 137 138 (136-145) mEq/L Potassium 3.7 3.4 L (3.5-5.1) mEq/L Chloride 105 108 H (98-107) mEq/L Carbon Dioxide 25 24 (23-29) mEq/L BUN 20 20 (8-23) mg/dL Creatinine 1.09 1.05 (0.70-1.30) mg/dL Glucose 195 H 149 H (70-105) mg/dL Calcium 8.4 L 8.4 L (8.6-10.3) mg/dL Calcium panel 06/18/18 06/19/18 Range/Units 07:13 04:56 Calcium 8.4 L 8.4 L (8.6-10.3) mg/dL Pituitary panel 06/18/18 06/19/18 Range/Units 07:13 04:56 Sodium 137 138 (136-145) mEq/L Potassium 3.7 3.4 L (3.5-5.1) mEq/L Chloride 105 108 H (98-107) mEq/L Carbon Dioxide 25 24 (23-29) mEq/L BUN 20 20 (8-23) mg/dL Creatinine 1.09 1.05 (0.70-1.30) mg/dL Glucose 195 H 149 H (70-105) mg/dL Calcium 8.4 L 8.4 L (8.6-10.3) mg/dL Adrenal panel 06/18/18 06/19/18 Range/Units 07:13 04:56 Sodium 137 138 (136-145) mEq/L Potassium 3.7 3.4 L (3.5-5.1) mEq/L Chloride 105 108 H (98-107) mEq/L Carbon Dioxide 25 24 (23-29) mEq/L BUN 20 20 (8-23) mg/dL Creatinine 1.09 1.05 (0.70-1.30) mg/dL Glucose 195 H 149 H (70-105) mg/dL Calcium 8.4 L 8.4 L (8.6-10.3) mg/dL Consult Discharge Plan - Plan Referrals: Mecca Barcenas [employer]PER[employer]OR [Advanced Practice Nurse] - 06/26/18 1:30 pm [facility] - <Brandi Womack - Last Filed: 06/20/18 08:09> Date of Encounter: 06/19/18 Time of Encounter: 18:00 - Assessment and Plan (1) Diabetes mellitus Current Visit: No Status: Chronic Qualifiers: Diabetes mellitus type: type 2 Diabetes mellitus usp insulin 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 Diabetes mellitus complication status : without complication Qualified Code(s): E11.9 - Type 2 diabetes mellitus without complications (2) Choledocholithiasis Current Visit: No Status: Acute patient tolerating fulls - advance to diabetic diet for breakfast prn pain control OOB to chair/ambulate PT/OT - dp not hold off for dvt gi/dvt prophylaxis (3) GERD (gastroesophageal reflux disease) Current Visit: Yes Status: Chronic Qualifiers: Esophagitis presence: with esophagitis Qualified Code(s): K21.0 - Gastro- esophageal reflux disease with esophagitis (4) BPH (benign prostatic hyperplasia) Current Visit: Yes Status: Chronic dc simon tomorrow am Qualifiers: Lower urinary tract symptom presence: unspecified whether lower urinary tract symptoms present Qualified Code(s): N40.0 - Benign prostatic hyperplasia without lower urinary tract symptoms (5) Cutaneous candidiasis Current Visit: Yes Status: Acute (6) DVT, popliteal, acute Current Visit: Yes Status: Acute Qualifiers: Laterality: left Qualified Code(s): I82.432 - Acute embolism and thrombosis of left popliteal vein (7) Encephalopathy Current Visit: Yes Status: Acute patient does not have encephalopathy, is at his baseline (8) UTI (urinary tract infection) Current Visit: Yes Status: Acute Qualifiers: Urinary tract infection type: acute cystitis Qualified Code(s): N30.00 - Acute cystitis without hematuria Subjective Patient reports: still having pain, pain is less, tolerating liquids well, flatus, no bowel movement, afebrile Objective Vital Signs - Last 8 Hours Temp Pulse Resp BP Pulse Ox 06/20/18 06:49 98.1 F 81 16 124/68 98 06/20/18 03:50 98.2 F 83 15 118/67 96 Intake and Output 06/19/18 06/20/18 06/20/18 23:59 07:59 15:59 Intake Total 1220 / 1220 100 / 100 Output Total 0 / 0 615 / 615 Balance 1220 / 1220 -515 / -515 Intake: IV Fluids 1100 / 1100 100 / 100 0.9 % Sodium Chloride 1,000 ML 1000 / 1000 @ 50 mls/hr IVC .Q20H [facility] Rx#: [id number] Ofirmev 1,000 mg/100 ml 1,000 100 / 100 100 / 100 mg In 100 ml @ 400 mls/hr IVPB Q6HR [facility] Rx#:[id number] Oral 120 / 120 0 / 0 Output: Urine 0 / 0 Catheter 575 / 575 Wound Drainage 40 / 40 Right Abdomen 40 / 40 Other: Meal Dinner Percent of Meal Consumed 5% Weight 100.4 kg Blood Glucose* 148 139 Patient Weight 06/20/18 23:59 Weight 100.4 kg - General physical appearance well developed, well nourished, no distress, moderate pain - Eyes normal ocular movement - ENT normal mucosa, normocephalic - Neck Neck exam: trachea midline - Respiratory normal expansion, normal respiratory effort - Cardiovascular Cardiovascular exam: Present: RRR - Abdomen Abdomen: Present: bowel sounds present, soft, tender (appropriate post op tenderness). Absent: distended Additional Comments: magdalena drain - serosang - Incision Incision: Present: clean and dry, intact. Absent: draining, red, swollen, inflamed, serosanguinous - Integumentary no rash, no growths - Neurologic CN 2-12 grossly intact, normal sensation - Musculoskeletal normal posture - Psychiatric oriented to time, oriented to person, oriented to place, memory intact - Labs 06/20/18 03:47 06/20/18 03:47 Diabetes panel 06/20/18 Range/Units 03:47 Sodium 139 (136-145) mEq/L Potassium 3.6 (3.5-5.1) mEq/L Chloride 110 H (98-107) mEq/L Carbon Dioxide 21 L (23-29) mEq/L BUN 24 H (8-23) mg/dL Creatinine 0.98 (0.70-1.30) mg/dL Glucose 160 H (70-105) mg/dL Calcium 8.2 L (8.6-10.3) mg/dL Calcium panel 06/20/18 Range/Units 03:47 Calcium 8.2 L (8.6-10.3) mg/dL Pituitary panel 06/20/18 Range/Units 03:47 Sodium 139 (136-145) mEq/L Potassium 3.6 (3.5-5.1) mEq/L Chloride 110 H (98-107) mEq/L Carbon Dioxide 21 L (23-29) mEq/L BUN 24 H (8-23) mg/dL Creatinine 0.98 (0.70-1.30) mg/dL Glucose 160 H (70-105) mg/dL Calcium 8.2 L (8.6-10.3) mg/dL Adrenal panel 06/20/18 Range/Units 03:47 Sodium 139 (136-145) mEq/L Potassium 3.6 (3.5-5.1) mEq/L Chloride 110 H (98-107) mEq/L Carbon Dioxide 21 L (23-29) mEq/L BUN 24 H (8-23) mg/dL Creatinine 0.98 (0.70-1.30) mg/dL Glucose 160 H (70-105) mg/dL Calcium 8.2 L (8.6-10.3) mg/dL - Attending Attestation I examined this patient and my medical decision-making was reviewed with the Resident Physician. I agree with the documented findings, disposition and treatment plan as described except to the extent set forth below.
[2018-06-19] MEDS ORDERED: Methylnaltrexone 12 MG/0.6 ML SYRINGE SQ ONE (07:10)
[2018-06-19] MEDS ORDERED: Potassium Chloride 20 MEQ, Lidocaine 1% 2 ML in D5% in Water 250 ML IVPB ONE (07:19)
[2018-06-19 07:57] LABS: Iron < 10 mcg/dL (65-175); Transferrin 150 mg/dL (203-362)
[2018-06-19] MEDS: Insulin LISPRO 300 UNITS/3 ML VIAL SQ SCH ×4 (08:23→22:03)
[2018-06-19] MEDS: OXYCODONE Oral CONC 10 MG/0.5 ML ORAL.SYG SL PRN ×2 (09:21→22:12)
[2018-06-19] MEDS: Gabapentin 100 MG CAPSULE PO SCH ×2 (09:23→22:02)
[2018-06-19] MEDS: Cholecalciferol (D-3) 1,000 UNIT TABLET PO SCH (09:23)
[2018-06-19] MEDS: Famotidine 20 MG TABLET PO SCH (09:23)
[2018-06-19] MEDS: *HR* Metformin 500 MG TABLET PO SCH ×2 (09:23→18:15)
[2018-06-19] MEDS: Levofloxacin 500 MG/100 ML 500 MG/100 ML BAG IVPB SCH (09:24)
[2018-06-19] MEDS: Fluconazole 200 MG/100 ML 200 MG/100 ML BAG IVPB SCH (09:24)
[2018-06-19] MEDS: Furosemide 20 MG TABLET PO SCH (09:24)
--- NOTE | 2018-06-19 11:07 | Electrocardiograph Report ---
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
[2018-06-19] MEDS: Metoclopramide 10 MG/2 ML VIAL IVP SCH ×2 (12:59→18:15)
[2018-06-19 15:03] LABS: Basophils % 0.2 %; Eosinophils # 0.1 K/mcL (0.0-0.6); Eosinophils % 0.5 %; Hematocrit 24.6 % (37.5-50.1); Immature Granulocytes % 0.5 % (0-4); Lymphocytes # 1.2 K/mcL (0.6-4.6); Lymphocytes % 9.1 %; Mean Corpuscular HGB Conc 32.5 g/dL (31.6-35.5); Mean Corpuscular Hemoglobin 33.3 pg (28.0-33.3); Mean Corpuscular Volume 102.5 fL (83.0-100.0); Mean Platelet Volume 9.8 fL (9.4-12.4); Monocytes % 7.6 %; Neutrophils # 10.8 K/mcL (1.6-8.9); Platelet Count 153 K/mcL (140-400); Red Cell Distribution Width 13.8 % (11.5-14.5); Segmented Neutrophils % 82.1 %
[2018-06-20] MEDS: Nystatin POWDER 30 GM BOTTLE TP SCH ×3 (01:20→20:18)
[2018-06-20] MEDS: Acetaminophen IV 1,000 MG/100 ML INFUS..BTL IVPB SCH ×2 (01:27→06:07)
[2018-06-20] MEDS: Metoclopramide 10 MG/2 ML VIAL IVP SCH ×2 (01:27→06:07)
[2018-06-20] MEDS: 0.9 % Sodium Chloride 1,000 ML IVC SCH (03:55)
[2018-06-20 04:19] LABS: Basophils % 0.4 %; Eosinophils # 0.1 K/mcL (0.0-0.6); Eosinophils % 0.7 %; Hematocrit 22.1 % (37.5-50.1); Hemoglobin 7.3 g/dL (12.9-16.9); Immature Granulocytes % 0.6 % (0-4); Lymphocytes # 1.2 K/mcL (0.6-4.6); Lymphocytes % 11.3 %; Mean Corpuscular Hemoglobin 33.3 pg (28.0-33.3); Mean Corpuscular Volume 100.9 fL (83.0-100.0); Mean Platelet Volume 9.9 fL (9.4-12.4); Monocytes % 8.8 %; Neutrophils # 8.5 K/mcL (1.6-8.9); Platelet Count 148 K/mcL (140-400); Red Blood Count 2.19 M/mcL (4.19-5.50); Red Cell Distribution Width 13.8 % (11.5-14.5); Segmented Neutrophils % 78.2 %
[2018-06-20 04:38] LABS: BUN/Creatinine Ratio 24 (6-26); Blood Urea Nitrogen 24 mg/dL (8-23); Calcium 8.2 mg/dL (8.6-10.3); Carbon Dioxide 21 mEq/L (23-29); Chloride 110 mEq/L (98-107); Glucose 160 mg/dL (70-105); Osmolality,Calculated 295 (280-300); Potassium 3.6 mEq/L (3.5-5.1); Sodium 139 mEq/L (136-145); eGFR For Non-African Americans > 60 (> 60)
[2018-06-20] MEDS: *HR* Enoxaparin 100 MG/ML SYRINGE SQ SCH (06:07)
[2018-06-20] MEDS ORDERED: *HR* OxyCODONE/APAP 5/325 TABLET PO PRN (08:12)
[2018-06-20] MEDS ORDERED: OXYCODONE Oral CONC 10 MG/0.5 ML ORAL.SYG SL PRN (08:13)
[2018-06-20] MEDS: Insulin LISPRO 300 UNITS/3 ML VIAL SQ SCH ×4 (08:14→21:19)
[2018-06-20] MEDS: *HR* Metformin 500 MG TABLET PO SCH ×2 (08:16→16:53)
[2018-06-20] MEDS: Famotidine 20 MG TABLET PO SCH (08:16)
[2018-06-20] MEDS: Gabapentin 100 MG CAPSULE PO SCH ×2 (08:16→20:18)
[2018-06-20] MEDS: Cholecalciferol (D-3) 1,000 UNIT TABLET PO SCH (08:16)
[2018-06-20] MEDS: Furosemide 20 MG TABLET PO SCH (08:16)
[2018-06-20] MEDS: Levofloxacin 500 MG/100 ML 500 MG/100 ML BAG IVPB SCH (08:16)
[2018-06-20] MEDS: Apixaban 5 MG TABLET PO SCH ×2 (08:33→20:18)
[2018-06-20] MEDS ORDERED: Bisacodyl 10 MG RECTAL SUPPOSITORY RC SCH (09:00)
--- NOTE | 2018-06-20 09:01 | General Surgery Progress Note ---
<Kelsey Dasilva Leona - Last Filed: 06/20/18 09:26> Date of Encounter: 06/20/18 Time of Encounter: 08:00 - Assessment and Plan (1) Gallstone pancreatitis Current Visit: Yes Status: Acute Date of procedure: 06/15/18 Pre-op diagnosis: choledocholithiasis, gallstone pancreatitis Post-op diagnosis: same Procedure: Laparoscopic converted to open cholecystectomy Complications: none immediate Anesthesia: GETA, local Surgeon: Brandi Womack POD #5 as above. Final pathology noted chronic cholecystitis with cholelithiasis. His abdominal exam is as expected. He is sitting upright in the bed. He has active bowel sounds, soft, expected postoperative tenderness Plan: PRN pain control G.I. and DVT prophylaxis add scheduled and PRN stool softener/MiraLAX out of bed to chair at least TID PT and OT. I did call the office and explain that patient has had missed PT and OT visits since June 13, 2018 and we would like PT and OT to evaluate and treat the patient today. Discharge planning is pending PT and OT evaluation. Likely patient will require a PA rehab stay given he is most likely unstable for home healthcare. Diabetic diet stop IV fluids Repeat am labs Continue IV ATBX d/c VINH drain. 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 Fraser catheter discontinued. Bladder scan at 1300 if no urinary output (3) DVT prophylaxis Current Visit: Yes Status: Acute Therapeutic Lovenox. (4) Venous stasis dermatitis of both lower extremities Current Visit: Yes Status: Chronic Continue elevation. Can wrap with genny wraps at DC. (5) GERD (gastroesophageal reflux disease) Current Visit: Yes Status: Chronic Continue G.I. prophylaxis Qualifiers: Esophagitis presence: with esophagitis Qualified Code(s): K21.0 - Gastro- esophageal reflux disease with esophagitis (6) BPH (benign prostatic hyperplasia) Current Visit: Yes Status: Chronic Fraser discontinued continue Flomax Apply condom cath given we will give IV lasix in between units of PRBCs. May /dc condom cath after transfusions and reapply if incontinent Qualifiers: Lower urinary tract symptom presence: unspecified whether lower urinary tract symptoms present Qualified Code(s): N40.0 - Benign prostatic hyperplasia without lower urinary tract symptoms (7) DVT, popliteal, acute Current Visit: Yes Status: Acute Continue therapeutic Lovenox. Will transition to therapeutic eliquis when he is tolerating a diet Qualifiers: Laterality: left Qualified Code(s): I82.432 - Acute embolism and thrombosis of left popliteal vein (8) Sepsis Current Visit: Yes Status: Acute Sepsis likely concomitant given UTI with gram-negative benjie. His white blood cell count is improving. He is afebrile. He is on the appropriate medications Qualifiers: Sepsis type: sepsis due to unspecified organism Qualified Code(s): A41.9 - Sepsis, unspecified organism (9) Encephalopathy Current Visit: Yes Status: Resolved (10) UTI (urinary tract infection) Current Visit: Yes Status: Acute Preliminary culture with gram-negative rods. He is on levofloxacin. Qualifiers: Urinary tract infection type: acute cystitis Hematuria presence: without hematuria Qualified Code(s): N30.00 - Acute cystitis without hematuria (11) Vascular dementia Current Visit: Yes Status: Chronic appears at baseline Qualifiers: Dementia behavioral disturbance: without behavioral disturbance Qualified Code(s): F01.50 - Vascular dementia without behavioral disturbance (12) Anemia Current Visit: Yes Status: Chronic Patient was on ferrous sulfate 325 mg BID. His iron is noted to be less than 10. His percentage of saturation is unable to be calculated. We will stop PO iron and add then effort 250 mg daily for 3 days. HGb7.3; Given that hgb is downtrending for 5 days, will transfuse 2 U PRBC today and recheck in am. Vital signs stable. No evidence or concern for an acute bleed. 280 ml blood- loss noted per op report Qualifiers: Anemia type: unspecified type Qualified Code(s): D64.9 - Anemia, unspecified Subjective Patient reports: no new complaints, feels better, pain is less, tolerating liquids well, voiding w/o difficulty, flatus, no bowel movement, afebrile Objective Vital Signs - Last 8 Hours Temp Pulse Resp BP Pulse Ox 06/20/18 06:49 98.1 F 81 16 124/68 98 06/20/18 03:50 98.2 F 83 15 118/67 96 Intake and Output 06/19/18 06/20/18 06/20/18 23:59 07:59 15:59 Intake Total 1220 / 1220 200 / 200 480 / 480 Output Total 0 / 0 615 / 615 Balance 1220 / 1220 -415 / -415 480 / 480 Intake: IV Fluids 1100 / 1100 200 / 200 0.9 % Sodium Chloride 1,000 ML 1000 / 1000 @ 50 mls/hr IVC .Q20H [facility] Rx#: [id number] Ofirmev 1,000 mg/100 ml 1,000 100 / 100 200 / 200 mg In 100 ml @ 400 mls/hr IVPB Q6HR [facility] Rx#:[id number] Oral 120 / 120 0 / 0 480 / 480 Output: Urine 0 / 0 Catheter 575 / 575 Wound Drainage 40 / 40 Right Abdomen 40 / 40 Other: Meal Dinner Breakfast Percent of Meal Consumed 5% 25% Weight 100.4 kg Blood Glucose* 148 139 Patient Weight 06/20/18 23:59 Weight 100.4 kg - General physical appearance no distress, no pain - Eyes normal ocular movement - ENT normal mucosa, dentures, atraumatic, normocephalic - Neck Neck exam: trachea midline - Respiratory normal expansion, normal respiratory effort, clear to auscultation - Cardiovascular Cardiovascular exam: Present: RRR, distant heart sounds - Abdomen Abdomen: Present: bowel sounds present, soft, tender (Expected postoperative) Hernia: none - Genitourinary other (Fraser catheter in place. He has been getting Flomax.) - Integumentary no growths - Neurologic normal sensation - Musculoskeletal normal posture - Psychiatric oriented to person, oriented to place - Labs 06/20/18 03:47 06/20/18 03:47 Diabetes panel 06/20/18 Range/Units 03:47 Sodium 139 (136-145) mEq/L Potassium 3.6 (3.5-5.1) mEq/L Chloride 110 H (98-107) mEq/L Carbon Dioxide 21 L (23-29) mEq/L BUN 24 H (8-23) mg/dL Creatinine 0.98 (0.70-1.30) mg/dL Glucose 160 H (70-105) mg/dL Calcium 8.2 L (8.6-10.3) mg/dL Calcium panel 06/20/18 Range/Units 03:47 Calcium 8.2 L (8.6-10.3) mg/dL Pituitary panel 06/20/18 Range/Units 03:47 Sodium 139 (136-145) mEq/L Potassium 3.6 (3.5-5.1) mEq/L Chloride 110 H (98-107) mEq/L Carbon Dioxide 21 L (23-29) mEq/L BUN 24 H (8-23) mg/dL Creatinine 0.98 (0.70-1.30) mg/dL Glucose 160 H (70-105) mg/dL Calcium 8.2 L (8.6-10.3) mg/dL Adrenal panel 06/20/18 Range/Units 03:47 Sodium 139 (136-145) mEq/L Potassium 3.6 (3.5-5.1) mEq/L Chloride 110 H (98-107) mEq/L Carbon Dioxide 21 L (23-29) mEq/L BUN 24 H (8-23) mg/dL Creatinine 0.98 (0.70-1.30) mg/dL Glucose 160 H (70-105) mg/dL Calcium 8.2 L (8.6-10.3) mg/dL Consult Discharge Plan - Plan Referrals: Mecca Barcenas FOUNDER AND CHIEF TECHNICAL OFFICER [Advanced Practice Nurse] - 06/26/18 1:30 pm [facility] - <Brandi Womack - Last Filed: 06/20/18 16:12> Date of Encounter: 06/20/18 Time of Encounter: 15:15 - Assessment and Plan (1) Diabetes mellitus Current Visit: No Status: Chronic controlled, continue current regimen/MBS Qualifiers: Diabetes mellitus type: type 2 Diabetes mellitus group home insulin use: unspecified 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 insulin use status Diabetes mellitus complication status : without complication Qualified Code(s): E11.9 - Type 2 diabetes mellitus without complications (2) GERD (gastroesophageal reflux disease) Current Visit: Yes Status: Chronic Qualifiers: Esophagitis presence: with esophagitis Qualified Code(s): K21.0 - Gastro- esophageal reflux disease with esophagitis (3) BPH (benign prostatic hyperplasia) Current Visit: Yes Status: Chronic Qualifiers: Lower urinary tract symptom presence: unspecified whether lower urinary tract symptoms present Qualified Code(s): N40.0 - Benign prostatic hyperplasia without lower urinary tract symptoms (4) Cutaneous candidiasis Current Visit: Yes Status: Acute nystatin powder to affected groin areas BID (5) DVT, popliteal, acute Current Visit: Yes Status: Acute switch patient from lovenox to his home eliqius Qualifiers: Laterality: left Qualified Code(s): I82.432 - Acute embolism and thrombosis of left popliteal vein (6) UTI (urinary tract infection) Current Visit: Yes Status: Acute Qualifiers: Urinary tract infection type: acute cystitis Hematuria presence: without hematuria Qualified Code(s): N30.00 - Acute cystitis without hematuria (7) Choledocholithiasis Current Visit: No Status: Acute pt tolerated regular diet for lunch and breakfast, continue supplements DC catheter today, has condom cath for lasix for today only OT/PT - do not hold due to DVT eliquis for hx DVT/DVT current change pain medication to percocet OOB to chair for all meals pulmonary toilet gi/dvt prophylaxis Tal drain removed today DC planning Subjective Patient reports: feels better, still having pain, pain is less, tolerating a regular diet, voiding w/o difficulty, flatus, no bowel movement, afebrile Objective Vital Signs - Last 8 Hours Temp Pulse Resp BP Pulse Ox 06/20/18 14:56 98.0 F 94 22 151/76 99 06/20/18 14:40 98.1 F 91 20 144/77 98 06/20/18 14:16 98.2 F 91 15 142/78 98 06/20/18 13:50 98.1 F 94 22 147/81 98 06/20/18 11:10 98.1 F 85 28 155/82 97 06/20/18 11:04 98 06/20/18 10:50 97.8 F 83 20 151/69 98 Intake and Output 06/20/18 06/20/18 06/20/18 07:59 15:59 23:59 Intake Total 200 / 200 1260 / 1260 Output Total 615 / 615 Balance -415 / -415 1245 / 1245 Intake: IV Fluids 200 / 200 100 / 100 Ofirmev 1,000 mg/100 ml 1,000 200 / 200 mg In 100 ml @ 400 mls/hr IVPB Q6HR [facility] Rx#:[id number] Levaquin Premix 500mg/100mL 500 100 / 100 mg In 100 ml @ 100 mls/hr IVPB Q24H [facility] Rx#:[id number] Oral 0 / 0 810 / 810 Blood Product 350 / 350 Rbcs Leuko Poor As-1 Unit 350 / 350 [id number] Rbcs Leuko Poor As-1 Unit 0 / 0 [id number] Output: Catheter 575 / 575 0 / 0 Wound Drainage Right Abdomen Other: Meal Lunch Percent of Meal Consumed 5% Stool Size Small Stool Consistency liquid Stool Color Green Black Weight 100.4 kg Blood Glucose* 139 162 Patient Weight 06/20/18 23:59 Weight 100.4 kg - General physical appearance well developed, well nourished, no distress, moderate pain - Eyes PERRL, normal ocular movement - ENT normal mucosa, normocephalic - Neck Neck exam: trachea midline - Respiratory normal expansion, clear to auscultation - Cardiovascular Cardiovascular exam: Present: RRR - Abdomen Abdomen: Present: bowel sounds present, soft, tender - Incision Incision: Present: clean and dry, intact - Genitourinary other - Integumentary no growths - Neurologic CN 2-12 grossly intact - Musculoskeletal normal posture - Psychiatric oriented to time, oriented to person, oriented to place, memory intact - Labs 06/20/18 03:47 06/20/18 03:47 Diabetes panel 06/20/18 Range/Units 03:47 Sodium 139 (136-145) mEq/L Potassium 3.6 (3.5-5.1) mEq/L Chloride 110 H (98-107) mEq/L Carbon Dioxide 21 L (23-29) mEq/L BUN 24 H (8-23) mg/dL Creatinine 0.98 (0.70-1.30) mg/dL Glucose 160 H (70-105) mg/dL Calcium 8.2 L (8.6-10.3) mg/dL Calcium panel 06/20/18 Range/Units 03:47 Calcium 8.2 L (8.6-10.3) mg/dL Pituitary panel 06/20/18 Range/Units 03:47 Sodium 139 (136-145) mEq/L Potassium 3.6 (3.5-5.1) mEq/L Chloride 110 H (98-107) mEq/L Carbon Dioxide 21 L (23-29) mEq/L BUN 24 H (8-23) mg/dL Creatinine 0.98 (0.70-1.30) mg/dL Glucose 160 H (70-105) mg/dL Calcium 8.2 L (8.6-10.3) mg/dL Adrenal panel 06/20/18 Range/Units 03:47 Sodium 139 (136-145) mEq/L Potassium 3.6 (3.5-5.1) mEq/L Chloride 110 H (98-107) mEq/L Carbon Dioxide 21 L (23-29) mEq/L BUN 24 H (8-23) mg/dL Creatinine 0.98 (0.70-1.30) mg/dL Glucose 160 H (70-105) mg/dL Calcium 8.2 L (8.6-10.3) mg/dL - Attending Attestation I have personally performed a face to face evaluation on this patient. I have reviewed and agree with the care plan. History and Exam by me shows:
[2018-06-20] MEDS ORDERED: Furosemide 20 MG/2 ML VIAL IVP ONE (09:20)
[2018-06-20] MEDS ORDERED: 0.9 % Sodium Chloride 250 ML IVC SCH (09:30)
[2018-06-20] MEDS: Iron Sucrose Complex 250 MG in 0.9 % Sodium Chloride 250 ML IVPB SCH (18:58)
[2018-06-21 02:11] LABS: Basophils % 0.3 %; Eosinophils % 0.3 %; Hematocrit 27.5 % (37.5-50.1); Hemoglobin 9.3 g/dL (12.9-16.9); Immature Granulocytes % 1.2 % (0-4); Lymphocytes # 1.5 K/mcL (0.6-4.6); Lymphocytes % 12.7 %; Mean Corpuscular HGB Conc 33.8 g/dL (31.6-35.5); Mean Corpuscular Hemoglobin 32.2 pg (28.0-33.3); Mean Platelet Volume 10.1 fL (9.4-12.4); Monocytes # 1.2 K/mcL (0.0-1.3); Monocytes % 9.6 %; Neutrophils # 9.2 K/mcL (1.6-8.9); Platelet Count 160 K/mcL (140-400); Red Blood Count 2.89 M/mcL (4.19-5.50); Red Cell Distribution Width 15.4 % (11.5-14.5); Segmented Neutrophils % 75.9 %
[2018-06-21 02:13] LABS: Mean Corpuscular Volume 95.2 fL (83.0-100.0)
[2018-06-21 02:30] LABS: BUN/Creatinine Ratio 23 (6-26); Blood Urea Nitrogen 23 mg/dL (8-23); Calcium 8.4 mg/dL (8.6-10.3); Carbon Dioxide 23 mEq/L (23-29); Chloride 108 mEq/L (98-107); Glucose 130 mg/dL (70-105); Osmolality,Calculated 299 (280-300); Potassium 3.4 mEq/L (3.5-5.1); Sodium 142 mEq/L (136-145); eGFR For Non-African Americans > 60 (> 60)
[2018-06-21] MEDS: Levofloxacin 500 MG/100 ML 500 MG/100 ML BAG IVPB SCH (08:22)
[2018-06-21] MEDS: Insulin LISPRO 300 UNITS/3 ML VIAL SQ SCH ×5 (08:23→20:44)
[2018-06-21] MEDS: Furosemide 20 MG TABLET PO SCH (08:24)
[2018-06-21] MEDS: Cholecalciferol (D-3) 1,000 UNIT TABLET PO SCH (08:24)
[2018-06-21] MEDS: Gabapentin 100 MG CAPSULE PO SCH ×2 (08:24→19:42)
[2018-06-21] MEDS: Apixaban 5 MG TABLET PO SCH ×2 (08:24→19:42)
[2018-06-21] MEDS: *HR* Metformin 500 MG TABLET PO SCH ×2 (08:24→16:15)
[2018-06-21] MEDS: Iron Sucrose Complex 250 MG in 0.9 % Sodium Chloride 250 ML IVPB SCH (10:56)
[2018-06-21] MEDS: Famotidine 20 MG TABLET PO SCH (10:57)
[2018-06-21] MEDS: Nystatin POWDER 30 GM BOTTLE TP SCH ×2 (11:00→19:42)
--- NOTE | 2018-06-21 13:37 | General Surgery Progress Note ---
<Mecca Barcenas - Last Filed: 06/21/18 13:34> Date of Encounter: 06/21/18 Time of Encounter: 11:30 - Assessment and Plan (1) Choledocholithiasis Status: Acute POD #6 Laparoscopic converted to open cholecystectomy with Dr. Womack Pathology- Chronic cholecystitis with cholelithiasis Continue diabetic diet as tolerated with supplements IV fluids- 50ml/hour Strict I&Os Continue simon catheter to SD IS every 1 hour while awake Surgical drain removed 06/20/18 Daily incision care PPI therapy daily Supportive care Out of bed to chair with assistance for meals PT/OT for mobilization AM labs- CBC, BMP Social service consult for discharge planning- will need rehab at discharge (2) Diabetes mellitus Status: Chronic Controlled Continue current medication regimen Qualifiers: Diabetes mellitus type: type 2 Diabetes mellitus long term care pharmacist insulin use: unspecified nursing home insulin use status Diabetes mellitus complication status: without complication Qualified Code(s): E11.9 - Type 2 diabetes mellitus without complications (3) BPH (benign prostatic hyperplasia) Status: Chronic Continue flomax Continue simon catheter for ongoing urinary retention Strict I&Os Qualifiers: Lower urinary tract symptom presence: unspecified whether lower urinary tract symptoms present Qualified Code(s): N40.0 - Benign prostatic hyperplasia without lower urinary tract symptoms (4) GERD (gastroesophageal reflux disease) Status: Chronic PPI therapy daily Qualifiers: Esophagitis presence: with esophagitis Qualified Code(s): K21.0 - Gastro- esophageal reflux disease with esophagitis (5) Venous stasis dermatitis of both lower extremities Status: Chronic Supportive care (6) DVT, popliteal, acute Status: Acute Patient on Eliquis for acute DVT Qualifiers: Laterality: left Qualified Code(s): I82.432 - Acute embolism and thrombosis of left popliteal vein (7) UTI (urinary tract infection) Status: Acute Continue levaquin Qualifiers: Urinary tract infection type: acute cystitis Hematuria presence: without hematuria Qualified Code(s): N30.00 - Acute cystitis without hematuria (8) Acute urinary retention Status: Acute Continue flomax Continue simon catheter for ongoing urinary retention Strict I&Os (9) DVT prophylaxis Status: Acute Patient on Eliquis for acute DVT Subjective Patient reports: afebrile, other (Patient lying in bed and lethargic. Able to answer simple questions. States that he has no appetite and he does no feel like eating. Simon catheter re-inserted last evening due to continued urinary retention.) Objective Vital Signs - Last 8 Hours Temp Pulse Resp BP Pulse Ox 06/21/18 10:15 98.0 F 82 16 158/84 97 06/21/18 06:49 98.5 F 80 15 144/77 91 06/21/18 06:35 98.0 F 79 15 110/70 97 Intake and Output 06/20/18 06/21/18 06/21/18 23:59 07:59 15:59 Intake Total 552.5 / 552.5 0 / 0 340 / 340 Output Total 1000 / 1000 600 / 600 175 / 175 Balance -447.5 / -447.5 -600 / -600 165 / 165 Intake: IV Fluids 262.5 / 262.5 100 / 100 Venofer 250 MG In 0.9 % Sodium 262.5 / 262.5 Chloride 250 ML @ 130 mls/hr IVPB DAILY [facility] Rx#:[id number] Levaquin Premix 500mg/100mL 500 100 / 100 mg In 100 ml @ 100 mls/hr IVPB Q24H [facility] Rx#:[id number] Oral 0 / 0 0 / 0 240 / 240 Blood Product 290 / 290 Rbcs Leuko Poor As-1 Unit 290 / 290 [id number] Output: Urine 0 / 0 Catheter 1000 / 1000 600 / 600 175 / 175 Urethral (Simon) 600 / 600 Other: # Bowel Movements 0 Weight 99.8 kg Blood Glucose* 152 144 128 Patient Weight 06/21/18 23:59 Weight 99.8 kg - General physical appearance no distress, chronically ill, obese - Eyes PERRL - ENT normal mucosa, atraumatic, normocephalic - Neck Neck exam: trachea midline - Respiratory clear to auscultation, other (breath sounds diminished bilaterally and overall poor respiratory effort) - Cardiovascular Cardiovascular exam: Present: RRR - Abdomen Abdomen: Present: bowel sounds present, soft, tender (minimal, expected post- operative discomfort) - Incision Incision: Present: clean and dry, intact - Genitourinary other (simon catheter to SD with clear, yellow urine noted) - Neurologic CN 2-12 grossly intact - Musculoskeletal other (severe deconditioning) - Psychiatric oriented to person, oriented to place - Labs 06/21/18 01:44 06/21/18 01:44 Diabetes panel 10/17/18 Range/Units 01:44 Sodium 142 (136-145) mEq/L Potassium 3.4 L (3.5-5.1) mEq/L Chloride 108 H (98-107) mEq/L Carbon Dioxide 23 (23-29) mEq/L BUN 23 (8-23) mg/dL Creatinine 0.99 (0.70-1.30) mg/dL Glucose 130 H (70-105) mg/dL Calcium 8.4 L (8.6-10.3) mg/dL Calcium panel 06/21/18 Range/Units 01:44 Calcium 8.4 L (8.6-10.3) mg/dL Pituitary panel 06/21/18 Range/Units 01:44 Sodium 142 (136-145) mEq/L Potassium 3.4 L (3.5-5.1) mEq/L Chloride 108 H (98-107) mEq/L Carbon Dioxide 23 (23-29) mEq/L BUN 23 (8-23) mg/dL Creatinine 0.99 (0.70-1.30) mg/dL Glucose 130 H (70-105) mg/dL Calcium 8.4 L (8.6-10.3) mg/dL Adrenal panel 06/21/18 Range/Units 01:44 Sodium 142 (136-145) mEq/L Potassium 3.4 L (3.5-5.1) mEq/L Chloride 108 H (98-107) mEq/L Carbon Dioxide 23 (23-29) mEq/L BUN 23 (8-23) mg/dL Creatinine 0.99 (0.70-1.30) mg/dL Glucose 130 H (70-105) mg/dL Calcium 8.4 L (8.6-10.3) mg/dL Consult Discharge Plan - Plan Instructions: Open Cholecystectomy (DC) Additional Instructions: General Surgical Discharge Instructions 1. No pushing, pulling, or lifting greater than 15 lbs for 4 weeks (depending upon procedure). 2. You may shower beginning today, but no tub baths, soaking, or swimming for 2 weeks. 3. You may resume driving when you are off narcotics and are safe to react in a car. 4. Take ibuprofen every 8 hours for discomfort. If this does not relieve discomfort, you may take the as needed Percocet. Take narcotics as directed. Do not take more narcotics then directed and do not share your narcotics with any other person. Do not drink alcohol while on narcotics. 5. Take stool softeners (Colace) or a water based laxative (Miralax) while taking narcotics. You may hold for loose stools. 6. Report any fevers greater than 100.5F, increase abdominal discomfort, drainage that looks like pus, increased redness or pain at the surgical site, or any vomiting. 7. Report any pain in the calves, shortness of breath, or rapid heartbeat. 8. Follow-up in the office as directed. 9. Take your antibiotics as prescribed. Do not stop your antibiotics without talking to your healthcare provider. 10. Continue Simon catheter until seen by urology Referrals: Mecca Barcenas LNA [Advanced Practice Nurse] - 06/26/18 1:30 pm [facility] - Prescriptions: RX: OxyCODONE/APAP 5/325 [Percocet 5/325 MG] 1 each PO Q6HR PRN 7 Days #28 tablet PRN Reason: Pain Docusate Sodium [Colace] 100 mg PO BID PRN #30 capsule PRN Reason: Constipation - Attending Attestation For this encounter, I have reviewed the CURAM DEVELOPER or PA documentation, treatment plan, and medical decision making; and I have had face to face time with this patient. <Brandi Womack - Last Filed: 06/27/18 11:55> - Assessment and Plan (1) Diabetes mellitus Status: Chronic Qualifiers: Diabetes mellitus type: type 2 Diabetes mellitus long term care pharmacist insulin use: unspecified long term care pharmacist insulin use status Diabetes mellitus complication status: without complication Qualified Code(s): E11.9 - Type 2 diabetes mellitus without complications (2) GERD (gastroesophageal reflux disease) Status: Chronic Qualifiers: Esophagitis presence: with esophagitis Qualified Code(s): K21.0 - Gastro- esophageal reflux disease with esophagitis (3) BPH (benign prostatic hyperplasia) Status: Chronic Qualifiers: Lower urinary tract symptom presence: unspecified whether lower urinary tract symptoms present Qualified Code(s): N40.0 - Benign prostatic hyperplasia without lower urinary tract symptoms (4) DVT, popliteal, acute Status: Acute Qualifiers: Laterality: left Qualified Code(s): I82.432 - Acute embolism and thrombosis of left popliteal vein (5) UTI (urinary tract infection) Status: Resolved Qualifiers: Urinary tract infection type: acute cystitis Hematuria presence: without hematuria Qualified Code(s): N30.00 - Acute cystitis without hematuria (6) Choledocholithiasis Status: Acute encourage po intake, supplements PT/OT OOB to chair for all meals, meal assistance if needed prn pain control treating uti with levaquin Subjective Patient reports: no new complaints, still having pain, pain is less, tolerating a regular diet, flatus Objective - General physical appearance well developed, well nourished, no distress - Eyes PERRL - ENT normal mucosa, normocephalic - Neck Neck exam: trachea midline - Respiratory normal expansion - Cardiovascular Cardiovascular exam: Present: RRR - Abdomen Abdomen: Present: bowel sounds present, soft, tender - Incision Incision: Present: clean and dry, intact - Integumentary no rash - Neurologic CN 2-12 grossly intact - Musculoskeletal normal posture - Psychiatric oriented to time, oriented to person, oriented to place - Labs 06/22/18 04:23 06/22/18 04:23 - Attending Attestation I have personally performed a face to face evaluation on this patient. I have reviewed and agree with the care plan. History and Exam by me shows:
[2018-06-21] MEDS ORDERED: Ketorolac 30 MG/ML VIAL IVP ONE (17:54)
[2018-06-21] MEDS ORDERED: 0.9 % Sodium Chloride 1,000 ML IVC SCH (18:00)
[2018-06-22 11:34] LABS: Basophils # 0.1 K/mcL (0.0-0.2); Basophils % 0.7 %; Eosinophils # 0.1 K/mcL (0.0-0.6); Eosinophils % 1.3 %; Hematocrit 30.1 % (37.5-50.1); Immature Platelets 4.3 % (1.1-6.1); Lymphocytes # 1.6 K/mcL (0.6-4.6); Lymphocytes % 15.2 %; Mean Corpuscular HGB Conc 33.2 g/dL (31.6-35.5); Mean Corpuscular Hemoglobin 32.6 pg (28.0-33.3); Mean Platelet Volume 10.4 fL (9.4-12.4); Monocytes # 1.2 K/mcL (0.0-1.3); Monocytes % 10.9 %; Neutrophils # 7.3 K/mcL (1.6-8.9); Platelet Count 183 K/mcL (140-400); Red Blood Count 3.07 M/mcL (4.19-5.50); Red Cell Distribution Width 15.3 % (11.5-14.5); Segmented Neutrophils % 67.9 %
[2018-06-22] MEDS ORDERED: Gabapentin 100 MG CAPSULE PO ONE (12:21)
[2018-06-22] MEDS ORDERED: Cholecalciferol (D-3) 1,000 UNIT TABLET PO ONE (12:21)
[2018-06-22] MEDS ORDERED: Furosemide 20 MG TABLET PO ONE (12:21)
[2018-06-22] MEDS ORDERED: Famotidine 20 MG TABLET PO ONE (12:21)
[2018-06-22] MEDS ORDERED: Apixaban 5 MG TABLET PO ONE (12:21)
[2018-06-22] MEDS ORDERED: *HR* Metformin 500 MG TABLET PO ONE (12:21)
[2018-06-22] MEDS: Insulin LISPRO 300 UNITS/3 ML VIAL SQ SCH ×4 (12:28→23:37)
[2018-06-22] MEDS: Apixaban 5 MG TABLET PO SCH ×2 (12:29→20:36)
[2018-06-22] MEDS: Levofloxacin 500 MG/100 ML 500 MG/100 ML BAG IVPB SCH (12:29)
[2018-06-22] MEDS: *HR* Metformin 500 MG TABLET PO SCH ×2 (12:29→17:33)
[2018-06-22] MEDS: Furosemide 20 MG TABLET PO SCH (12:30)
[2018-06-22] MEDS: Famotidine 20 MG TABLET PO SCH (12:30)
[2018-06-22] MEDS: Gabapentin 100 MG CAPSULE PO SCH ×2 (12:30→20:37)
[2018-06-22] MEDS: Cholecalciferol (D-3) 1,000 UNIT TABLET PO SCH (12:31)
[2018-06-22 12:59] LABS: Anisocytosis 1+ (Not Present); Platelet Estimate Normal (Normal)
[2018-06-22] MEDS: Iron Sucrose Complex 250 MG in 0.9 % Sodium Chloride 250 ML IVPB SCH (13:48)
[2018-06-22] MEDS: Nystatin POWDER 30 GM BOTTLE TP SCH ×2 (13:50→20:37)
--- NOTE | 2018-06-22 15:02 | Event Note ---
Date of Encounter: 06/22/18 Time of Encounter: 08:00 See hard chart for progress note. Pt is ready for d/c pending placement. SW notes multiple applications have be faxed.
--- NOTE | 2018-06-22 15:33 | Discharge Summary ---
- NOTES TO OUTPATIENT PROVIDER Notes to Outpatient Provider: Patient needs outpatient urology appointment erick Orders not resulted at time of discharge: Pending orders 06/22/18 04:23 BMP [Basic Metabolic Panel] AM 0400 Date of Encounter: 06/23/18 Time of Encounter: 08:00 - Discharge Diagnosis (1) Gallstone pancreatitis Priority: Primary Status: Acute (2) Acute urinary retention Priority: Secondary Status: Acute (3) DVT prophylaxis Priority: Secondary Status: Acute (4) Venous stasis dermatitis of both lower extremities Priority: Secondary Status: Chronic (5) GERD (gastroesophageal reflux disease) Priority: Secondary Status: Chronic Qualifiers: Esophagitis presence: with esophagitis Qualified Code(s): K21.0 - Gastro- esophageal reflux disease with esophagitis (6) BPH (benign prostatic hyperplasia) Priority: Secondary Status: Chronic Qualifiers: Lower urinary tract symptom presence: unspecified whether lower urinary tract symptoms present Qualified Code(s): N40.0 - Benign prostatic hyperplasia without lower urinary tract symptoms (7) DVT, popliteal, acute Priority: Secondary Status: Acute Qualifiers: Laterality: left Qualified Code(s): I82.432 - Acute embolism and thrombosis of left popliteal vein (8) Sepsis Priority: Secondary Status: Resolved Qualifiers: Sepsis type: sepsis due to unspecified organism Qualified Code(s): A41.9 - Sepsis, unspecified organism (9) Encephalopathy Priority: Secondary Status: Resolved (10) UTI (urinary tract infection) Priority: Secondary Status: Resolved Qualifiers: Urinary tract infection type: acute cystitis Hematuria presence: without hematuria Qualified Code(s): N30.00 - Acute cystitis without hematuria (11) Vascular dementia Priority: Secondary Status: Chronic Qualifiers: Dementia behavioral disturbance: without behavioral disturbance Qualified Code(s): F01.50 - Vascular dementia without behavioral disturbance (12) Anemia Priority: Secondary Status: Chronic Qualifiers: Anemia type: unspecified type Qualified Code(s): D64.9 - Anemia, unspecified (13) Cutaneous candidiasis Priority: Secondary Status: Acute General Surgery Exam Initial Vital Signs Temp Pulse Resp BP Pulse Ox 97.6 F 83 18 110/52 98 06/12/18 09:35 06/12/18 09:35 06/12/18 09:35 06/12/18 09:35 06/12/18 09:35 Vital Signs Temp Pulse Resp BP Pulse Ox 06/22/18 12:30 97.8 F 73 16 169/81 98 06/21/18 19:51 98.4 F 82 17 148/78 96 Intake and Output 06/21/18 06/22/18 06/22/18 23:59 07:59 15:59 Intake Total 262.5 / 262.5 120 / 120 Output Total 200 / 200 Balance 62.5 / 62.5 120 / 120 Intake: IV Fluids 262.5 / 262.5 Venofer 250 MG In 0.9 % Sodium 262.5 / 262.5 Chloride 250 ML @ 130 mls/hr IVPB DAILY JEFERSON Rx#:[id number] Oral 120 / 120 Output: Catheter 200 / 200 Other: Meal Lunch Percent of Meal Consumed 10% Blood Glucose* 152 VITAL SIGNS: Reviewed. See [facility] GENERAL: In no apparent distress. Sitting upright in chair at bedside. Converses normally today. HEENT: Normocephalic, atraumatic, there is no neck adenopathy or JVD noted. CHEST/RESPIRATORY: The thorax is free from signs of trauma. Lung sounds: clear to auscultation, normal respiratory effort CARDIAC: Regular rate and rhythm. Normal S1 and S2, without murmurs, gallops, or rubs. VASCULAR: No Edema. 2+ peripheral pulses. ABDOMEN: soft, nontender, active bowel sounds INCISION: Surgical incision is clean, dry, and intact. There are no signs of cellulitis or infection noted. MUSCULOSKELETAL: Good range of motion of all major joints. Extremities without clubbing, cyanosis or edema. NEUROLOGIC EXAM: Alert and oriented x 3. Speech normal. Follows commands. PSYCHIATRIC: Mood normal. SKIN: No rash or lesions. - Hospital Course Hospital course: Mr. Urena is a 73 year old male presented on 06/12/2018 for an elective laparoscopic cholecystectomy. His initial surgery was delayed due to the lack of information provided by the daughter, patient and delay and timing receiving medical record from the [facility]. He was taken to the operating room on 06/15/2018 where he underwent a laparoscopic converted to open cholecystectomy and drain placement by Dr. Womack. Approximate blood loss was 280 mL. His final pathology noted chronic cholecystitis with cholelithiasis. His hospital course was complicated by encephalopathy related to UTI, acute urinary retention requiring placement of a Simon times 2, and acute on chronic anemia which was treated with 2 units packed red blood cells as well as venofer infusions. He is ambulating with assistance, simon remains in place, tolerating a diet, VSS, and afebrile. [facility]. He should continue Levaquin po for 2 days - Time Spent with Patient Total time spent providing and/or coordinating discharge services: Less than 30 minutes Specific discharge activities: d/c planning, placement, education - Discharge Medications Prescriptions: OxyCODONE/APAP 5/325 [Percocet 5/325 MG] 1 each PO Q6HR PRN 7 Days #28 tablet PRN Reason: Pain Docusate Sodium [Colace] 100 mg PO BID PRN #30 capsule PRN Reason: Constipation Levofloxacin [Levaquin] 750 mg PO DAILY 2 Days #2 tablet Home Medications: Apixaban [Eliquis] 5 mg PO BID 03/23/18 [History] Aspirin [Lo-Dose Aspirin EC] 81 mg PO DAILY 03/23/18 [History] Atorvastatin Calcium [Lipitor] 40 mg PO HS 03/23/18 [History] Calcium Carbonate/Vitamin D3 [Calcium 250+D Tablet] 1 tab PO BID 03/23/18 [History] Cholecalciferol (D-3) [Vitamin D] 2,000 unit PO DAILY 03/23/18 [History] Docusate [Colace] 100 mg PO BID PRN 03/23/18 [History] Ferrous Sulfate 325 mg PO BIDWM 03/23/18 [History] Furosemide [Lasix] 20 mg PO DAILY 03/23/18 [History] Gabapentin [Neurontin] 100 mg PO BID 03/23/18 [History] Melatonin/Pyridoxine HCl (B6) [Melatonin 3 mg Tablet] 3 tab PO HS 03/23/18 [History] Multivitamin [One Daily Multivitamin] 1 tab PO DAILY 03/23/18 [History] Ranitidine HCl [Heartburn Relief] 150 mg PO BID 03/23/18 [History] Lisinopril [Zestril] 5 mg PO DAILY 06/12/18 [History] Metformin HCl 1,000 mg PO BID 06/12/18 [History] Tamsulosin HCl [Flomax] 0.8 mg PO DAILY 06/12/18 [History] Docusate Sodium [Colace] 100 mg PO BID PRN #30 capsule 06/22/18 [Rx] Nystatin POWDER [Nystop] 1 appl TP BID bottle 06/22/18 [Rx] OxyCODONE/APAP 5/325 [Percocet 5/325 MG] 1 each PO Q6HR PRN 7 Days #28 tablet 06/22/18 [Rx] Levofloxacin [Levaquin] 750 mg PO DAILY 2 Days #2 tablet 06/23/18 [Rx] Allergies/Adverse Reactions: Allergy/AdvReac Type Severity Reaction Status Date / Time Amoxicillin Allergy See Verified 06/12/18 11:15 Comments clavulanic acid Allergy See Verified 06/12/18 11:15 Comments fluvastatin Allergy See Verified 06/12/18 11:15 Comments lovastatin Allergy See Verified 06/12/18 11:15 Comments niacin Allergy See Verified 06/12/18 11:15 Comments omeprazole Allergy See Verified 06/12/18 11:15 Comments simvastatin Allergy See Verified 06/12/18 11:15 Comments topiramate Allergy See Verified 06/12/18 11:15 Comments venlafaxine Allergy See Verified 06/12/18 11:15 Comments Date of admission: 06/16/18 13:45 Primary care physician: PCP [facility] Consults: 06/12/18 10:23 Consult to [employer] [CONS] Routine Reason for Consult: patients daughter states he will need to go to [facility] rehab 06/13/18 12:28 Consult to Occupational Therapy [CONS] Routine Comment: Evaluate, develop and implement POC Reason for Consult: deconditioning Does patient have active BEDREST order?: No Is patient medically & hemodynamically stable?: Yes Patient assessed for mobility or mobilized this visit?: No Consult to Physical Therapy [CONS] Routine Comment: Evaluate, develop and implement POC Reason for Consult: deconditioning Does patient have active BEDREST order?: No Is patient medically & hemodynamically stable?: Yes Patient assessed for mobility or mobilized this visit?: No 06/17/18 10:01 Consult to Occupational Therapy [CONS] Stat Comment: Evaluate, develop and implement POC Reason for Consult: patient now unable to feed self - several missed visits but must have reccomendations Does patient have active BEDREST order?: No Is patient medically & hemodynamically stable?: Yes Patient assessed for mobility or mobilized this visit?: Yes Discharging clinician: Kelsey Dasilva Anticipated date of discharge: 06/23/18 Labs on day of discharge: Labs from last 24 hours 06/22/18 06/22/18 06/22/18 11:23 07:23 04:23 WBC 10.8 RBC 3.07 L Hgb 10.0 L Hct 30.1 L MCV 98.0 MCH 32.6 MCHC 33.2 RDW 15.3 H Plt Count 183 MPV 10.4 Immature Gran % 4.0 Seg Neutrophils % 67.9 Lymphocytes % 15.2 Monocytes % 10.9 Eosinophils % 1.3 Basophils % 0.7 Neutrophils # 7.3 Lymphocytes # 1.6 Monocytes # 1.2 Eosinophils # 0.1 Basophils # 0.1 Platelet Estimate Normal Immature Plt Fraction 4.3 Anisocytosis 1+ A POC Glucose 199 H 130 H 06/21/18 06/21/18 06/21/18 20:00 16:42 11:15 WBC RBC Hgb Hct MCV MCH MCHC RDW Plt Count MPV Immature Gran % Seg Neutrophils % Lymphocytes % Monocytes % Eosinophils % Basophils % Neutrophils # Lymphocytes # Monocytes # Eosinophils # Basophils # Platelet Estimate Immature Plt Fraction Anisocytosis POC Glucose 152 H 146 H 128 H 06/20/18 06/20/18 06/20/18 16:43 12:23 06:59 WBC RBC Hgb Hct MCV MCH MCHC RDW Plt Count MPV Immature Gran % Seg Neutrophils % Lymphocytes % Monocytes % Eosinophils % Basophils % Neutrophils # Lymphocytes # Monocytes # Eosinophils # Basophils # Platelet Estimate Immature Plt Fraction Anisocytosis POC Glucose 152 H 162 H 139 H - Impressions ITS Impressions Chest/Abdomen X-ray 06/18/18 17:32 IMPRESSION: Postsurgical changes within the right upper quadrant. Gaseous dilation of small and large bowel, which may suggest ileus. Obstruction is considered unlikely. D/ / You Childress MD / You Childress MD Interpreting Provider: You Childress MD Abdomen X-Ray 06/19/18 08:31 IMPRESSION: Nonspecific bowel gas pattern but with decreased gaseous prominence of large and small bowel loops as compared to prior exam 06/18/2018. No findings for obstruction or intraperitoneal free air. D/ / 06/19/2018 10:59:37 Calixto Pyle MD / stephanie Interpreting Provider: Calixto Pyle MD - Patient Status Disposition: Transfer SNF Condition: Fair Functional capacity at discharge: wheelchair bound Overall status at discharge: patient is not back to baseline - Discharge Instructions Instructions: Open Cholecystectomy (DC) Follow Up With: Mecca Barcenas [employer]URING LEADER [Advanced Practice Nurse] - 06/26/18 1:30 pm [facility] - Additional Instructions: General Surgical Discharge Instructions 1. No pushing, pulling, or lifting greater than 15 lbs for 4 weeks (depending upon procedure). 2. You may shower beginning today, but no tub baths, soaking, or swimming for 2 weeks. 3. You may resume driving when you are off narcotics and are safe to react in a car. 4. Take ibuprofen every 8 hours for discomfort. If this does not relieve discomfort, you may take the as needed Percocet. Take narcotics as directed. Do not take more narcotics then directed and do not share your narcotics with any other person. Do not drink alcohol while on narcotics. 5. Take stool softeners (Colace) or a water based laxative (Miralax) while taking narcotics. You may hold for loose stools. 6. Report any fevers greater than 100.5F, increase abdominal discomfort, drainage that looks like pus, increased redness or pain at the surgical site, or any vomiting. 7. Report any pain in the calves, shortness of breath, or rapid heartbeat. 8. Follow-up in the office as directed. 9. Take your antibiotics as prescribed. Do not stop your antibiotics without talking to your healthcare provider. 10. Continue Simon catheter until seen by urology - Diet and Activity Activity: as per physical therapy Diet: advance to your usual diet
[2018-06-22 15:37] LABS: BUN/Creatinine Ratio 22 (6-26); Blood Urea Nitrogen 26 mg/dL (8-23); Calcium 8.3 mg/dL (8.6-10.3); Carbon Dioxide 16 mEq/L (23-29); Chloride 107 mEq/L (98-107); Glucose 168 mg/dL (70-105); Osmolality,Calculated 293 (280-300); Potassium 4.6 mEq/L (3.5-5.1); Sodium 137 mEq/L (136-145); eGFR For Non-African Americans > 60 (> 60)
--- NOTE | 2018-06-22 15:44 | Physician Discharge Referral ---
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 Institutional Level of Care: Skilled - Diagnosis (1) Gallstone pancreatitis Priority: Primary Status: Acute (2) Acute urinary retention Priority: Secondary Status: Acute (3) DVT prophylaxis Priority: Secondary Status: Acute (4) Venous stasis dermatitis of both lower extremities Priority: Secondary Status: Chronic (5) GERD (gastroesophageal reflux disease) Priority: Secondary Status: Chronic (6) BPH (benign prostatic hyperplasia) Priority: Secondary Status: Chronic (7) DVT, popliteal, acute Priority: Secondary Status: Acute (8) Sepsis Priority: Secondary Status: Resolved (9) Encephalopathy Priority: Secondary Status: Resolved (10) UTI (urinary tract infection) Status: Resolved (11) Vascular dementia Priority: Secondary Status: Chronic (12) Anemia Priority: Secondary Status: Chronic (13) Cutaneous candidiasis Priority: Secondary Status: Acute Expected Duration of Placement: less than 30 days Prognosis: Fair Aware of Diagnosis: Family - Transfer Medications Prescriptions: OxyCODONE/APAP 5/325 [Percocet 5/325 MG] 1 each PO Q6HR PRN 7 Days #28 tablet PRN Reason: Pain Docusate Sodium [Colace] 100 mg PO BID PRN #30 capsule PRN Reason: Constipation Home Medications: Apixaban [Eliquis] 5 mg PO BID 03/23/18 [History] Aspirin [Lo-Dose Aspirin EC] 81 mg PO DAILY 03/23/18 [History] Atorvastatin Calcium [Lipitor] 40 mg PO HS 03/23/18 [History] Calcium Carbonate/Vitamin D3 [Calcium 250+D Tablet] 1 tab PO BID 03/23/18 [History] Cholecalciferol (D-3) [Vitamin D] 2,000 unit PO DAILY 03/23/18 [History] Docusate [Colace] 100 mg PO BID PRN 03/23/18 [History] Ferrous Sulfate 325 mg PO BIDWM 03/23/18 [History] Furosemide [Lasix] 20 mg PO DAILY 03/23/18 [History] Gabapentin [Neurontin] 100 mg PO BID 03/23/18 [History] Melatonin/Pyridoxine HCl (B6) [Melatonin 3 mg Tablet] 3 tab PO HS 03/23/18 [History] Multivitamin [One Daily Multivitamin] 1 tab PO DAILY 03/23/18 [History] Ranitidine HCl [Heartburn Relief] 150 mg PO BID 03/23/18 [History] Lisinopril [Zestril] 5 mg PO DAILY 06/12/18 [History] Metformin HCl 1,000 mg PO BID 06/12/18 [History] Tamsulosin HCl [Flomax] 0.8 mg PO DAILY 06/12/18 [History] Docusate Sodium [Colace] 100 mg PO BID PRN #30 capsule 06/22/18 [Rx] Nystatin POWDER [Nystop] 1 appl TP BID bottle 06/22/18 [Rx] OxyCODONE/APAP 5/325 [Percocet 5/325 MG] 1 each PO Q6HR PRN 7 Days #28 tablet 06/22/18 [Rx] Allergies/Adverse Reactions: Allergy/AdvReac Type Severity Reaction Status Date / Time Amoxicillin Allergy See Verified 06/12/18 11:15 Comments clavulanic acid Allergy See Verified 06/12/18 11:15 Comments fluvastatin Allergy See Verified 06/12/18 11:15 Comments lovastatin Allergy See Verified 06/12/18 11:15 Comments niacin Allergy See Verified 06/12/18 11:15 Comments omeprazole Allergy See Verified 06/12/18 11:15 Comments simvastatin Allergy See Verified 06/12/18 11:15 Comments topiramate Allergy See Verified 06/12/18 11:15 Comments venlafaxine Allergy See Verified 06/12/18 11:15 Comments - Respiratory Orders Smoking Cessation: Smoking cessation has been advised. For more information, call the [place] Tobacco Quit Line at 6-215-GYGX-NOW. - Ancillary Orders May use pressure relief devices daily prn - Advance Directives Living Will: Yes Power of Metal Gauge Maker for Health Care: Yes Code Status: DNR-Arrest - Mobility Orders Ambulate - Rehabiliation Orders Rehab Potential: Fair Rehab Orders: Evaluation for Physical Therapy, Evaluation for Occupational Therapy - Treatments Skin tear care topically daily PRN per policy, May check for fecal impaction rectally daily PRN List/Other: General Surgical Discharge Instructions 1. No pushing, pulling, or lifting greater than 15 lbs for 4 weeks (depending upon procedure). 2. You may shower beginning today, but no tub baths, soaking, or swimming for 2 weeks. 3. You may resume driving when you are off narcotics and are safe to react in a car. 4. Take ibuprofen every 8 hours for discomfort. If this does not relieve discomfort, you may take the as needed Percocet. Take narcotics as directed. Do not take more narcotics then directed and do not share your narcotics with any other person. Do not drink alcohol while on narcotics. 5. Take stool softeners (Colace) or a water based laxative (Miralax) while taking narcotics. You may hold for loose stools. 6. Report any fevers greater than 100.5F, increase abdominal discomfort, drai nage that looks like pus, increased redness or pain at the surgical site, or any vomiting. 7. Report any pain in the calves, shortness of breath, or rapid heartbeat. 8. Follow-up in the office as directed. 9. Take your antibiotics as prescribed. Do not stop your antibiotics without talking to your healthcare provider. 10. Continue Fraser catheter until seen by urology; pt needs a urology consult as OP - Diet Orders Cardiac (diabetic) CERTIFICATION: I certify that the transfer of the above named patient to an Extended Care Facility is necessary for the continuing treatment of the diagnosis listed. The above information is true and accurate reflection of patient's current c ondition. Confidential - Redisclosure prohibited without a patient's written consent.
[2018-06-23 07:46] VITALS: BP 155/75
[2018-06-23] MEDS ORDERED: levoFLOXacin 500 MG TABLET PO SCH (09:00)
[2018-06-23] MEDS: Gabapentin 100 MG CAPSULE PO SCH (09:25)
[2018-06-23] MEDS: Furosemide 20 MG TABLET PO SCH (09:26)
[2018-06-23] MEDS: Famotidine 20 MG TABLET PO SCH (09:26)
[2018-06-23] MEDS: Apixaban 5 MG TABLET PO SCH (09:26)
[2018-06-23] MEDS: *HR* Metformin 500 MG TABLET PO SCH (09:26)
[2018-06-23] MEDS: Cholecalciferol (D-3) 1,000 UNIT TABLET PO SCH (09:26)
[2018-06-23] MEDS: Insulin LISPRO 300 UNITS/3 ML VIAL SQ SCH (09:27)
== END 2018-06-23 12:22 | DRG 853 ==
LOC: 3ANU 09:00 → SAMDAY 09:00 → 3ANU 11:48
PROVIDERS: ADMIT Surgery; ATTEND Surgery